=== PATIENT | male | born 1950 | race Caucasian/White ===

== ENCOUNTER 2022-02-08 07:44 | Outpatient (CLI) | payer MEDICARE, SELFPAY ==
--- NOTE | 2022-02-08 08:00 | CRLHL7_ITS ---
For Patients: As a result of the 21st Century Cures Act, medical imaging exams and procedure reports are released immediately into your electronic medical record. You may view this report before your referring provider. If you have questions, please contact your health care provider. Indication: Follow up nodule Technique: Noncontrast CT chest Comparison: CT chest 11/01/2021 and 09/07/2021 Findings: Median sternotomy heart size is normal. Dense coronary artery calcification. No pericardial effusion. No pleural effusion. Irregular nodule anterior left upper lobe measuring 5 millimeters on 07/26. Decrease from the prior study. Irregular nodule superior aspect of the right lower lobe measures 1 cm decreased in size series 3, image 41 4 millimeter nodule along the minor fissure on the right image 52 is unchanged from 09/07/2021 basilar and lingular atelectasis. Cholelithiasis. Low-attenuation lesion the right kidney incompletely assessed. Low-attenuation lesion left kidney with dependent density which may represent layering calcification incompletely assessed. No suspicious bony lesions are seen. Impression: 1. Two previous irregular nodules in the anterior left upper lobe and superior aspect of the right lower lobe are decreased in size. No new nodules are seen. No acute pulmonary findings. [employer] GUID[employer] - SOLID NODULES: SINGLE LOW RISK - nodule less than 6 mm: No routine follow-up. - nodule 6-8 mm: CT at 6-12 months, then consider CT at 18-24 months. - nodule greater than 8 mm: Consider CT at 3 months, PET/CT or tissue sampling. SINGLE HIGH RISK - nodule less than 6 mm: Optional CT at 12 months. - nodule 6-8 mm: CT at 6-12 months, then CT at 18-24 months. - nodule greater than 8 mm: Consider CT at 3 months, PET/CT or tissue sampling. MULTIPLE LOW RISK - nodule less than 6 mm: No routine follow-up. - nodule 6-8 mm: CT at 3-6 months, then consider CT at 18-24 months. - nodule greater than 8 mm: CT at 3-6 months, then consider CT at 18-24 months. MULTIPLE HIGH RISK - nodule less than 6 mm: Optional CT at 12 months. - nodule 6-8 mm: CT at 3-6 months, then at 18-24 months. - nodule greater than 8 mm: CT at 3-6 months, then at 18-24 months. Please note that all CT scans at this facility use dose modulation, iterative reconstruction, and/or weight-based dosing when appropriate to reduce radiation dose to as low as reasonably achievable. Dictated by Abi Hatch MD @ 02/08/2022 9:52:47 AM (Electronically Signed)
== END 2022-02-08 07:45 | disposition home or self-care (01) ==
PROVIDERS: PCP Family Medicine; Visit Provider Internal Medicine Pulmonary Disease
DX: R91.1 Solitary pulmonary nodule (principal)
CPT/HCPCS: 71250

== ENCOUNTER 2022-02-11 08:33 | Outpatient (CLI) | payer MEDICARE, SELFPAY | END 2022-02-11 08:34 | disposition home or self-care (01) | LOC: RAD 08:34 | PROVIDERS: PCP Family Medicine; Visit Provider Internal Medicine Cardiovascular Disease | DX: I35.0 Nonrheumatic aortic (valve) stenosis (principal); I35.1 Nonrheumatic aortic (valve) insufficiency; I34.0 Nonrheumatic mitral (valve) insufficiency; G45.9 Transient cerebral ischemic attack, unspecified | CPT/HCPCS: 93306 ==

== ENCOUNTER 2022-02-21 10:02 | Outpatient (CLI) | payer MEDICARE, SELFPAY ==
[2022-02-21 09:28] LABS: Albumin* 4.6 g/dL (3.3-5.0)
[2022-02-21 09:31] LABS: Aspartate Amino Transferase* 29 U/L (12-35); Bilirubin Direct* 0.1 mg/dL (0.0-0.5); Bilirubin Total* 0.8 mg/dL (0.1-1.5); Total Protein* 7.3 g/dL (6.0-8.3)
[2022-02-21 09:32] LABS: Alanine Aminotransferase* 28 U/L (4-50); Alkaline Phosphatase* 61 U/L (40-150)
[2022-02-25 14:56] LABS: Blood Urea Nitrogen* 20 mg/dL (7-30); Calcium* 9.7 mg/dL (8.4-10.6); Carbon Dioxide* 25 mmol/L (20-32); Chloride* 102 mmol/L (96-114); Creatinine* 1.4 mg/dL (0.5-1.5); Estimated Glomerular Filt Rate 53 ml/min; Glucose* 150 mg/dL (60-115); Potassium* 5.1 mmol/L (3.6-5.1); Sodium* 137 mmol/L (135-149)
[2022-02-25 14:57] LABS: Phosphorus* 4.6 mg/dL (2.5-4.5)
== END 2022-02-21 10:03 | disposition home or self-care (01) ==
PROVIDERS: PCP Family Medicine; Visit Provider Family Medicine
DX: Z79.899 Other long term (current) drug therapy (principal); K21.9 Gastro-esophageal reflux disease without esophagitis
CPT/HCPCS: 80069; 80076

== ENCOUNTER 2022-05-16 08:28 | Outpatient (CLI) | payer MEDICARE, SELFPAY ==
[2022-05-16 14:29] LABS: Chloride* 110 mmol/L (96-114); Potassium* 5.8 mmol/L (3.6-5.1); Sodium* 146 mmol/L (135-149)
[2022-05-16 14:30] LABS: Blood Urea Nitrogen* 17 mg/dL (7-30); Carbon Dioxide* 26 mmol/L (20-32); Creatinine* 1.3 mg/dL (0.5-1.5); Estimated Glomerular Filt Rate 58 ml/min; Glucose* 105 mg/dL (60-115)
[2022-05-16 14:31] LABS: Phosphorus* 4.4 mg/dL (2.5-4.5)
[2022-05-16 14:45] LABS: PSA Screen* 1.58 ng/mL (0.10-4.00)
[2022-05-18 05:14] LABS: Vitamin D, 1,25-Dihydroxy 62.6 pg/mL (19.9-79.3)
== END 2022-05-16 08:29 | disposition home or self-care (01) ==
PROVIDERS: PCP Family Medicine; Visit Provider Family Medicine
DX: Z00.00 Encounter for general adult medical examination without abnormal findings (principal); E87.5 Hyperkalemia; G45.9 Transient cerebral ischemic attack, unspecified; I35.0 Nonrheumatic aortic (valve) stenosis; R73.03 Prediabetes; R53.83 Other fatigue; Z12.5 Encounter for screening for malignant neoplasm of prostate; Z79.899 Other long term (current) drug therapy
CPT/HCPCS: 80048; 82652; 84100; 84153

== ENCOUNTER 2022-08-12 07:34 | Outpatient (CLI) | payer MEDICARE, SELFPAY | END 2022-08-12 07:35 | disposition home or self-care (01) | LOC: RAD 07:34 | PROVIDERS: PCP Family Medicine; Visit Provider Internal Medicine Cardiovascular Disease | DX: I35.0 Nonrheumatic aortic (valve) stenosis (principal); I35.1 Nonrheumatic aortic (valve) insufficiency; I34.0 Nonrheumatic mitral (valve) insufficiency | CPT/HCPCS: 93306 ==

== ENCOUNTER 2022-11-18 14:27 | Outpatient (CLI) | payer MEDICARE, SELFPAY | END 2022-11-18 14:28 | disposition home or self-care (01) | PROVIDERS: PCP Family Medicine; Visit Provider Family Medicine | DX: G62.9 Polyneuropathy, unspecified (principal); R53.83 Other fatigue | CPT/HCPCS: 82607; 84443 ==

== ENCOUNTER 2022-12-14 07:20 | Outpatient (CLI) | payer MEDICARE, SELFPAY | END 2022-12-14 07:21 | disposition home or self-care (01) | LOC: NFLDREF 12-15 10:56 | PROVIDERS: PCP Family Medicine; Referring Provider Family Medicine; Visit Provider Family Medicine | DX: E78.5 Hyperlipidemia, unspecified (principal) | CPT/HCPCS: 80061 ==

== ENCOUNTER 2023-03-12 17:55 | Emergency (ER) | payer MEDICARE, SELFPAY ==
[2023-03-12] VITALS (12 sets, daily range): BP systolic 130–184; BP diastolic 77–86; PULSE 64–81; RESP 16–20; TEMP 37.3; O2SAT 95–99
--- NOTE | 2023-03-12 18:22 | CRLHL7_ITS ---
For Patients: As a result of the Century Cures Act, medical imaging exams and procedure reports are released immediately into your electronic medical record. You may view this report before your referring provider. If you have questions, please contact your health care provider. INDICATION: Chest pain TECHNIQUE: Chest 2 views. COMPARISON: Chest x-ray 03/09/2021 FINDINGS: Stable postsurgical changes of median sternotomy. The heart is normal in size. The pulmonary vasculature is within normal limits. The lungs are clear without focal consolidation, pleural effusion or pneumothorax. There are mild degenerative changes of the thoracic spine. IMPRESSION: Stable chest without acute process. Dictated by Lynda Elena MD @ 03/12/2023 7:18:25 PM Dictated by: Lynda Elena MD @ 03/12/2023 19:18:32 (Electronically Signed)
[2023-03-12 18:43] LABS: Basophils Absolute Auto 0.04 K/uL (0.00-0.30); Basophils Percent Auto 0.6 % (0.0-3.0); Eosinophils Absolute Auto 0.11 K/uL (0.00-0.50); Eosinophils Percent Auto 1.6 % (0.0-7.0); Hematocrit 49.4 % (37.0-53.0); Hemoglobin* 15.9 gm/dL (13.5-17.5); Immature Granulocytes Abs Auto 0.05 K/uL (0.00-0.30); Immature Granulocytes Pct Auto 0.7 %; Lymphocytes Absolute Auto 1.85 K/uL (0.90-2.90); Lymphocytes Percent Auto 26.7 % (20-44); Mean Corpuscular HGB Conc 32 gm/dL (32-36); Mean Corpuscular Hemoglobin 29 pg (26-34); Mean Corpuscular Volume 89 fL (80-100); Monocytes Percent Auto 8.2 % (0.0-11.0); Neutrophils Absolute Auto 4.31 K/uL (1.7-7.0); Neutrophils Percent Auto 62.2 % (42.0-72.0); Platelet Count* 191 K/uL (140-440); RDW Coefficient of Variation % 13.5 % (11.5-15.5); Red Blood Count 5.54 m/uL (4.30-5.90); White Blood Count* 6.93 K/uL (4.50-11.00)
[2023-03-12 18:44] LABS: Slide Review Reflex No
[2023-03-12 18:45] LABS: Chloride* 110 mmol/L (96-114); Sodium* 141 mmol/L (135-149)
[2023-03-12 18:46] LABS: Potassium* 4.3 mmol/L (3.6-5.1)
[2023-03-12 18:48] LABS: Anion Gap 11 mEq/L (7-15); Carbon Dioxide* 20 mmol/L (20-32); Creatinine* 1.5 mg/dL (0.5-1.5); Estimated Glomerular Filt Rate 49 ml/min
[2023-03-12 18:49] LABS: Blood Urea Nitrogen* 20 mg/dL (7-30); Calcium* 8.9 mg/dL (8.4-10.6); Glucose* 112 mg/dL (60-115)
[2023-03-12 18:50] LABS: Partial Thromboplastin Time* 27 Seconds (23-33)
[2023-03-12 18:52] LABS: D Dimer Quantitative* 0.42 ug/ml (0.00-0.50)
[2023-03-12 18:55] LABS: INR 0.87 (0.91-1.10); Prothrombin Time 12.3 Seconds
[2023-03-12 18:58] LABS: NT Pro B Type NatriureticPept* 109 pg/mL
[2023-03-12 19:11] LABS: PCR FLU A Negative PCR FLU A (Negative); PCR FLU B Negative PCR FLU B (Negative); PCR RSV Negative PCR RSV (Negative)
[2023-03-12 19:12] LABS: SARS PCR* Negative SARS-CoV-2 (Negative)
--- NOTE | 2023-03-12 20:32 | ED_ITS ---
HPI - Chest Pain General Date Seen: 03/12/23 Chief Complaint: Chest Pain Stated Complaint: cheat pain, pressure Time Seen by Provider: 03/12/23 18:22 Source: patient and family Mode of arrival: ambulatory Limitations: no limitations History of Present Illness HPI narrative: Patient is a 72-year-old gentleman who presents here with left-sided upper chest pain, this came on when he was walking around with his , it lasted for approximately 15 minutes and then went away, was associated with some mild shortness of breath. He did not get nauseous and he did not vomit there is no radiation of discomfort, does have a history of coronary disease with a bypass done 4 years ago and then stents placed recently at [facility]. He also is on the list to have his aortic valve repaired. Denies any leg swelling, he is back to baseline at the present time. Took his Plavix as normal for this morning. He did have some nitroglycerin that he wears around his neck but he did not take this. When asked him why not he says he has never taken it, and he does not really know how it works. Pertinent past history: coronary artery disease, [employer] Timing of current episode: rare and now resolved Prior episodes: No Onset: during exertion Pain location: left chest Pain radiation: none Severity: moderate Quality: tightness, aching and heaviness Relieving factors: nothing Exacerbating factors: nothing Treatment prior to arrival: none Related Data Home Medications Medication Instructions Recorded Confirmed metoprolol tartrate 25 mg tablet 25 mg PO BID 01/01/22 11/18/22 ascorbic acid (vitamin C) 1,000 mg 1 g PO QDAY 04/27/22 11/18/22 tablet aspirin 81 mg capsule 81 mg PO QDAY 04/27/22 11/18/22 blm joint support PO DAILY 04/27/22 11/18/22 calcium citrate 250 mg PO BID 04/27/22 11/18/22 cholecalciferol (vitamin D3) 50 See Rx Instructions PO QDAY 04/27/22 11/18/22 mcg (2,000 unit) capsule coQ10 (ubiquinol) 100 mg capsule 200 mg PO QDAY 04/27/22 11/18/22 cyanocobalamin (vitamin B-12) 500 500 mcg PO QDAY 04/27/22 11/18/22 mcg lozenges omega 800 mg PO DAILY 04/27/22 11/18/22 prasterone (dhea) 50 mg tablet 100 mg PO QDAY 04/27/22 11/18/22 prostate support PO DAILY 04/27/22 11/18/22 pyridoxine (vitamin B6) 100 mg 50 mg PO QDAY 04/27/22 11/18/22 tablet testosterone 50 mg/5 gram (1 %) 1 tube transdermal QAM 04/27/22 11/18/22 transdermal gel triple boran bones 6 mg PO BID 04/27/22 11/18/22 vit e PO DAILY 04/27/22 11/18/22 vitamin K2 100 mcg capsule 100 mcg PO QDAY 04/27/22 11/18/22 zinc PO 04/27/22 11/18/22 clopidogrel 75 mg tablet 75 mg PO QDAY 11/18/22 11/18/22 Previous Rx's Medication Instructions Recorded famotidine 20 mg tablet 20 mg PO BID #180 tabs 07/27/22 gabapentin 100 mg capsule 100 mg PO QHS #90 caps 11/18/22 (Neurontin) atorvastatin 40 mg tablet 40 mg PO QHS #90 tabs 12/15/22 Allergies Allergy/AdvReac Type Severity Reaction Status Date / Time ciprofloxacin Allergy Intermediate Depression Verified 03/12/23 18:01 levofloxacin [From Levaquin] Allergy Unknown Depression Verified 03/12/23 18:01 Penicillins Allergy Unknown Verified 03/12/23 18:01 Review of Systems Status of ROS Reports: 10 or more systems reviewed and unremarkable except as noted in History and below [facility] Medical History Back pain ?M54.9 - Dorsalgia, unspecified (ICD-10) Laceration of scalp ?S01.01XA - Laceration without foreign body of scalp, initial encounter (ICD- 10) History of renal calculi ?Z87.442 - Personal history of urinary calculi (ICD-10) History of diverticulitis (2008) ?Z87.19 - Personal history of other diseases of the digestive system (ICD-10) History of adenomatous polyp of colon ?Z86.010 - Personal history of colonic polyps (ICD-10) Pre-diabetes ?R73.03 - Prediabetes (ICD-10) Coronary artery disease ?I25.10 - Atherosclerotic heart disease of viejas coronary artery without angina pectoris (ICD-10) Dizziness ?R42 - Dizziness and giddiness (ICD-10) COVID-19 ?U07.1 - COVID-19 (ICD-10) Aortic stenosis ?I35.0 - Nonrheumatic aortic (valve) stenosis (ICD-10) Surgical History 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) ?Z95.1 - Presence of aortocoronary bypass graft (ICD-10) Status post laparoscopic appendectomy (09/27/18) ?Z90.49 - Acquired absence of other specified parts of digestive tract (ICD- 10) History of tonsillectomy ?Z90.89 - Acquired absence of other organs (ICD-10) History of colonoscopy with polypectomy ?Z98.890 - Other specified postprocedural states (ICD-10) ?Z86.010 - Personal history of colonic polyps (ICD-10) History of cataract extraction (12/17/14) ?Z98.49 - Cataract extraction status, unspecified eye (ICD-10) History of carpal tunnel surgery of right wrist (01/17/19) ?Z98.890 - Other specified postprocedural states (ICD-10) Family History Father GI bleeding Mother High blood pressure Social History Smoking Status: Never smoker Little interest or pleasure in doing things: not at all Feeling down, depressed, or hopeless: not at all Exam Narrative Exam Narrative: He has seen initially in the hallway, he is in no apparent distress, his pain is gone away, pupils equal round reactive to light there is no scleral icterus redness is TMs are normal his oropharynx is normal JVP is flat carotid upstrokes are normal, neck is supple, chest is good air entry bilaterally with no wheezing crackles noted heart sounds no clicks murmurs or gallops. Abdomen is soft there is no guarding no organomegaly bowel sounds are normally moves all extremities independently well with absence of pitting edema, is otherwise normal. Const Vital Signs, click to edit/add: Vital Signs - 24 hr 03/12/23 18:20 03/12/23 18:51 03/12/23 19:08 Temperature 99.1 F Pulse Rate 69 Pulse Rate [Pulse Oximeter] 81 Respiratory Rate 20 Blood Pressure Blood Pressure [Right Upper Arm] 184/86 H Pulse Oximetry 99 97 96 Oxygen Delivery Method Room Air 03/12/23 19:09 03/12/23 19:15 03/12/23 19:30 Temperature Pulse Rate 68 66 65 Pulse Rate [Pulse Oximeter] Respiratory Rate Blood Pressure 148/77 H Blood Pressure [Right Upper Arm] Pulse Oximetry 96 95 96 Oxygen Delivery Method 03/12/23 19:31 03/12/23 19:45 03/12/23 20:00 Temperature Pulse Rate 66 64 67 Pulse Rate [Pulse Oximeter] Respiratory Rate Blood Pressure 141/77 H Blood Pressure [Right Upper Arm] Pulse Oximetry 96 96 96 Oxygen Delivery Method 03/12/23 20:01 03/12/23 20:15 03/12/23 20:28 Temperature Pulse Rate 65 68 Pulse Rate [Pulse Oximeter] 68 Respiratory Rate 16 Blood Pressure 130/80 Blood Pressure [Right Upper Arm] 130/80 Pulse Oximetry 95 96 98 Oxygen Delivery Method Room Air Course Course ED Course: Patient has 2 troponins 2 hours apart that are negative, EKG is reassuring chest x-ray looks normal D-dimer is normal, I spoke to Dr.Anil Marroquin from Cardiology, he recommended increasing the metoprolol to 50 mg twice daily, follow-up with primary care this week, and also get in to see from his group does he out reach here in [place]. Vital Signs Vital signs: Initial Vital Signs Respiratory Effort Normal 03/12/23 18:17 Respiratory Depth Normal 03/12/23 18:17 Respiratory Pattern Normal 03/12/23 18:17 Vital Signs Temperature 99.1 F 03/12/23 18:20 Pulse Rate 81 03/12/23 18:20 Respiratory Rate 20 03/12/23 18:20 Blood Pressure 184/86 H 03/12/23 18:20 Pulse Oximetry 99 03/12/23 18:20 Oxygen Delivery Method Room Air 03/12/23 18:20 Temperature 99.1 F 03/12/23 18:20 Pulse Rate 68 03/12/23 20:28 Respiratory Rate 16 03/12/23 20:28 Blood Pressure 130/80 03/12/23 20:28 Pulse Oximetry 98 03/12/23 20:28 Oxygen Delivery Method Room Air 03/12/23 20:28 MDM - Chest Pain MDM Narrative Medical decision making narrative: During the evaluation of this patient I considered multiple differential diagnosis is. The life-threatening differential diagnosis include coronary disease/SD, pulmonary embolism, pneumothorax, pneumonia, and aortic dissection. Other differential diagnosis included but were not limited to pericarditis, myocarditis, chest wall pain, GERD, esophageal rupture, rib fracture contusion, pleurisy, as well as other etiologies. Medical Records Data Attestation: I reviewed the patient's medical records. Lab Data Attestation: I reviewed the patient's lab results. Labs: Lab Results 03/12/23 03/12/23 03/12/23 Range/Units 18:20 18:24 19:36 WBC 6.93 (4.50-11.00) K/uL RBC 5.54 (4.30-5.90) m/uL Hgb 15.9 (13.5-17.5) gm/dL Hct 49.4 (37.0-53.0) % MCV 89 (80-100) fL MCH 29 (26-34) pg MCHC 32 (32-36) gm/dL RDW Coeff of Lida 13.5 (11.5-15.5) % Plt Count 191 (140-440) K/uL Neut % (Auto) 62.2 (42.0-72.0) % Lymph % (Auto) 26.7 (20-44) % Dickenson % (Auto) 8.2 (0.0-11.0) % Eos % (Auto) 1.6 (0.0-7.0) % Baso % (Auto) 0.6 (0.0-3.0) % Neut # (Auto) 4.31 (1.7-7.0) K/uL Lymph # (Auto) 1.85 (0.90-2.90) K/uL Dickenson # (Auto) 0.60 (0.00-0.90) K/UL Eos # (Auto) 0.11 (0.00-0.50) K/uL Baso # (Auto) 0.04 (0.00-0.30) K/uL Abs Immat Gran (auto) 0.05 (0.00-0.30) K/uL Imm/Tot Granulo (auto) 0.7 % INR 0.87 L (0.91-1.10) APTT 27 (23-33) Seconds D-Dimer Quant (PE/DVT) 0.42 (0.00-0.50) ug/ml Sodium 141 (135-149) mmol/L Potassium 4.3 (3.6-5.1) mmol/L Chloride 110 (96-114) mmol/L Carbon Dioxide 20 (20-32) mmol/L Anion Gap 11 (7-15) mEq/L BUN 20 (7-30) mg/dL Creatinine 1.5 (0.5-1.5) mg/dL Estimated GFR 49 ml/min Glucose 112 (60-115) mg/dL Calcium 8.9 (8.4-10.6) mg/dL NT-Pro-B Natriuret Pep 109 pg/mL SARS-CoV-2 (PCR) Negative SARS-CoV-2 (Negative) Influenza Type A (PCR) Negative PCR FLU A (Negative) Influenza Type B (PCR) Negative PCR FLU B (Negative) RSV (PCR) Negative PCR RSV (Negative) POC Troponin I 0.00 L 0.00 L (0.01-0.04) ng/ml Imaging Data Chest x-ray: Attestation: I have reviewed the pertinent imaging results. My impression: Chest x-rays negative for acute findings Radiologist's impression: Patient: DESTINY YI Facility:?[facility] Patient ID:?[id number] Site Patient ID:?[id number]. Site :?[id number] Study:?XRay Chest 2 VIEW-03/12/2023 7:05:52 PM Ordering Physician:Jaky Tilley Final Report: INDICATION: Chest pain TECHNIQUE: Chest 2 views. COMPARISON: Chest x-ray 03/09/2021 FINDINGS: Stable postsurgical changes of median sternotomy. The heart is normal in size. The pulmonary vasculature is within normal limits. The lungs are clear without focal consolidation, pleural effusion or pneumothorax. There are mild degenerative changes of the thoracic spine. IMPRESSION: Stable chest without acute process. Dictated by Lynda Elena MD @ 03/12/2023 7:18:25 PM Dictated by: Lynda Elena MD @ 03/12/2023 19:18:32 (Electronic Signature) ECG Data Attestation: I personally reviewed and interpreted this ECG as follows: ECG interpretation date: 03/12/23 Prior ECG tracings: available for review Interpretation: EKG x2 shows no acute findings. Compared to old EKG Discharge Plan Discharge Clinical Impression: History of aortic stenosis, History of CAD (coronary artery disease), Chest pain Patient Disposition: Home w/ Parent or Adult Condition: Improved Instructions: Chest Pain (DC) Additional Instructions: Home rest increase your metoprolol to 50 mg twice daily, follow-up with her primary care physician in the coming week to check her blood pressure, and her symptoms. Recommend you call tomorrow and get in to see from cardiology. Take the nitroglycerin if you have chest pain that does not go way, think sure your sitting down when this occurred you may take another 1 5 minutes later, if this does not take the pain away then call 911. Activity Level: No Restrictions Discharge Diet: Regular Prescriptions: No Action metoprolol tartrate 25 mg tablet 25 mg PO BID aspirin 81 mg capsule 81 mg PO QDAY blm joint support 715 mg PO DAILY calcium citrate 250 mg calcium tablet 250 mg PO BID cholecalciferol (vitamin D3) 50 mcg (2,000 unit) capsule See Rx Instructions PO QDAY Rx Instructions: 2 am, 1 pm orally every day; prasterone (dhea) 50 mg tablet 100 mg PO QDAY omega 800 mg PO DAILY prostate support PO DAILY testosterone 50 mg/5 gram (1 %) gel 1 tube transdermal QAM triple boran bones 3 mg 6 mg PO BID coQ10 (ubiquinol) 100 mg capsule 200 mg PO QDAY cyanocobalamin (vitamin B-12) 500 mcg lozenge 500 mcg PO QDAY pyridoxine (vitamin B6) 100 mg tablet 50 mg PO QDAY ascorbic acid (vitamin C) 1,000 mg tablet 1 g PO QDAY vit e 100 mcg PO DAILY vitamin K2 100 mcg capsule 100 mcg PO QDAY zinc 22 mg PO clopidogrel 75 mg tablet 75 mg PO QDAY gabapentin [Neurontin] 100 mg capsule 100 mg PO QHS Qty: 90 0RF famotidine 20 mg tablet 20 mg PO BID Qty: 180 3RF atorvastatin 40 mg tablet 40 mg PO QHS Qty: 90 1RF Follow Up/Referrals: Lyle Perry MD [Primary Care Provider] - Stand Alone Forms: BLOVES Info Instructions
== END 2023-03-12 20:52 | disposition home or self-care (01) ==
PROVIDERS: Emergency Provider Family Medicine; PCP Family Medicine
DX: R07.9 Chest pain, unspecified (principal)
CPT/HCPCS: 36415; 71046; 80048; 83880; 84484; 85025; 85379; 85610; 85730; 87631; 93005; 94761; 99284

== ENCOUNTER 2023-06-09 07:59 | Outpatient (CLI) | payer MEDICARE, SELFPAY ==
--- OUTSIDE RECORDS SUMMARY | 2023-06-12 07:28 | XMS_ITS | Encounter Summary ---
Author Name Unknown Organization [facility] Address [address], [place] [address] Care Team Providers Care Lasting Machine Operator Name Role Phone Lyle Perry MD Primary Care Provider [phone] Reason for Visit * Reason Comments Clinician Finder Team Encounter Details Date Type Department Care Team Description 12/30/2022 Telephone [facility] [id number] [facility] [place], [place] [address] Lyle Perry MD [address] [place] [address] Clinician Finder Team Social History Tobacco Use Types Packs/Day Years Used Date Smoking Tobacco: Never Smokeless Tobacco: Never PHQ-2 Answer Date Recorded PHQ-2 Score 2 03/01/2021 Sex and Gender Information Value Date Recorded Sex Assigned at Not on file Gender Identity Not on file Sexual Orientation Not on file documented as of this encounter Plan of Treatment Not on file documented as of this encounter Visit Diagnoses Not on filedocumented in this encounter Care Teams Lasting Machine Operator Relationship Specialty Start Date End Date Lyle Perry MD [address] [place] [address] PCP - General Family Practice 12/30/22 documented as of this encounter
--- OUTSIDE RECORDS SUMMARY | 2023-06-12 07:28 | XMS_ITS | Encounter Summary ---
Author Name Unknown Organization [facility] Address [address], [place] [address] Care Team Providers Care Manager New Product Name Role Phone Unassigned, Provider Primary Care Provider Unava ilable Encounter Details Date Type Department Care Team Description 12/21/2022 7:20 AM CDT Lab Visit [facility] [address] [place] [address] Low testosterone in male; Encounter for screening for malignant neoplasm of prostate Social History Tobacco Use Types Packs/Day Years Used Date Smoking Tobacco: Never Smokeless Tobacco: Never PHQ-2 Answer Date Recorded PHQ-2 Score 2 03/01/2021 Sex and Gender Information Value Date Recorded Sex Assigned at Not on file Gender Identity Not on file Sexual Orientation Not on file documented as of this encounter Plan of Treatment Not on file documented as of this encounter Procedures Procedure Name Priority Date/Time Associated Diagnosis Comments CBC AND DIFFERENTIAL PANEL Routine 12/21/2022 7:13 AM CDT Low testosterone in male TESTOSTERONE,TOTAL,FR EE & BIOAVAILABLE, MALES Routine 12/21/2022 7:13 AM CDT Low testosterone in male COMPLETE BLOOD COUNT-W/DIFF Routine 12/21/2022 7:13 AM CDT Low testosterone in male PROSTATIC SPECIFIC ANTIGEN(SCREEN) Routine 12/21/2022 7:13 AM CDT Low testosterone in male Encounter for screening for malignant neoplasm of prostate ALT (SGPT) Routine 12/21/2022 7:13 AM CDT Low testosterone in male documented in this encounter Results * Complete Blood Count-W/Diff (12/21/2022 7:13 AM CDT) WBC 6.3 3.5 - 10.5 x10(9)/L 12/21/2022 7:33 AM CDT [facility] RBC 5.33 4.32 - 5.72 x10(12)/L 12/21/2022 7:33 AM CDT [facility] Hemoglobin 15.7 13.5 - 17.5 g/dL 12/21/2022 7:33 AM CDT [facility] HCT 49.1 38.8 - 50.0 % 12/21/2022 7:33 AM CDT [facility] MCV 92.1 80.0 - 100.0 fL 12/21/2022 7:33 AM CDT [facility] MCH 29.5 27.6 - 33.3 pg 12/21/2022 7:33 AM CDT [facility] MCHC 32.0 31.5 - 35.2 g/dL 12/21/2022 7:33 AM CDT [facility] RDW 14.3 11.9 - 15.5 % 12/21/2022 7:33 AM CDT [facility] Platelets 164 150 - 450 x10(9)/L 12/21/2022 7:33 AM CDT [facility] Neutrophil Absolute 3.8 1.7 - 7.0 10(9)/L 12/21/2022 7:33 AM CDT [facility] Lymphocyte Absolute 1.7 1.0 - 4.8 10(9)/L 12/21/2022 7:33 AM CDT [facility] Monocyte Absolute 0.6 0.2 - 0.9 10(9)/L 12/21/2022 7:33 AM CDT [facility] Eosinophil Absolute 0.1 0.0 - 0.5 10(9)/L 12/21/2022 7:33 AM CDT [facility] Basophil Absolute 0.1 0.0 - 0.3 10(9)/L 12/21/2022 7:33 AM CDT [facility] Immature Granulocyte % 0.3 0.0 - 0.5 % 12/21/2022 7:33 AM CDT [facility] Blood Venipuncture / Unknown 12/21/2022 7:13 AM CDT 12/21/2022 7:13 AM CDT Klever Lim MD LAB_1 Performing Organization Address [facility]/ZIP Co de Phone Number [facility] [address] [place] [address], [facility] [phone] * Prostatic Specific Antigen (Screen) (12/21/2022 7:13 AM CDT) Prostatic Specific Antigen 1.6 0.0 - 4.0 ng/mL 12/21/2022 12:07 PM CDT [facility] Blood Venipuncture / Unknown 12/21/2022 7:13 AM CDT 12/21/2022 7:13 AM CDT Narrative [facility] - 12/21/2022 12:07 PM CDT The [employer] PSA Chemiluminescent immunoassay is used. Results obtained with different test methods or kits cannot be used interchangeably. Klever Lim MD LAB_1 Performing Organization Address [facility] Co de Phone Number [facility] [address] [place] [address], [facility] [phone] * ALT (SGPT) (12/21/2022 7:13 AM CDT) ALT (SGPT) 36 <=55 U/L 12/21/2022 11:49 AM CDT [facility] Blood Venipuncture / Unknown 12/21/2022 7:13 AM CDT 12/21/2022 7:13 AM CDT Klever Lim MD LAB_1 Performing Organization Address [facility] Co de Phone Number [facility] [address] [place] [address], [facility] [phone] * Testosterone,Free,Bioavailable,Total,Adult Males or Individuals on Testosterone Hormone Therapy (12/21/2022 7:13 AM CDT) Sex Hormone Binding Globulin Adult 25 nmol/L 12/21/2022 12:58 PM CDT [facility] Comment:Reference range not established for this age group Testosterone 380 ng/dL 12/21/2022 12:58 PM CDT [facility] Comment:Reference range not established for this age group Testosterone, Free 8.9 ng/dL 12/21/2022 12:58 PM CDT [facility] Comment:Reference range not established for this age group Testosterone, Bioavailable 208.5 ng/dL 12/21/2022 12:58 PM CDT [facility] Comment:Reference range not established for this age group Blood Venipuncture / Unknown 12/21/2022 7:13 AM CDT 12/21/2022 7:13 AM CDT [facility] - 12/21/2022 12:58 PM CDT Sex Hormone Binding Globulin: Reference range for a 20-69 year old male is 13-74 nmol/L Total Testosterone: Reference range for a 20-69 year old male is 200 - 745 ng/dL Free Testosterone: Reference range for a 20-69 year old male is 3.1 - 12.8 ng/dL Bioavailable Testosterone: Reference range for a 20-69 year old male is 71.7 - 300.0 ng/dL Klever Lim MD LAB_1 Performing Organization Address City/State/[facility] Co de Phone Number [facility] [address] [address], [facility] [phone] documented in this encounter Visit Diagnoses Diagnosis Low testosterone in male Encounter for screening for malignant neoplasm of prostate Special screening for malignant neoplasm of prostate documented in this encounter Care Teams Manager New Product Relationship Specialty Start Date End Date Unassigned, Provider [address] [place] [address] PCP - General 01/29/03 12/29/22 documented as of this encounter
--- OUTSIDE RECORDS SUMMARY | 2023-06-12 07:28 | XMS_ITS | Clinical Summary ---
Author Name Unknown Organization [facility] Address [address] [place] [address] Care Team Providers Care Case Assembler Name Role Phone Lyle Perry MD Primary Care Provider [phone] Source Comments You are receiving this document as you are listed as the primary care provider,follow-up provider, or the patient has been referred to you for consultation.This is in compliance with the Medicare and[facility] EHR Incentive Program,which states Providers who transition their patient to another setting of careor provider of care or refers their patient to another provider of care shouldprovide summary care record for each transition of care or referral. [facility] Allergies Active Allergy Reactions Criticality Noted Date Comments Ciprofloxacin Myalgias 03/08/2017 depression Levofloxacin 01/16/2020 Penicillins 01/16/2020 Medications Medication Sig Dispensed Refills Start Date End Date Status aspirin 81 MG chewable tablet Chew and swallow 81 mg by mouth. 0 Active atorvastatin (LIPITOR) 40 MG tablet 0 07/02/2020 Active cholecalciferol (VITAMIND3) 50 MCG (2000 UT) tablet Take 2,000 Units by mouth. 0 Active metoprolol tartrate (LOPRESSOR) 25 MG tablet 0 06/30/2020 Active cyanocobalamin 500 MCG tablet Take 500 mcg by mouth. 0 Active famotidine (PEPCID) 20 MG tablet 0 07/02/2020 Active tocopheryl (VITAMIN E) 400 units capsule Take 400 Units by mouth. 0 Active Riboflavin 400 MG TABS Take 1 Capsule by mouth. 0 Active [place]-3 Fatty Acids ([employer] OMEGA-3 GUMMY FISH/DHA) 113.5 MG CHEW Daily 0 Active ascorbic acid (AKA VITAMIN C) 1000 MG tablet Take 1,000 mg by mouth. 0 Active Calcium Citrate 1040 MG Take 2 Tablets by mouth. 0 Active Glucosamine-Chondroi t-Vit C-Mn (GLUCOSAMINE 1500 COMPLEX OR) Take 1,000 mg by mouth. 0 Active Nutritional Supplements (DHEA OR) Take 100 mg by mouth. 0 Active meclizine (ANTIVERT) 25 MG tablet TAKE ONE TABLET BY MOUTH EVERY EIGHT HOURS NEEDED 0 06/29/2020 Active diazePAM (VALIUM) 5 MG tablet TAKE ONE TABLET BY MOUTH TWICE DAILY NEEDED FOR DIZZINESS / ASSOCIATED NAUSEA 0 05/23/2020 Active metoprolol-hydrochlo rothiazide (DUTOPROL) 25-12.5 MG ER tablet 0 10/23/2018 Active testosterone (ANDROGEL) 50 MG/5GM (1%) gelIndications:Low testosterone in male Apply 1 Packet (50 mg of testosterone) to skin daily. 30 Packet 5 12/14/2022 Active Active Problems No known active problems Immunizations Name Administration Dates Next Due Td, Preservative Free 11/26/2004 Tdap 06/12/2017 Social History Tobacco Use Types Packs/Day Years Used Date Smoking Tobacco: Never Smokeless Tobacco: Never PHQ-2 Answer Date Recorded PHQ-2 Score 2 03/01/2021 Sex and Gender Information Value Date Recorded Sex Assigned at Not on file Gender Identity Not on file Sexual Orientation Not on file Last Filed Vital Signs Vital Sign Reading Time Taken Comments Blood Pressure 158/80 08/02/2021 3:17 PM CDT Pulse 72 08/02/2021 3:17 PM CDT Temperature 37.4 ??C (99.4 ??F) 03/01/2021 1:16 PM CD T Respiratory Rate - - Oxygen Saturation 98% 03/04/2021 3:17 PM CDT Inhaled Oxygen Concentration - - Weight 99.4 kg (219 lb 1.6 oz) 08/02/2021 3:17 P M CDT Height 180.3 cm (5' 11) 08/02/2021 3:17 PM CDT Body Mass Index 30.56 08/02/2021 3:17 PM CDT Plan of Treatment Health Maintenance Due Date Last Done Comments Colon Cancer Screening Plan Due 1950 Hep C Screening (Preventive Services) 1950 Medicare Welcome Visit 1950 COVID-19 Vaccine (#1) 05/10/1950 Cholesterol 1984 Zoster/Shingles (1 of 2) 11/08/1999 Pneumococcal 65+ Yrs (1 - PCV) 2014 Influenza (#1) 2023 DTaP/Tdap/Td (2 - Tdap) 06/12/2027 06/12/19 18, 11/26/2004, 11/26/2004 HepA Aged Out No longer eligi ble based on patient's age to complete this topic HepB Aged Out No longer eligi ble based on patient's age to complete this topic Hib Aged Out No longer eligi ble based on patient's age to complete this topic IPV (Polio) Aged Out No longer eligi ble based on patient's age to complete this topic MCV4 Aged Out No longer eligi ble based on patient's age to complete this topic Care Teams Case Assembler Relationship Specialty Start Date End Date Lyle Perry MD [address] [place] [address] PCP - General Family Practice 12/30/22
--- OUTSIDE RECORDS SUMMARY | 2023-06-12 07:28 | XMS_ITS | Encounter Summary ---
Author Name Unknown Organization [facility] Address [address], [place] [address] Care Team Providers Care Continuous Drier Operator Name Role Phone Unassigned, Provider Primary Care Provider Unava ilable Reason for Visit * Reason Comments Follow-up Encounter Details Date Type Department Care Team Description 12/14/2022 Telephone [place] [address] [place] [address]. [place], [place] [id number] Klever Lim MD [facility] [place], [place] [id number] Follow-up Social History Tobacco Use Types Packs/Day Years Used Date Smoking Tobacco: Never Smokeless Tobacco: Never PHQ-2 Answer Date Recorded PHQ-2 Score 2 03/01/2021 Sex and Gender Information Value Date Recorded Sex Assigned at Not on file Gender Identity Not on file Sexual Orientation Not on file documented as of this encounter Nursing Notes * Emely Grigsby RN - 12/14/2022 2:53 PM CDT Chart notes faxed to number below ----- Message from Klever Lim MD sent at 12/14/2022 2:45 PM CDT ----- Please send my notes to Dr Lyle Perry at [facility] Fax number for the clinic Klever Lim MD Endocrinology Service documented in this encounter Plan of Treatment Not on file documented as of this encounter Visit Diagnoses Not on filedocumented in this encounter Care Teams Continuous Drier Operator Relationship Specialty Start Date End Date Unassigned, Provider [address] [place] [address] PCP - General 01/29/03 12/29/22 documented as of this encounter
--- OUTSIDE RECORDS SUMMARY | 2023-06-12 07:29 | XMS_ITS ---
Author Name Unknown Organization [facility] Address [address] [place] [address] Care Team Providers Care Door Clamper Name Role Phone Unavailable Unavailable Unavailable Surgery Details Not on file Complications Check Surgery Details section. Procedure Estimated Blood Loss Check Surgery Details section. Procedure Findings Check Surgery Details section. Procedure Specimens Taken Check Surgery Details section.
--- OUTSIDE RECORDS SUMMARY | 2023-06-12 07:29 | XMS_ITS | Continuity of Care Document ---
Author Name Unknown Organization [facility] Address [address] [place] [address] Care Team Providers Care Pad Tufter Name Role Phone Unavailable Primary Care Provider Unavailabl e Source Comments Patient records contain information from all sites at [facility]. For routine questions regarding patient records, call [phone] during business hours, M-F 8:00 AM - 5:00 PM Central Time. Record requests for emergency care only can be directed to [phone] at any time.[facility] Encounters Date Type Department Care Team Description 09/30/2021 8:00 AM CDT Comprehensive Visit Department of Neurology in [address] [address] Mer Chiang M.D., M.P.H. Transient Ischemic Attack (Primary Dx); Headache Stabbing Idiopathic 02/11/2017 10:35 AM CDT - 02/11/2017 11:59 PM CDT Hospital Encounter [facility] Titi Odonnell, PShavonA.-Adria 12/22/2015 11:28 AM CDT - 12/22/2015 11:59 PM CDT Hospital Encounter [facility] nE Farley M.D. Allergies Active Allergy Reactions Criticality Noted Date Comments Ciprofloxacin Myalgia,Other (see comments) 03/08/2017 depression depression Levofloxacin Other (see comments) 01/16/2020 Penicillins Other (see comments) 12/22/2015 Tolerated Ancef on previous admission Medications Medication Sig Dispensed Refills Start Date End Date Status aspirin 81 mg capsule Take 1 tablet by mouth daily. 0 12/22/2015 Active atorvastatin (LIPITOR) 40 mg tablet 0 07/07/2021 Active cholecalciferol (VITAMIN D3) 50 mcg (2,000 Unit) tablet Take 2,000 Units by mouth. 0 Active clopidogreL (PLAVIX) 75 mg tablet Take 75 mg by mouth daily. 0 08/26/2021 Active cyanocobalamin (VITAMIN B12) 500 mcg tablet Take 500 mcg by mouth. 0 Active famotidine (PEPCID) 20 mg tablet 0 09/27/2021 Active metoprolol tartrate (LOPRESSOR) 25 mg tablet Take 25 mg by mouth. 0 06/30/2020 Acti ve omega-3 fatty acids 100 mg tablet,chewable daily. 0 Active testosterone (ANDROGEL) 50 mg/5 g (1%) gel 0 09/27/2021 Active vitamin E 180 mg (400 Unit) capsule Take 400 Units by mouth. 0 Active riboflavin, vitamin B2, 400 mg tablet Take 1 capsule by mouth. 0 Active ascorbic acid, vitamin C, (VITAMIN C) 1,000 mg tablet Take 1,000 mg by mouth. 0 Active UNABLE TO FIND Med Name:Zinc Gluconate 30 mg daily 0 Active UNABLE TO FIND Med Name:Triple [place] Complex 2 tablets daily. 0 Active prasterone, dhea, (DHEA) 25 mg tablet Take 25 mg by mouth daily. 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 Social History Smoking Status as of 06/12/2023 Tobacco Use Types Packs/Day Years Used Date Smoking Tobacco: Never Assessed Nutrition Answer Date Recorded Nutrition: EVOO Fat Source Unknown 08/31 Nutrition: Servings of Fruits/Vegetables per Day Not on file 08/31/2021 Dental Answer Date Recorded Dental: Regular Dentist Unknown 09/01/19 Sex and Gender Information Value Date Recorded Sex Assigned at Not on file Gender Identity Not on file Sexual Orientation Not on file Last Filed Vital Signs Vital Sign Reading Time Taken Comments Blood Pressure 137/74 09/30/2021 8:06 AM CDT Pulse 78 09/30/2021 8:06 AM CDT Temperature - - Respiratory Rate - - Oxygen Saturation - - Inhaled Oxygen Concentration - - Weight 93.5 kg (206 lb 2.1 oz) 09/30/2021 7:46 A M CDT Height 179 cm (5' 10.47) 09/30/2021 7:46 AM CDT Body Mass Index 29.18 09/30/2021 7:46 AM CDT Plan of Treatment Not on file Procedures Procedure Name Priority Date/Time Associated Diagnosis Comments DX CHEST AP OR PA AND LATERAL 2 VIEWS Routine 02/11/2017 11:36 AM CDT ECHO TRANSTHORACIC (TTE) Routine 12/08/2014 11:32 AM CDT ECHOCARDIOLOGY IMAGE EXAM Routine 12/08/2014 11:15 AM CDT ECHOCARDIOLOGY IMAGE EXAM Routine 08/27/2010 9:07 AM CDT ECHOCARDIOGRAM Routine 08/27/2010 9:00 AM CDT Results * DX Chest AP or PA and Lateral 2 Views (02/11/2017 11:36 AM CDT) Anatomical Region Laterality Modality Chest N/A Radiographic Mariely ging 02/11/2017 11:3 6 AM CDT Impressions 02/11/2017 11:39 AM CDT Patchy infiltrate in the right lower lobe, best seen on the lateral view. This could represent pneumonitis. Shallow inspiration. Prominent fat pad at the cardiac apex. Tortuous aorta. Electronically signed by: ?? Ca Ellison MD. ??[id number] 11-Feb-2017 11:39 Narrative 02/11/2017 11:39 AM CDT 11-Feb-2017 11:36:00 ??Exam: Chest-- 2 Views Indications: cough ? pneumonia?? ORIGINAL REPORT - 11-Feb-2017 11:39:00 EXAM: Chest 2 views: Procedure Note Johnathon Ellison M.D. - 08/02/2017 11-Feb-2017 11:36:00 Exam: Chest-- 2 Views Indications: cough pneumonia?? ORIGINAL REPORT - 11-Feb-2017 11:39:00 EXAM: Chest 2 views: IMPRESSION: Patchy infiltrate in the right lower lobe, best seen on thelateral view. This could represent pneumonitis. Shallow inspiration.Prominent fat pad at the cardiac apex. Tortuous aorta. Electronically signed by: Ca Ellison MD. [id number] 11-Feb-2017 11:39 Titi Odonnell P.A.-C. IMG DIAGNOSTIC IMAGING PROCEDURES * Echo Transthoracic (TTE) (12/08/2014 11:32 AM CDT) Anatomical Region Laterality Modality Echocardiography 12/08/2014 11:3 2 AM CDT Historical Provider CV ECHO PROCEDURES * ECHOCARDIOLOGY IMAGE EXAM (12/08/2014 11:15 AM CDT) Only the most recent of2 resultswithin the time period is included. Anatomical Region Laterality Modality Other 12/08/2014 11:1 5 AM CDT Addenda Addendum by ProviderTessa M.D. 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
--- OUTSIDE RECORDS SUMMARY | 2023-06-12 07:29 | XMS_ITS | Referral Summary ---
Author Name Unknown Organization [facility] Address [address] [place] [address] Care Team Providers Care Typing Pool Supervisor Name Role Phone Unavailable Primary Care Provider Unavailabl e Source Comments Patient records contain information from all sites at [facility]. For routine questions regarding patient records, call [phone] during business hours, M-F 8:00 AM - 5:00 PM Central Time. Record requests for emergency care only can be directed to [phone] at any time.[facility] Allergies Active Allergy Reactions Criticality Noted Date [...] 0 Active UNABLE TO FIND Med Name:Triple [place] Complex 2 tablets daily. 0 Active prasterone, dhea, (DHEA) 25 mg tablet Take 25 mg by mouth daily. 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
--- OUTSIDE RECORDS SUMMARY | 2023-06-12 07:29 | XMS_ITS | Encounter Summary ---
Author Name Unknown Organization [facility] Address [address] [place] [address] Care Team Providers Care Lumber Sticker Name Role Phone Unassigned, Provider Primary Care Provider Unava ilable Reason for Visit * Reason Comments Refill testosterone (ANDROG EL) 50 MG/5GM (1%) gel [Pharmacy Med Name: TESTOSTERONE GEL 1% 5GM (ANDROGEL)] Encounter Details Date Type Department Care Team Description 10/23/2022 Refill [facility] [address] [place], [place] [id number] Hannah Fernandez MD [address] [place] [address] Refill (testosterone (ANDROGEL) 50 MG/5GM (1%) gel [Pharmacy Med Name: TESTOSTERONE GEL 1% 5GM (ANDROGEL)]) Social History Tobacco Use Types Packs/Day Years Used Date Smoking Tobacco: Never Smokeless Tobacco: Never PHQ-2 Answer Date Recorded PHQ-2 Score 2 03/01/2021 Sex and Gender Information Value Date Recorded Sex Assigned at Not on file Gender Identity Not on file Sexual Orientation Not on file documented as of this encounter Nursing Notes * Interface, Out Surescripts Prov Query - 10/23/2022 3:41 PM CDT testosterone (ANDROGEL) 50 MG/5GM (1%) gel [Pharmacy Med Name: TESTOSTERONE GEL 1% 5GM (ANDROGEL)] None Exists (controlled substance) -> Medication cannot be delegated. Last qualifying visit: 08/02/2021 (in [facility]) Next scheduled visit: 12/14/2022 (in [facility]) Last ordered by HANNAH FERNANDEZ (38 days ago) QTY: 30, Refills: 0, Sig: apply the contents of 1 packet to skin daily (changed but equivalent) [employer] Embedded Refills, Reference: [id number], 10/23/2022 3:41:21 PM CDT, Pool: TANO PNREFILL ([id number]) * Interface, Out StepUp Prov Query - 10/23/2022 3:41 PM CDT No Careplan note found by Liquid Light. documented in this encounter Plan of Treatment Not on file documented as of this encounter Visit Diagnoses Diagnosis Low testosterone in male documented in this encounter Care Teams Lumber Sticker Relationship Specialty Start Date End Date Unassigned, Provider [address] [place] [address] PCP - General 01/29/03 12/29/22 documented as of this encounter
--- OUTSIDE RECORDS SUMMARY | 2023-06-12 07:29 | XMS_ITS | Encounter Summary ---
Author Name Unknown [facility] Address [address], [place] [address] Care Team Providers Care Maritime Pilot Name Role Phone Unassigned, Provider Primary Care Provider Unava ilable Reason for Visit * Reason Comments Refill testosterone (ANDROG EL) 50 MG/5GM (1%) gel [Pharmacy Med Name: TESTOSTERONE GEL 1% 5GM (ANDROGEL)] Encounter Details Date Type Department Care Team Description 09/13/2022 Refill [facility] [address] [place] [address] Hannah Fernandez MD [facility] [place], [place] [id number] Refill (testosterone (ANDROGEL) 50 MG/5GM (1%) gel [...] as of this encounter Nursing Notes * Erik Hand - 09/14/2022 4:52 PM CDT Future Appointments Date Time Provider Department Center 12/14/2022 2:30 PM Hannah Fernandez MD [id number] * Siobhan Cummings RN - 09/14/2022 3:49 PM CDT Call pt; assist him to schedule a follow up as he is overdue to be seen. Return request to shahid once appt has been made. * Interface, Out SaySwap Query - 09/13/2022 8:24 AM CDT testosterone (ANDROGEL) 50 MG/5GM (1%) gel [Pharmacy Med Name: TESTOSTERONE GEL 1% 5GM (ANDROGEL)] None Exists (controlled substance) -> Unable to determine if sig has changed, review required. -> Medication cannot be delegated. Last qualifying visit: 08/02/2021 (in [facility]) Next scheduled visit: None Last ordered by HANNAH FERNANDEZ (179 days ago) QTY: 30, Refills: 5, Sig: apply 1packet (50 mg of testosterone) to skin daily. (changed) [employer] Embedded Refills, Reference: [id number], 09/13/2022 8:24:43 AM CDT, Shahid: ENDO PNREFILL ([id number]) * Interface, Out Enikos Prov Query - 09/13/2022 8:24 AM CDT No Careplan note found by flikdate. documented in this encounter Plan of Treatment Not on file documented as of this encounter Visit Diagnoses Diagnosis Low testosterone in male documented in this encounter Care Teams Maritime Pilot Relationship Specialty Start Date End Date Unassigned, Provider [address] [place] [address] PCP - General 01/29/03 12/29/22 documented as of this encounter
--- OUTSIDE RECORDS SUMMARY | 2023-06-12 07:29 | XMS_ITS | Encounter Summary ---
Author Name Unknown Organization [facility] Address [address], [place] [address] Care Team Providers Care Organizational Consultant Name Role Phone Unassigned, Provider Primary Care Provider Unava ilable Encounter Details Date Type Department Care Team Description 12/14/2022 2:30 PM CDT Telemedicine [place] [address] [place] [address]. [place], [place] [phone] Klever Lim MD [address] [place] [id number] Low testosterone in male; Encounter for screening for malignant neoplasm of prostate Social History Tobacco Use Types Packs/Day Years Used Date Smoking Tobacco: Never Smokeless Tobacco: Never PHQ-2 Answer Date Recorded PHQ-2 Score 2 03/01/2021 Sex and Gender Information Value Date Recorded Sex Assigned at Not on file Gender Identity Not on file Sexual Orientation Not on file documented as of this encounter Progress Notes * Kleevr Lim MD - 12/14/2022 2:30 PM CDT Endocrinology Visit 12/14/2022 OFFICE VISIT REASON FOR VISIT: Follow-up for testosterone replacement therapy [place] HPI 72 y.o. pleasant male with history of Low libido 6-9 months. ED for years. Lab testing in 2019 showed low testosterone with low normal LH Mr. Bishop started TRT around January 2020. His PSA levels increased from 0.7 baseline to 1.3 in April. In July, PSA were stable at 1.1. Energy levels improved significantly. Erections are full, libido has improved quite a bit. No breast tissue, no urine problems. He has no new complains. In Jun 2020: developed dizziness and flushing. Resolved after adjusting blood pressure medications INTERVAL HISTORY Overall he feels well Required some new stenting and is on the cardiology study for valve replacement No new complaints Compliant with medications No urinary issues No gynecomastia Normal libido and erections ROS otherwise noncontributory to current presentation. I have reviewed PMH / PSH / FH and SH, Medications and Allergies in [facility] today. EXAM Alert and oriented Normal speech No testosterone labs since 2021 ASSESSMENT 1. Secondary Hypogonadism: normal LH in the setting of low T, with symptoms of hypogonadism. 2. Excessive fatigue. Improved. 3. Flushing - resolved 3. NSTEMI and CABG, stable. PLAN Continue testosterone gel at 50 mg daily Labs: Total testosterone, ALT, CBC and PSA every 6 months If there is a rising PSA trend, urology follow-up is recommended He can do these labs and follow up with Dr Perry every 6 months. We will send our recommendations to his office by fax If there is ever a problem, we will see him as needed Klever Lim MD Endocrinology Service documented in this encounter Plan of Treatment Not on file documented as of this encounter Results * Prostatic Specific Antigen (Screen) (12/21/2022 7:13 AM CDT) Prostatic Specific Antigen 1.6 0.0 - 4.0 ng/mL 12/21/2022 12:07 PM CDT [facility] Blood Venipuncture / Unknown 12/21/2022 7:13 AM CDT 12/21/2022 7:13 AM CDT Narrative [facility] - 12/21/2022 12:07 PM CDT The Ferrer PSA Chemiluminescent immunoassay is used. Results obtained with different test methods or kits cannot be used interchangeably. Klever Lim MD LAB_1 [facility] [address] [address] [phone] * ALT (SGPT) (12/21/2022 7:13 AM CDT) ALT (SGPT) 36 <=55 U/L 12/21/2022 11:49 AM CDT [facility] Blood Venipuncture / Unknown 12/21/2022 7:13 AM CDT 12/21/2022 7:13 AM CDT Klever Lim MD LAB_1 [facility] [address] [phone] * Testosterone,Free,Bioavailable,Total,Adult Males or Individuals on Testosterone Hormone Therapy (12/21/2022 7:13 AM CDT) Sex Hormone Binding Globulin Adult 25 nmol/L 12/21/2022 12:58 PM CDT [facility] Comment:Reference range not established for this age group Testosterone 380 ng/dL 12/21/2022 12:58 PM CDT [facility] Comment:Reference range not established for this age group Testosterone, Free 8.9 ng/dL 12/21/2022 12:58 PM CDT [facility] Comment:Reference range not established for this age group Testosterone, Bioavailable 208.5 ng/dL 12/21/2022 12:58 PM T [facility] Comment:Reference range not established for this age group Blood Venipuncture / Unknown 12/21/2022 7:13 AM CDT 12/21/2022 7:13 AM CDT Narrative [facility] - 12/21/2022 12:58 PM CDT Sex [...] - 300.0 ng/dL Klever Lim MD LAB_1 [facility] [address] [place] [address], [facility] [phone] documented in this encounter Visit Diagnoses Diagnosis Low testosterone in male Encounter for screening for malignant neoplasm of prostate Special screening for malignant neoplasm of prostate documented in this encounter Care Teams Organizational Consultant Relationship Specialty Start Date End Date Unassigned, Provider [address] [place] [address] PCP - General 01/29/03 12/29/22 documented as of this encounter
== END 2023-06-09 08:00 | disposition home or self-care (01) ==
LOC: NFLDREF 06-12 07:27
PROVIDERS: PCP Family Medicine; Referring Provider Family Medicine; Visit Provider Family Medicine
DX: Z00.00 Encounter for general adult medical examination without abnormal findings (principal); E34.9 Endocrine disorder, unspecified; G62.9 Polyneuropathy, unspecified; R53.83 Other fatigue; D61.818 Other pancytopenia
CPT/HCPCS: 80076; 82306; 84270; 84402; 84403; G0103

== ENCOUNTER 2023-09-05 07:39 | Outpatient (CLI) | payer MEDICARE, SELFPAY ==
--- OUTSIDE RECORDS SUMMARY | 2023-09-05 07:41 | XMS_ITS | Continuity of Care Document ---
Author Name Unknown Organization [facility] Address [address] [place] [address] Care Team Providers Care Enrollment Counselor Name Role Phone Unavailable Primary Care Provider Unavailabl e Source Comments Patient records contain information from all sites at [facility]. For routine questions regarding patient records, call [phone] during business hours, M-F 8:00 AM - 5:00 PM Central Time. Record requests for emergency care only can be directed to [phone] at any time.[facility] Encounters Date Type Department Care Team Description 09/30/2021 8:00 AM CDT Comprehensive Visit Department of Neurology in [address] [address] Mer Chiang M.D., M.P.H. Transient Ischemic Attack (Primary Dx); Headache Stabbing Idiopathic 02/11/2017 10:35 AM CDT - 02/11/2017 11:59 PM CDT Hospital En[facility] Titi Odonnell, PShavonA.-Adria 12/22/2015 11:28 AM CDT - 12/22/2015 11:59 PM CDT Hospital Encounter HX [facility] En Farley M.D. Allergies Active Allergy Reactions Criticality Noted Date Comments Ciprofloxacin Myalgia,Other (see comments) 03/08/2017 depression depression Levofloxacin Other (see comments) 01/16/2020 Penicillins Other (see comments) 12/22/2015 Tolerated Ancef on previous admission Medications Medication Sig Dispensed Refills Start Date End Date Status aspirin 81 mg capsule Take 1 tablet by mouth daily. 12/22/2015 Active atorvastatin (LIPITOR) 40 mg tablet 07/07/2021 Active cholecalciferol (VITAMIN D3) 50 mcg (2,000 Unit) tablet Take 2,000 Units by mouth. Active clopidogreL (PLAVIX) 75 mg tablet Take 75 mg by mouth daily. 08/26/2021 Active cyanocobalamin (VITAMIN B12) 500 mcg tablet Take 500 mcg by mouth. Active famotidine (PEPCID) 20 mg tablet 09/27/2021 Active metoprolol tartrate (LOPRESSOR) 25 mg tablet Take 25 mg by mouth. 06/30/2020 Acti ve omega-3 fatty acids 100 mg tablet,chewable daily. Active testosterone (ANDROGEL) 50 mg/5 g (1%) gel 09/27/2021 Active vitamin E 180 mg (400 Unit) capsule Take 400 Units by mouth. Active riboflavin, vitamin B2, 400 mg tablet Take 1 capsule by mouth. Active ascorbic acid, vitamin C, (VITAMIN C) 1,000 mg tablet Take 1,000 mg by mouth. Active UNABLE TO FIND Med Name:Zinc Gluconate 30 mg daily Active UNABLE TO FIND Med Name:Triple [place] Complex 2 tablets daily. Active prasterone, dhea, (DHEA) 25 mg tablet Take 25 mg by mouth daily. 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
--- OUTSIDE RECORDS SUMMARY | 2023-09-05 07:41 | XMS_ITS | Referral Summary ---
Author Name Unknown Organization [facility] Address [address] [place] [address] Care Team Providers Care Decorator Mannequin Name Role Phone Unavailable Primary Care Provider Unavailabl e Source Comments Patient records contain information from all sites at [facility]. For routine questions regarding patient records, call [phone] during business hours, M-F 8:00 AM - 5:00 PM Central Time. Record requests for emergency care only can be directed to [phone] at any time.[facility] Allergies Active Allergy Reactions Criticality Noted Date [...] daily Active UNABLE TO FIND Med Name:Triple [place] Complex 2 tablets daily. Active prasterone, dhea, [...] PANEL, S/P Routine 10/23/2017 6:50 AM CDT from Last 3 Months or Most Recently Relevant to Health Maintenance
--- OUTSIDE RECORDS SUMMARY | 2023-09-05 07:41 | XMS_ITS | Clinical Summary ---
Author Name Unknown Organization [facility] Address [address] [place] [address] Care Team Providers Care Middle School Librarian Name Role Phone Lyle Perry MD Primary Care Provider [phone] Source Comments You are receiving this document as you are listed as the primary care provider,follow-up provider, or the patient has been referred to you for consultation.This is in compliance with the Medicare and[facility] EHR Incentive Program,which states Providers who transition their patient to another setting of careor provider of care or refers their patient to another provider of care shouldprovide summary care record for each transition of care or referral. [facility] Allerg[facility] Active Allergy Reactions Criticality Noted Date Comments Ciprofloxacin Myalgias 03/08/2017 depression Levofloxacin 01/16/2020 Penicillins 01/16/2020 Medications Medication Sig Dispensed Refills Start Date End Date Status aspirin 81 MG chewable tablet Chew and swallow 81 mg by mouth. Active atorvastatin (LIPITOR) 40 MG tablet 07/02/2020 Active cholecalciferol (VITAMIND3) 50 MCG (1999 [place]) tablet Take 2,000 Units by mouth. Active metoprolol tartrate (LOPRESSOR) 25 MG tablet 06/30/2020 Active cyanocobalamin 500 MCG tablet Take 500 mcg by mouth. Active famotidine (PEPCID) 20 MG tablet 07/02/2020 Active tocopheryl (VITAMIN E) 400 units capsule Take 400 Units by mouth. Active Riboflavin 400 MG TABS Take 1 Capsule by mouth. Active [place]-3 Fatty Acids ([employer] OMEGA-3 GUMMY FISH/DHA) 113.5 MG CHEW Daily Active ascorbic acid (AKA VITAMIN C) 1000 MG tablet Take 1,000 mg by mouth. Active Calcium Citrate 1040 MG Take 2 Tablets by mouth. Active Glucosamine-Chondroi t-Vit C-Mn (GLUCOSAMINE 1500 COMPLEX OR) Take 1,000 mg by mouth. Active Nutritional Supplements (DHEA OR) Take 100 mg by mouth. Active meclizine (ANTIVERT) 25 MG tablet TAKE ONE TABLET BY MOUTH EVERY EIGHT HOURS NEEDED 06/29/2020 Active diazePAM (VALIUM) 5 MG tablet TAKE ONE TABLET BY MOUTH TWICE DAILY NEEDED FOR DIZZINESS / ASSOCIATED NAUSEA 05/23/2020 Active metoprolol-hydrochlo rothiazide (DUTOPROL) 25-12.5 MG ER tablet 10/23/2018 Active testosterone (ANDROGEL) 50 MG/5GM (1%) [...] (Preventive Services) 1950 Medicare Welcome Visit 1950 Cholesterol 1984 Zoster/Shingles (1 of 2) 11/08/1999 Pneumococcal 65+ Yrs (1 - PCV) 2014 COVID-19 Vaccine (1 - 2022-2 4 season) 2023 Influenza (#1) 2023 DTaP/Tdap/Td (2 - Tdap) 06/12/2027 06/12/19 18, 11/26/2004 HepA Aged Out No longer eligi [...] age to complete this topic Care Teams Middle School Librarian Relationship Specialty Start Date End Date Lyle Perry MD [address] [place] [address] PCP - General Family Practice 12/30/22
--- OUTSIDE RECORDS SUMMARY | 2023-09-05 07:41 | XMS_ITS ---
Author Name Unknown Organization [facility] Address [address] [place] [address] Care Team Providers Care Youth Minister Name Role Phone Unavailable Unavailable Unavailable Surgery Details Not on file Complications Check Surgery Details section. Procedure Estimated Blood Loss Check Surgery Details section. Procedure Findings Check Surgery Details section. Procedure Specimens Taken Check Surgery Details section.
--- NOTE | 2023-09-05 08:00 | CT_ITS ---
Patient: DESTINY YI Facility:?[facility] Patient ID:?[id number] Site Patient ID:?[id number]. Site :?1950 Study:?CT-Chest WITHOUT-09/05/2023 8:04:35 AM Ordering Physician:?DR. DIAZ Final Report: INDICATION: Follow-up nodules COMPARISON: February 09, 2020 second and November 01, 2021 TECHNIQUE: : CT examination of the chest was performed without contrast. Thin axial sections were obtained from above the apices of the lungs to the lung bases. Please note that all CT scans at this facility use dose modulation, iterative reconstruction, and/or weight-based dosing when appropriate to reduce radiation dose to as low as reasonably achievable. FINDINGS: : HEART and MEDIASTINUM: Heart size normal. No mediastinal or hilar adenopathy or mass. Sternotomy. Atherosclerotic vascular calcifications. There has been a TAVR. LUNGS: Bibasilar atelectasis or scarring. A few small nodules are identified. On the left, there is an upper lobe nodule measuring about 3.5 millimeters on series 3, image 19. Similar to the prior study and smaller than the study before last. There is a nodule in the superior segment of the right lower lobe measuring about 7.5 millimeters. Unchanged since the most recent study and somewhat smaller than the study before last. Very small right middle lobe nodule measuring about 2.5 millimeters unchanged since the prior 2 studies. Additional smaller nodules are identified and are unchanged. PLEURAL SPACES: There is no pleural effusion, pneumothorax or pleural based mass. VISUALIZED UPPER ABDOMEN: Cholelithiasis. Renal lesions likely cysts. Otherwise, the limited visualized upper abdominal structures appear normal. OSSEOUS STRUCTURES: Age-appropriate appearance. No acute fracture or destructive process. TUBES and LINES: None. IMPRESSION: 1. Benign-appearing nodules. Unless there is clinical cause otherwise, serial follow-up is not required based on the current imaging appearance 2. No mediastinal or hilar adenopathy or mass. No pleural effusion. Sternotomy. Atherosclerotic vascular calcifications. TAVR. 3. Cholelithiasis. Renal cysts. Please note that all CT scans at this facility use dose modulation, iterative reconstruction, and/or weight-based dosing when appropriate to reduce radiation dose to as low as reasonably achievable. Dictated by Darrian Henderson MD @ 09/05/2023 9:10:53 AM Signed by:?Darrian Henderson MD @09/05/2023 9:10:53 AM (Electronic Signature)
== END 2023-09-05 07:40 | disposition home or self-care (01) ==
LOC: CT 07:39
PROVIDERS: PCP Family Medicine; Visit Provider Family Medicine
DX: R91.8 Other nonspecific abnormal finding of lung field (principal); K80.20 Calculus of gallbladder without cholecystitis without obstruction; N28.1 Cyst of kidney, acquired
CPT/HCPCS: 71250

== ENCOUNTER 2023-09-21 15:59 | Inpatient (IN) | payer MEDICARE, SELFPAY ==
[2023-09-21 16:17] VITALS: BP 91/53; PULSE 98; TEMP 36.9; O2SAT 96; BMI 25.8
--- NOTE | 2023-09-21 16:38 | CT_ITS ---
Patient: DESTINY YI Facility:?[facility] Patient ID:?[id number] Site Patient ID:?[id number] Site :?1950 Study:?CT-Abdomen/Pelvis WO-09/21/2023 6:24:21 PM Ordering Physician:FEDERICO Final Report: INDICATION: LOWER ABD PAIN, FEVER. TECHNIQUE: CT abdomen and pelvis without contrast. COMPARISON: None. FINDINGS: Limited evaluation of the intra-abdominal solid organs without IV contrast. Lower chest: Bibasilar linear opacities likely atelectasis. Liver: Normal in size and attenuation. No suspicious masses. Gallbladder and bile ducts: Cholelithiasis without CT evidence of cholecystitis. Pancreas: Unremarkable. No mass or inflammation. Spleen: Normal in size. No masses. Adrenal glands: Normal in size. No nodules. Kidneys: Normal in size. No suspicious masses, stones, or hydronephrosis. GI tract: Unremarkable. Normal in caliber. No sign of mass or inflammation. Colonic diverticulosis without evidence of diverticulitis. Probable prior appendectomy. No bowel obstruction. Vasculature: Abdominal aorta is normal in caliber. Lymph nodes: No lymphadenopathy. Peritoneum/Abdominal Wall: Unremarkable. No sign of mass or infiltration. No free air or significant free fluid. Pelvis: Circumferential bladder wall thickening, may be related to cystitis. Correlate with UA. Coarse calcifications in the prostate. Bones: Unremarkable for age. IMPRESSION: 1. circumferential bladder wall thickening may be related to cystitis. Correlate with UA. 2. Cholelithiasis without CT evidence of cholecystitis. 3. Colonic diverticulosis without evidence of acute diverticulitis. Please note that all CT scans at this facility use dose modulation, iterative reconstruction, and/or weight-based dosing when appropriate to reduce radiation dose to as low as reasonably achievable. Dictated by Jamshid Vivar MD @ 09/21/2023 6:42:31 PM Signed by:?Jamshid Vivar MD @09/21/2023 6:42:31 PM (Electronic Signature)
[2023-09-21] MEDS: 0.9 % SODIUM CHLORIDE 1000 ml 1,000 ML IV ×2 (17:00→18:55)
--- OUTSIDE RECORDS SUMMARY | 2023-09-21 17:05 | XMS_ITS | Referral Summary ---
Author Name Unknown Organization [facility] Address [address] [place] [address] Care Team Providers Care Hospice Clinical Marketer Name Role Phone Unavailable Primary Care Provider Unavailabl e Source Comments Patient records contain information from all sites at [facility]. For routine questions regarding patient records, call [phone] during business hours, M-F 8:00 AM - 5:00 PM Central Time. Record requests for emergency care only can be directed to [phone] at any time.[facility] Allergies Active Allergy Reactions Criticality Noted Date [...] daily Active UNABLE TO FIND Med Name:Triple [place] Complex 2 tablets daily. Active prasterone, dhea, [...]
--- OUTSIDE RECORDS SUMMARY | 2023-09-21 17:05 | XMS_ITS | Clinical Summary ---
Author Name Unknown Organization [facility] Address [address] [place] [address] Care Team Providers Care Bilingual Medical Receptionist Name Role Phone Lyle Perry MD Primary Care Provider [phone] Source Comments You are receiving this document as you are listed as the primary care provider,follow-up provider, or the patient has been referred to you for consultation.This is in compliance with the Medicare and[facility],which states Providers who transition their patient to another setting of careor provider of care or refers their patient to another provider of care shouldprovide summary care record for each transition of care or referral. [facility] Allergies Active Allergy Reactions Criticality Noted Date [...] TABS Take 1 Capsule by mouth. Active [place]-3 Fatty Acids (CVS OMEGA-3 GUMMY FISH/DHA) 113.5 [...] (1 - 2022-2 4 season) 2023 Influenza (Season Ended) 2024 DTaP/Tdap/Td (2 - Tdap) 06/12/2027 06/12/19 17, [...] age to complete this topic Care Teams Bilingual Medical Receptionist Relationship Specialty Start Date End Date Lyle Perry MD [address] [place] [address] PCP - General Family Practice 12/30/22
--- OUTSIDE RECORDS SUMMARY | 2023-09-21 17:05 | XMS_ITS | Continuity of Care Document ---
Author Name Unknown Organization [facility] Address [address] [place] [address] Care Team Providers Care Fluorescent Lighting Model Maker Name Role Phone Unavailable Primary Care Provider Unavailabl e Source Comments Patient records contain information from all sites at [facility]. For routine questions regarding patient records, call [phone] during business hours, M-F 8:00 AM - 5:00 PM Central Time. Record requests for emergency care only can be directed to [phone] at any time.[facility] Encounters Date Type Department Care Team Description 09/30/2021 8:00 AM CDT Comprehensive Visit Department of Neurology in [address] [address] Mer Chiang M.D., M.P.H. 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 Titi Odonnell, PShavonA.-Adria 12/22/2015 11:28 AM CDT - 12/22/2015 11:59 PM CDT Hospital Encounter HX [facility] En Farley M.D. Allergies Active [...] daily Active UNABLE TO FIND Med Name:Triple [place] Complex 2 tablets daily. Active prasterone, dhea, (DHEA) 25 mg tablet Take 25 mg by mouth daily. 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
--- OUTSIDE RECORDS SUMMARY | 2023-09-21 17:05 | XMS_ITS ---
Author Name Unknown Organization [facility] Address [address] [place] [address] Care Team Providers Care Grocery Caddy Name Role Phone Unavailable Unavailable Unavailable Surgery Details Not on file Complications Check Surgery Details section. Procedure Estimated Blood Loss Check Surgery Details section. Procedure Findings Check Surgery Details section. Procedure Specimens Taken Check Surgery Details section.
--- NOTE | 2023-09-21 17:06 | ED.GENADULT ---
HPI - General Adult General Date Seen: 09/21/23 Chief complaint: Urogenital Problems, Male Stated complaint: confusion, UTI, bladder infection Time Seen by Provider: 09/21/23 16:28 Source: patient, family, RN notes reviewed and old records reviewed Mode of arrival: ambulatory Limitations: no limitations History of Present Illness HPI narrative: Patient is a 72-year-old male who was seen in clinic yesterday with some lower abdominal pain, some dysuria. He apparently had a temperature in the 99's at clinic, had some chills at home but no documented fever. He was diagnosed with urinary tract infection as well as possible diverticulitis and a started on Flagyl and Bactrim. Today, his symptoms are little bit better but he seemed confused, he was not making a lot of sense to his when she was asking him questions at home. He does agree that he has been a little mentally foggy today. He has continued to have some nausea, no vomiting. Has had diarrhea, nonbloody. Has continued to have some chills although there are not certain that he has had a fever at home. Dysuria is resolved. He also had an echo yesterday as he had a TAVR a couple of months ago. He has a history of 3 vessel bypass a number of years ago and also has a history of appendectomy. Other medical history reviewed, he takes Plavix and aspirin. Allergies to fluoroquinolones which apparently caused depression. Also listed penicillin allergy. Does not smoke or drink. Related Data Home Medications Medication Instructions Recorded Confirmed ascorbic acid (vitamin C) 1,000 mg 1 g PO QDAY 04/27/22 09/20/23 tablet aspirin 81 mg capsule 81 mg PO QDAY 04/27/22 09/20/23 blm joint support PO DAILY 04/27/22 09/20/23 calcium citrate 250 mg PO BID 04/27/22 09/20/23 cholecalciferol (vitamin D3) 50 See Rx Instructions PO QDAY 04/27/22 09/20/23 mcg (2,000 unit) capsule coQ10 (ubiquinol) 100 mg capsule 200 mg PO QDAY 04/27/22 09/20/23 cyanocobalamin (vitamin B-12) 500 500 mcg PO QDAY 04/27/22 09/20/23 mcg lozenges omega 800 mg PO DAILY 04/27/22 09/20/23 prasterone (dhea) 50 mg tablet 100 mg PO QDAY 04/27/22 09/20/23 prostate support PO DAILY 04/27/22 09/20/23 pyridoxine (vitamin B6) 100 mg 50 mg PO QDAY 04/27/22 09/20/23 tablet triple boran bones 6 mg PO BID 04/27/22 09/20/23 vit e PO DAILY 04/27/22 09/20/23 vitamin K2 100 mcg capsule 100 mcg PO QDAY 04/27/22 09/20/23 zinc PO 04/27/22 09/20/23 clopidogrel 75 mg tablet 75 mg PO QDAY 11/18/22 09/20/23 metoprolol tartrate 50 mg tablet 50 mg PO BID 05/19/23 09/20/23 Previous Rx's Medication Instructions Recorded atorvastatin 40 mg tablet 40 mg PO QHS #90 tabs 05/19/23 famotidine 20 mg tablet 20 mg PO BID #180 tabs 05/19/23 testosterone 50 mg/5 gram (1 %) 1 tube transdermal QAM #90 ea 06/12/23 transdermal gel metronidazole 500 mg tablet 500 mg PO TID 7 days #21 tabs 09/20/23 sulfamethoxazole 800 1 tab PO BID 7 days #14 tabs 09/20/23 mg-trimethoprim 160 mg tablet (Bactrim DS) Allergies Allergy/AdvReac Type Severity Reaction Status Date / Time ciprofloxacin Allergy Intermediate Depression Verified 09/21/23 20:48 levofloxacin [From Levaquin] Allergy Unknown Depression Verified 09/21/23 20:48 Penicillins Allergy Unknown Verified 09/21/23 21:02 sulfamethoxazole AdvReac Verified 09/21/23 21:02 [From Bactrim] trimethoprim [From Bactrim] AdvReac Verified 09/21/23 21:02 Review of Systems Status of ROS: Reports: 10 or more systems reviewed and unremarkable except as noted in History and below [facility] Medical History (Updated 09/21/23 @ 21:25 by David Marquez MD) Pulmonary nodule ?R91.1 - Solitary pulmonary nodule (ICD-10) Drug intolerance ?Z78.9 - Other specified health status (ICD-10) History of transcatheter aortic valve replacement (TAVR) ?Z95.2 - Presence of prosthetic heart valve (ICD-10) Diverticulitis ?K57.92 - Diverticulitis of intestine, part unspecified, without perforation or abscess without bleeding (ICD-10) Abdominal pain ?R10.9 - Unspecified abdominal pain (ICD-10) COVID-19 ?U07.1 - COVID-19 (ICD-10) History of renal calculi ?Z87.442 - Personal history of urinary calculi (ICD-10) History of diverticulitis (2008) ?Z87.19 - Personal history of other diseases of the digestive system (ICD-10) Surgical History 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) ?Z95.1 - Presence of aortocoronary bypass graft (ICD-10) Status post laparoscopic appendectomy (09/27/18) ?Z90.49 - Acquired absence of other specified parts of digestive tract (ICD-10) History of tonsillectomy ?Z90.89 - Acquired absence of other organs (ICD-10) History of colonoscopy with polypectomy ?Z98.890 - Other specified postprocedural states (ICD-10) ?Z86.010 - Personal history of colonic polyps (ICD-10) History of cataract extraction (12/17/14) ?Z98.49 - Cataract extraction status, unspecified eye (ICD-10) History of carpal tunnel surgery of right wrist (01/17/19) ?Z98.890 - Other specified postprocedural states (ICD-10) Family History Father GI bleeding Mother High blood pressure Social History (Updated 09/21/23 @ 20:47 by David Marquez MD) Narrative: He lives with his , Fariha, in [place]. 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 Code status is full. He does not smoke. He rarely drinks alcohol. What is your current living situation?: I presently have a place to live Problems where you live: no known problems Problems where you live details: n/a In the past 12 months, utilities in danger of being shut off: no In past 12 months, lack of transportation kept you from medical appts, meetings, work, or getting things needed for daily living: no In the past 12 mos, have been you worried that your food would run out before you had money to buy more?: never true In the past 12 mos, the food you bought just didn't last and you didn't have money to buy more?: never true Smoking Status: Never smoker How often do you have a drink containing alcohol: 2-4 times a month How often do you have six or more drinks on one occasion: Never AUDIT-C Alcohol total score: 2 Non-prescribed substance use: denies use Caffeine: Yes (coffee) How often does anyone, including family, friends and others, physically hurt you: never How often does anyone, including family, friends and others, insult or talk down to you: never How often does anyone, including family, friends and others, threaten you with harm: never How often does anyone, including family, friends and others, scream or curse at you: never Little interest or pleasure in doing things: not at all Feeling down, depressed, or hopeless: not at all service: Yes ([employer]) Exam Narrative: Exam Narrative: Vital signs as noted above. In general, an alert, nontoxic elderly male. He is conversant and pleasant. Head: Normocephalic, atraumatic. Eyes: Pupils are equal reactive. Extraocular movements are full. Conjunctivae are normal. ENT: Mucous membranes are slightly dry. Neck: Supple without lymphadenopathy. Heart: Regular rate and rhythm. No murmur or rub. Lungs: Clear bilaterally. No increased work of breathing, crackles or wheezes. No CVA tenderness. Abdomen: Soft and nontender. No organomegaly. Extremities: Well perfused. No edema. No calf tenderness. Pulses intact. Neurologic: Patient is alert and oriented to person and place. He lists the year as 2024 and had to think about it for quite a while. Speech is fluent. Face is symmetric. Moves all extremities equally. Affect: Normal. Skin: Warm and dry. Well perfused. Const: Vital Signs, click to edit/add: Vital Signs - 24 hr 09/21/23 16:17 09/21/23 19:27 09/21/23 20:30 Temperature 98.4 F 98.9 F 99.2 F Pulse Rate [Pulse Oximeter] Pulse Rate [Right Pulse Oximeter] 98 85 87 Respiratory Rate 18 20 Blood Pressure [Ri ght Arm] Blood Pressure [Ri ght Upper Arm] 91/53 L 87/58 L 101/63 Pulse Oximetry 96 96 96 Oxygen Delivery Me thod Room Air Room Air Room Air 09/21/23 21:49 Temperature 99.8 F H Pulse Rate [Pulse Oximeter] 88 Pulse Rate [Right Pulse Oximeter] Respiratory Rate 18 Blood Pressure [Ri ght Arm] 100/63 Blood Pressure [Ri ght Upper Arm] Pulse Oximetry 97 Oxygen Delivery Me thod Room Air Documenting provider has reviewed patient's vital signs: yes Course Course ED Course: Plan will be to place an IV, give a L normal saline, blood pressure mildly low at 90 1/53 and pulse is 98. Lactate and procalcitonin ordered to evaluate for possible sepsis related to UTI or possibly diverticulitis, labs from yesterday were reviewed, did UA showed 10-25 red blood cells and 5-10 white blood cells with positive nitrites yesterday. Culture is pending. His white blood cell count was mildly elevated at 12 and half yesterday. Recheck CRP, basic metabolic panel to evaluate for possible renal insufficiency related to Bactrim, liver panel, CRP, recheck UA. Labs notable for white blood cell count of 16, hemoglobin 14.8. Lactate was 1.8, procalcitonin mildly elevated at 0.7. UA today shows 10-25 white blood cells, 0-2 red cells, culture from yesterday was growing out Gram-negative rods. Metabolic panel notable for CO2 17, sodium of 131, normal chloride. BUN of 39, creatinine 2.2, 1.8 last time it was checked although his baseline appears to be closer to 1.2. LFTs notable for a total bilirubin of 1.6 otherwise normal. CRP was elevated at 22.6. Patient had a total of 30 mL/kilos. His blood pressure was in the range of 90 systolic for most of his time here, map was around 70. However at the time of leaving the emergency department his blood pressure had improved to [address] scan by my review showed diverticulosis although I did not see inflammatory changes suggestive of diverticulitis. Final radiology read as follows: FINDINGS: Limited evaluation of the intra-abdominal solid organs without IV contrast. Lower chest: Bibasilar linear opacities likely atelectasis. Liver: Normal in size and attenuation. No suspicious masses. Gallbladder and bile ducts: Cholelithiasis without CT evidence of cholecystitis. Pancreas: Unremarkable. No mass or inflammation. Spleen: Normal in size. No masses. Adrenal glands: Normal in size. No nodules. Kidneys: Normal in size. No suspicious masses, stones, or hydronephrosis. GI tract: Unremarkable. Normal in caliber. No sign of mass or inflammation. Colonic diverticulosis without evidence of diverticulitis. Probable prior appendectomy. No bowel obstruction. Vasculature: Abdominal aorta is normal in caliber. Lymph nodes: No lymphadenopathy. Peritoneum/Abdominal Wall: Unremarkable. No sign of mass or infiltration. No free air or significant free fluid. Pelvis: Circumferential bladder wall thickening, may be related to cystitis. Correlate with UA. Coarse calcifications in the prostate. Bones: Unremarkable for age. IMPRESSION: 1. circumferential bladder wall thickening may be related to cystitis. Correlate with UA. 2. Cholelithiasis without CT evidence of cholecystitis. 3. Colonic diverticulosis without evidence of acute diverticulitis. Given urine culture from yesterday he is likely presenting with sepsis related to urinary tract infection, he had Rocephin here, vancomycin was also ordered by Dr. Marquez. He will be admitted for further care. Vital Signs Vital signs: Initial Vital Signs Temperature 98.4 F 09/21/23 16:17 Temperature Source Temporal Artery Scan 09/21/23 16:17 Pulse Rate 98 09/21/23 16:17 Blood Pressure 91/53 L 09/21/23 16:17 Blood Pressure Mean 65 L 09/21/23 16:17 Blood Pressure Position Sitting 09/21/23 16:17 Pulse Oximetry 96 09/21/23 16:17 Oxygen Delivery Method Room Air 09/21/23 16:17 Vital Signs Temperature 98.4 F 09/21/23 16:17 Pulse Rate 98 09/21/23 16:17 Blood Pressure 91/53 L 09/21/23 16:17 Pulse Oximetry 96 09/21/23 16:17 Oxygen Delivery Method Room Air 09/21/23 16:17 Temperature 99.8 F H 09/21/23 21:49 Pulse Rate 88 09/21/23 21:49 Respiratory Rate 18 09/21/23 21:49 Blood Pressure 100/63 09/21/23 21:49 Pulse Oximetry 97 09/21/23 21:49 Oxygen Delivery Method Room Air 09/21/23 21:49 Medications Administered Medications: Generic Name Dose Route Start Last Admin Trade Name Freq PRN Reason Stop Dose Admin Lactated Ringer's 1,000 mls @ 125 mls/hr 09/21/23 20:20 09/21/23 21:33 Lactated Ringers 1000 Ml IV 125 mls/hr .Q8H TIMBO Administration Discontinued Medications Generic Name Dose Route Start Last Admin Trade Name Jannie PRN Reason Stop Dose Admin Sodium Chloride 1,000 mls @ 1,000 mls/hr 09/21/23 16:45 09/21/23 18:55 0.9 % Sodium Chloride 1000 Ml IV 09/21/23 17:44 Infused .Q1H TIMBO Infusion Sodium Chloride 1,000 mls @ 1,000 mls/hr 09/21/23 18:45 09/21/23 19:31 0.9 % Sodium Chloride 1000 Ml IV 09/21/23 19:44 Infused .Q1H TIMBO Infusion Ceftriaxone Sodium 1 gm/ 100 mls @ 200 mls/hr 09/21/23 19:16 09/21/23 20:09 Sodium Chloride IVPB 09/21/23 19:17 Infused ONCE ONE Infusion Sodium Chloride 500 mls @ 500 mls/hr 09/21/23 19:16 09/21/23 19:30 0.9 % Sodium Chloride 500 Ml IV 09/21/23 20:15 500 mls/hr .Q1H ONE Administration Piperacillin Sod/Tazobactam 100 mls @ 200 mls/hr 09/21/23 20:17 09/21/23 22:36 Sod 3.375 gm/ Sodium Chloride IVPB 09/21/23 20:18 200 mls/hr ONCE ONE Administration Ondansetron HCl 4 mg 09/21/23 16:43 09/21/23 17:30 Ondansetron 2 Mg/Ml Inj IVP 09/21/23 16:44 4 mg ONCE ONE Administration Medical Decision Making Lab Data Labs: Lab Results 09/21/23 09/21/23 09/21/23 Range/Units 15:59 16:39 20:26 WBC 16.60 H (4.50-11.00) K/uL RBC 5.20 (4.30-5.90) m/uL Hgb 14.8 (13.5-17.5) gm/dL Hct 44.4 (37.0-53.0) % MCV 85 (80-100) fL MCH 29 (26-34) pg MCHC 33 (32-36) gm/dL RDW Coeff of Lida 14.3 (11.5-15.5) % Plt Count 171 (140-440) K/uL Neut % (Auto) 91.9 H (42.0-72.0) % Lymph % (Auto) 2.8 L (20-44) % [place] % (Auto) 4.6 (0.0-11.0) % Eos % (Auto) 0.3 (0.0-7.0) % Baso % (Auto) 0.1 (0.0-3.0) % Neut # (Auto) 15.30 H (1.7-7.0) K/uL Lymph # (Auto) 0.50 L (0.90-2.90) K/uL [place] # (Auto) 0.80 (0.00-0.90) K/UL Eos # (Auto) 0.00 (0.00-0.50) K/uL Baso # (Auto) 0.00 (0.00-0.30) K/uL Abs Immat Gran (auto) 0.00 (0.00-0.30) K/uL Imm/Tot Granulo (auto) 0.3 % Sodium 131 L (135-149) mmol/L Potassium 4.1 (3.6-5.1) mmol/L Chloride 102 (96-114) mmol/L Carbon Dioxide 17 L (20-32) mmol/L Anion Gap 12 (7-15) mEq/L BUN 39 H (7-30) mg/dL Creatinine 2.2 H (0.5-1.5) mg/dL Estimated Creat Clear 32.82 Estimated GFR 31 ml/min Glucose 133 H (60-115) mg/dL Lactate 1.8 (0.5-1.9) mmol/L Calcium 8.6 (8.4-10.6) mg/dL Magnesium Total Bilirubin 1.6 H (0.1-1.5) mg/dL Direct Bilirubin 0.1 (0.0-0.5) mg/dL AST 28 (12-35) U/L ALT 30 (4-50) U/L Alkaline Phosphatase 63 (40-150) U/L C-Reactive Protein 22.6 H (0.5-1.0) mg/dL Total Protein 7.3 (6.0-8.3) g/dL Albumin 4.1 (3.3-5.0) g/dL Procalcitonin 0.70 H (<0.50) ng/mL Urine Color Yellow (Yellow) Urine Appearance Slightly Cloudy A (Clear) Urine pH 5.5 (5.0-8.5) Ur Specific [place] 1.010 (1.000-1.030) Urine Protein Trace A (Negative) Urine Glucose (UA) Negative (Negative) Urine Ketones Negative (Negative) Urine Blood Trace-intact A (Negative) Urine Nitrite Negative (Negative) Urine Bilirubin Negative (Negative) Urine Urobilinogen 0.2 (0.2-1.0) Ur Leukocyte Esterase 1+ A (Negative) Urine RBC 0-2 (0-2) Urine WBC 10-25 A (0-5) Ur Squamous Epith Cells None (None-Few) Urine Bacteria Few A (None) POC Troponin I 0.03 (0.01-0.04) ng/ml 09/21/23 Range/Units 21:25 WBC (4.50-11.00) K/uL RBC (4.30-5.90) m/uL Hgb (13.5-17.5) gm/dL Hct (37.0-53.0) % MCV (80-100) fL MCH (26-34) pg MCHC (32-36) gm/dL RDW Coeff of Lida (11.5-15.5) % Plt Count (140-440) K/uL Neut % (Auto) (42.0-72.0) % Lymph % (Auto) (20-44) % [place] % (Auto) (0.0-11.0) % Eos % (Auto) (0.0-7.0) % Baso % (Auto) (0.0-3.0) % Neut # (Auto) (1.7-7.0) K/uL Lymph # (Auto) (0.90-2.90) K/uL [place] # (Auto) (0.00-0.90) K/UL Eos # (Auto) (0.00-0.50) K/uL Baso # (Auto) (0.00-0.30) K/uL Abs Immat Gran (auto) (0.00-0.30) K/uL Imm/Tot Granulo (auto) % Sodium (135-149) mmol/L Potassium (3.6-5.1) mmol/L Chloride (96-114) mmol/L Carbon Dioxide (20-32) mmol/L Anion Gap (7-15) mEq/L BUN (7-30) mg/dL Creatinine (0.5-1.5) mg/dL Estimated Creat Clear Estimated GFR ml/min Glucose (60-115) mg/dL Lactate 1.7 (0.5-1.9) mmol/L Calcium (8.4-10.6) mg/dL Magnesium Cancelled Total Bilirubin (0.1-1.5) mg/dL Direct Bilirubin (0.0-0.5) mg/dL AST (12-35) U/L ALT (4-50) U/L Alkaline Phosphatase (40-150) U/L C-Reactive Protein (0.5-1.0) mg/dL Total Protein (6.0-8.3) g/dL Albumin (3.3-5.0) g/dL Procalcitonin (<0.50) ng/mL Urine Color (Yellow) Urine Appearance (Clear) Urine pH (5.0-8.5) Ur Specific [place] (1.000-1.030) Urine Protein (Negative) Urine Glucose (UA) (Negative) Urine Ketones (Negative) Urine Blood (Negative) Urine Nitrite (Negative) Urine Bilirubin (Negative) Urine Urobilinogen (0.2-1.0) Ur Leukocyte Esterase (Negative) Urine RBC (0-2) Urine WBC (0-5) Ur Squamous Epith Cells (None-Few) Urine Bacteria (None) POC Troponin I (0.01-0.04) ng/ml Discharge Plan Discharge Clinical Impression: UTI (urinary tract infection), Sepsis Patient Disposition: Admitted As Inpatient Condition: Improved
[2023-09-21 17:08] LABS: Lactate Sepsis w/Reflex* 1.8 mmol/L (0.5-1.9)
[2023-09-21 17:17] LABS: Basophils Percent Auto 0.1 % (0.0-3.0); Eosinophils Percent Auto 0.3 % (0.0-7.0); Hematocrit 44.4 % (37.0-53.0); Hemoglobin* 14.8 gm/dL (13.5-17.5); Immature Granulocytes Pct Auto 0.3 %; Lymphocytes Percent Auto 2.8 % (20-44); Mean Corpuscular HGB Conc 33 gm/dL (32-36); Mean Corpuscular Hemoglobin 29 pg (26-34); Mean Corpuscular Volume 85 fL (80-100); Monocytes Percent Auto 4.6 % (0.0-11.0); Neutrophils Percent Auto 91.9 % (42.0-72.0); Platelet Count* 171 K/uL (140-440); RDW Coefficient of Variation % 14.3 % (11.5-15.5)
[2023-09-21 17:21] LABS: Troponin, Point-of-Care* 0.03 ng/ml (0.01-0.04)
[2023-09-21 17:30] LABS: Slide Review Reflex No
[2023-09-21] MEDS: ONDANSETRON 2 MG/ML inj 4 MG IVP (17:30)
[2023-09-21 17:41] LABS: Chloride* 102 mmol/L (96-114); Potassium* 4.1 mmol/L (3.6-5.1)
[2023-09-21 17:42] LABS: Albumin* 4.1 g/dL (3.3-5.0)
[2023-09-21 17:44] LABS: Creatinine* 2.2 mg/dL (0.5-1.5); Est. Creatinine Clearance* 32.82; Estimated Glomerular Filt Rate 31 ml/min
[2023-09-21 17:45] LABS: Aspartate Amino Transferase* 28 U/L (12-35); Bilirubin Direct* 0.1 mg/dL (0.0-0.5); Bilirubin Total* 1.6 mg/dL (0.1-1.5); Blood Urea Nitrogen* 39 mg/dL (7-30); Calcium* 8.6 mg/dL (8.4-10.6); Carbon Dioxide* 17 mmol/L (20-32); Glucose* 133 mg/dL (60-115); Total Protein* 7.3 g/dL (6.0-8.3)
[2023-09-21 17:46] LABS: Alanine Aminotransferase* 30 U/L (4-50); Alkaline Phosphatase* 63 U/L (40-150)
[2023-09-21 17:52] LABS: Anion Gap 12 mEq/L (7-15); Sodium* 131 mmol/L (135-149)
[2023-09-21 18:16] LABS: C Reactive Protein* 22.6 mg/dL (0.5-1.0)
[2023-09-21 19:27] VITALS: BP 87/58; PULSE 85; RESP 18; TEMP 37.2; O2SAT 96
[2023-09-21] MEDS: cefTRIAXone 1 GM in 0.9 % SODIUM CHLORIDE Mini-bag 100 ML IVPB (19:30)
[2023-09-21] MEDS: 0.9 % SODIUM CHLORIDE 500 ML 500 ML IV (19:30)
--- NOTE | 2023-09-21 20:12 | CT_ITS ---
Patient: DESTINY YI Facility:?[facility] Patient ID:?[id number] Site Patient ID:?[id number]. Site :?[id number] Study:?CT-Chest PE PROTOCOL 95CC ISOVUE 370-09/21/2023 8:45:11 PM Ordering Physician:?DR. CURIEL Final Report: INDICATION: Sepsis. TECHNIQUE: CT chest PE was acquired with 95 cc Isovue 370 IV contrast. COMPARISON: CT abdomen and pelvis from the same day. FINDINGS: Heart and vasculature: Contrast opacification of the pulmonary arterial tree is adequate. No sign of pulmonary embolism. Prior median sternotomy for coronary artery bypass graft. Aortic valve replacement. Heart size is normal. Thoracic aorta and pulmonary artery are normal in caliber. Heavy coronary artery calcification. No pericardial effusion. Lungs and pleura: 8 mm pulmonary nodule right lower lobe superior segment (5/72). Mild dependent lower lobe atelectasis and/or scarring bilaterally. No pleural effusions, pleural thickening, or pneumothorax. Lymph nodes/mediastinum: No mediastinal, hilar, or axillary adenopathy. Chest wall: No masses. Upper abdomen: Cholelithiasis. Diverticulosis. Bones: Unremarkable for age. IMPRESSION: : 1. No pulmonary embolism. No acute findings within the chest. 2. 8 mm pulmonary nodule within the right lower lobe. Recommend follow-up chest CT in 6-12 months to evaluate for interval change. Please note that all CT scans at this facility use dose modulation, iterative reconstruction, and/or weight-based dosing when appropriate to reduce radiation dose to as low as reasonably achievable. Dictated by Erik Hopkins MD @ 09/21/2023 8:59:00 PM Signed by:?Erik Hopkins MD @09/21/2023 8:59:00 PM (Electronic Signature)
--- NOTE | 2023-09-21 20:25 | PC.NURSE ---
Bed request put in, pt to radiology then back to ED until room is ready. Just gave med/surg heads up.
[2023-09-21 20:30] VITALS: BP 101/63; PULSE 87; RESP 20; TEMP 37.3; O2SAT 96
[2023-09-21 20:32] LABS: Appearance Urine Slightly Cloudy (Clear); Bilirubin Urine Negative (Negative); Blood Urine Trace-intact (Negative); Color Urine Yellow (Yellow); Glucose Urine Negative (Negative); Ketones Urine Negative (Negative); Leukocyte Esterase Urine 1+ (Negative); Nitrite Urine Negative (Negative); Protein Urine Trace (Negative); Urobilinogen Urine 0.2 (0.2-1.0); pH Urine 5.5 (5.0-8.5)
--- NOTE | 2023-09-21 20:38 | PM.IMHP1 ---
Hospitalist- H&P: HPI History of Present Illness Date Seen: 09/21/23 Chief complaint: confusion, UTI, bladder infection Narrative: Ryan Bishop is a 72 year old male with coronary artery disease and recent TAVR presents with a 2 day history of fatigue, malaise abdominal pain and dysuria and a 1 day history of fever and diarrhea. Today is noted that he seemed confused. One month ago he underwent uncomplicated TAVR at [facility]. He had good recovery from that and was doing well. He started to feel a little tired about 2 weeks ago. Because of that they repeated his echocardiogram yesterday and this showed a normal LV ejection fraction of 66%, normal right ventricular function, normal functioning TAVR. He was seen in clinic yesterday where he was clinically diagnosed with diverticulitis and started on metronidazole and Bactrim DS. Shortly after that he did develop some diarrhea. He notes yesterday and today he has had a fever and felt more ill. He has also had dysuria and urinary urgency. Been eating poorly reports minimal appetite. He has not had any vomiting. He reports his abdominal pain is better than it was 2 days ago. In our emergency department he was found to be hypotensive. He was treated with 2.5 L of normal saline with modest improvement in his blood pressure. He receives ceftriaxone to treat a UTI. He had a CT abdomen and pelvis without contrast showing evidence of cystitis without other obvious site of infection. He had an increase in his creatinine from a baseline of 1.2-1.5 now up to 2.2. He has a history of intolerance of quinolones which cause him to feel depressed. He has a history of intolerance to penicillin which he received as a teenager and caused him to pass out. He has tolerated cephalosporins in the past and today. Review of Systems Narrative: Patient reports generally feeling well except as noted above. No chest pain or dyspnea. Abdominal pain is better. Nausea and anorexia without vomiting. Diarrhea yesterday is better today no blood in his stool. Urinary urgency and frequency and dysuria. No history of bleeding or clotting. No swelling of his ankles. [facility] Medical History (Updated 09/21/23 @ 20:54 by David Marquez MD) Drug intolerance ?Z78.9 - Other specified health status (ICD-10) History of transcatheter aortic valve replacement (TAVR) ?Z95.2 - Presence of prosthetic heart valve (ICD-10) Diverticulitis ?K57.92 - Diverticulitis of intestine, part unspecified, without perforation or abscess without bleeding (ICD-10) Abdominal pain ?R10.9 - Unspecified abdominal pain (ICD-10) COVID-19 ?U07.1 - COVID-19 (ICD-10) History of renal calculi ?Z87.442 - Personal history of urinary calculi (ICD-10) History of diverticulitis (2008) ?Z87.19 - Personal history of other diseases of the digestive system (ICD-10) Surgical History 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) ?Z95.1 - Presence of aortocoronary bypass graft (ICD-10) Status post laparoscopic appendectomy (09/27/18) ?Z90.49 - Acquired absence of other specified parts of digestive tract (ICD-10) History of tonsillectomy ?Z90.89 - Acquired absence of other organs (ICD-10) History of colonoscopy with polypectomy ?Z98.890 - Other specified postprocedural states (ICD-10) ?Z86.010 - Personal history of colonic polyps (ICD-10) History of cataract extraction (12/17/14) ?Z98.49 - Cataract extraction status, unspecified eye (ICD-10) History of carpal tunnel surgery of right wrist (01/17/19) ?Z98.890 - Other specified postprocedural states (ICD-10) Family History Father GI bleeding Mother High blood pressure Social History (Updated 09/21/23 @ 20:47 by David Marquez MD) Narrative: He lives with his , Fariha, in [place]. 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 Code status is full. He does not smoke. He rarely drinks alcohol. Smoking Status: Never smoker How often do you have a drink containing alcohol: never How often do you have six or more drinks on one occasion: Never AUDIT-C Alcohol total score: 0 Non-prescribed substance use: denies use Little interest or pleasure in doing things: not at all Feeling down, depressed, or hopeless: not at all service: No Meds Home Medications and Allergies Home Medications Medication Instructions Recorded Confirmed Type ascorbic acid (vitamin C) 1,000 mg 1 g PO QDAY 04/27/22 09/20/23 History tablet aspirin 81 mg capsule 81 mg PO QDAY 04/27/22 09/20/23 History blm joint support PO DAILY 04/27/22 09/20/23 History calcium citrate 250 mg PO BID 04/27/22 09/20/23 History cholecalciferol (vitamin D3) 50 See Rx Instructions PO QDAY 04/27/22 09/20/23 History mcg (2,000 unit) capsule coQ10 (ubiquinol) 100 mg capsule 200 mg PO QDAY 04/27/22 09/20/23 History cyanocobalamin (vitamin B-12) 500 500 mcg PO QDAY 04/27/22 09/20/23 History mcg lozenges omega 800 mg PO DAILY 04/27/22 09/20/23 History prasterone (dhea) 50 mg tablet 100 mg PO QDAY 04/27/22 09/20/23 History prostate support PO DAILY 04/27/22 09/20/23 History pyridoxine (vitamin B6) 100 mg 50 mg PO QDAY 04/27/22 09/20/23 History tablet triple boran bones 6 mg PO BID 04/27/22 09/20/23 History vit e PO DAILY 04/27/22 09/20/23 History vitamin K2 100 mcg capsule 100 mcg PO QDAY 04/27/22 09/20/23 History zinc PO 04/27/22 09/20/23 History clopidogrel 75 mg tablet 75 mg PO QDAY 11/18/22 09/20/23 History metoprolol tartrate 50 mg tablet 50 mg PO BID 05/19/23 09/20/23 History Allergies Allergy/AdvReac Type Severity Reaction Status Date / Time ciprofloxacin Allergy Intermediate Depression Verified 09/21/23 20:48 levofloxacin [From Levaquin] Allergy Unknown Depression Verified 09/21/23 20:48 Penicillins Allergy Unknown Verified 09/21/23 21:02 sulfamethoxazole AdvReac Verified 09/21/23 21:02 [From Bactrim] trimethoprim [From Bactrim] AdvReac Verified 09/21/23 21:02 Exam Narrative: Exam Narrative: He is alert and oriented to his circumstances. He gives his own history. No obvious confusion. His face appears flushed. Skin is warm to touch. Oropharynx is normal. Eyes are normal. No facial asymmetry. Neck is supple without mass or adenopathy. Respirations are clear to auscultation. Cardiovascular: S1, S2, regular rate and rhythm. 1/6 systolic murmur. No gallop or rub. Abdomen: Bowel sounds active. Abdomen is soft with minimal epigastric tenderness. No mass. No peritonitis. External genitalia normal. Extremities with fairly good perfusion. Intact peripheral pulses. No edema. He moves all 4 extremities well. Skin is without rash except for the erythema primarily on his face Const: Vital Signs, click to edit/add: Vital Signs - 24 hr 09/21/23 16:17 09/21/23 19:27 09/21/23 20:30 Temperature 98.4 F 98.9 F 99.2 F Pulse Rate [Right Pulse Oximeter] 98 85 87 Respiratory Rate 18 20 Blood Pressure [Ri ght Upper Arm] 91/53 L 87/58 L 101/63 Pulse Oximetry 96 96 96 Oxygen Delivery Me thod Room Air Room Air Room Air Documenting provider has reviewed patient's vital signs: yes Hospitalist - H&P: Result Labs Labs: Short CBC 09/21/23 Range/Units 15:59 WBC 16.60 H (4.50-11.00) K/uL Hgb 14.8 (13.5-17.5) gm/dL Hct 44.4 (37.0-53.0) % Plt Count 171 (140-440) K/uL BMP 09/21/23 15:59 Sodium 131 L Potassium 4.1 Chloride 102 Carbon Dioxide 17 L BUN 39 H Creatinine 2.2 H Glucose 133 H Calcium 8.6 Liver Function 09/21/23 Range/Units 15:59 Total Bilirubin 1.6 H (0.1-1.5) mg/dL Direct Bilirubin 0.1 (0.0-0.5) mg/dL AST 28 (12-35) U/L ALT 30 (4-50) U/L Alkaline Phosphatase 63 (40-150) U/L Albumin 4.1 (3.3-5.0) g/dL Imaging CT scan - abdomen: Radiologist's impression: Final Report: INDICATION: LOWER ABD PAIN, FEVER. TECHNIQUE: CT abdomen and pelvis without contrast. COMPARISON: None. FINDINGS: Limited evaluation of the intra-abdominal solid organs without IV contrast. Lower chest: Bibasilar linear opacities likely atelectasis. Liver: Normal in size and attenuation. No suspicious masses. Gallbladder and bile ducts: Cholelithiasis without CT evidence of cholecystitis. Pancreas: Unremarkable. No mass or inflammation. Spleen: Normal in size. No masses. Adrenal glands: Normal in size. No nodules. Kidneys: Normal in size. No suspicious masses, stones, or hydronephrosis. GI tract: Unremarkable. Normal in caliber. No sign of mass or inflammation. Colonic diverticulosis without evidence of diverticulitis. Probable prior appendectomy. No bowel obstruction. Vasculature: Abdominal aorta is normal in caliber. Lymph nodes: No lymphadenopathy. Peritoneum/Abdominal Wall: Unremarkable. No sign of mass or infiltration. No free air or significant free fluid. Pelvis: Circumferential bladder wall thickening, may be related to cystitis. Correlate with UA. Coarse calcifications in the prostate. Bones: Unremarkable for age. IMPRESSION: 1. circumferential bladder wall thickening may be related to cystitis. Correlate with UA. 2. Cholelithiasis without CT evidence of cholecystitis. 3. Colonic diverticulosis without evidence of acute diverticulitis. CT scan - chest: Radiologist's impression: Final Report: INDICATION: Sepsis. TECHNIQUE: CT chest PE was acquired with 95 cc Isovue 370 IV contrast. COMPARISON: CT abdomen and pelvis from the same day. FINDINGS: Heart and vasculature: Contrast opacification of the pulmonary arterial tree is adequate. No sign of pulmonary embolism. Prior median sternotomy for coronary artery bypass graft. Aortic valve replacement. Heart size is normal. Thoracic aorta and pulmonary artery are normal in caliber. Heavy coronary artery calcification. No pericardial effusion. Lungs and pleura: 8 mm pulmonary nodule right lower lobe superior segment (5/72). Mild dependent lower lobe atelectasis and/or scarring bilaterally. No pleural effusions, pleural thickening, or pneumothorax. Lymph nodes/mediastinum: No mediastinal, hilar, or axillary adenopathy. Chest wall: No masses. Upper abdomen: Cholelithiasis. Diverticulosis. Bones: Unremarkable for age. IMPRESSION: : 1. No pulmonary embolism. No acute findings within the chest. 2. 8 mm pulmonary nodule within the right lower lobe. Recommend follow-up chest CT in 6-12 months to evaluate for interval change. Assessment and Plan Assessment and plan (1) Sepsis: Problem comment: Fever, hypotension, elevated white blood count and CRP, metabolic acidosis, acute kidney injury, metabolic encephalopathy Status: Acute (2) Urinary tract infection: Problem comment: Urine culture growing Gram-negative rods. CT showing bladder inflammation. Status: Acute (3) Acute kidney injury: Problem comment: Due to acute illness and Bactrim DS Status: Acute (4) Aortic stenosis: Problem comment: s/p TAVR 2023. Clinically and by based on echo appears to be working well Status: Acute (5) Abdominal pain: Problem comment: Improving, probably due to UTI. Continue to monitor Status: Acute (6) Drug intolerance: Problem comment: Quinolones cause depression symptoms. Remote history of syncope after penicillin. Acute kidney injury after Bactrim DS. Status: Acute (7) Metabolic encephalopathy: Problem comment: Due to acute illness/sepsis. further assessment if getting worse or not clearing with infection improving Status: Acute Plan Patient admitted to the hospital, CCU for monitoring and management of sepsis, UTI, encephalopathy, acute kidney injury. Total Time Spent Total Time Spent: Total time spent today is 90 minutes in critical care evaluation management
[2023-09-21 21:01] LABS: RBC Urine 0-2 (0-2)
[2023-09-21 21:02] LABS: Bacteria Urine Few
[2023-09-21] MEDS: LACTATED RINGERS 1000 ML 1,000 ML 125 ML IV (21:33)
--- OUTSIDE RECORDS SUMMARY | 2023-09-21 21:33 | XMS_ITS | Clinical Summary ---
Author Name Unknown Organization [facility] Address [address] [place] [address] Care Team Providers Care Coal Briquette Machine Operator Name Role Phone Lyle Perry MD Primary Care Provider [phone] Source Comments You are receiving this document as you are listed as the primary care provider,follow-up provider, or the patient has been referred to you for consultation.This is in compliance with the Medicare and[facility] Hospital[facility] EHR Incentive Program,which states Providers who transition their patient to another setting of careor provider of care or refers their patient to another provider of care shouldprovide summary care record for each transition of care or referral. [facility] Allerg[facility] Active Allergy Reactions Criticality Noted Date [...] TABS Take 1 Capsule by mouth. Active [place]-3 Fatty Acids ([employer] OME[employer]-3 GUMMY FISH/DHA) 113.5 [...] age to complete this topic Care Teams Coal Briquette Machine Operator Relationship Specialty Start Date End Date Lyle Perry MD [address] [place] [address] PCP - General Family Practice 12/30/22
--- OUTSIDE RECORDS SUMMARY | 2023-09-21 21:33 | XMS_ITS | Referral Summary ---
Author Name Unknown Organization [facility] Address [address] [place] [address] Care Team Providers Care Mail Carrier And Clerk Name Role Phone Unavailable Primary Care Provider Unavailabl e Source Comments Patient records contain information from all sites at [facility]. For routine questions regarding patient records, call [phone] during business hours, M-F 8:00 AM - 5:00 PM Central Time. Record requests for emergency care only can be directed to [phone] at any time.[facility] Allergies Active Allergy Reactions Criticality Noted [...] daily Active UNABLE TO FIND Med Name:Triple [place] Complex 2 tablets daily. Active prasterone, dhea, [...]
--- OUTSIDE RECORDS SUMMARY | 2023-09-21 21:33 | XMS_ITS ---
Author Name Unknown Organization [facility] Address [address] [place] [address] Care Team Providers Care Silk Screen Operator Name Role Phone Unavailable Unavailable Unavailable Surgery Details Not on file Complications Check Surgery Details section. Procedure Estimated Blood Loss Check Surgery Details section. Procedure Findings Check Surgery Details section. Procedure Specimens Taken Check Surgery Details section.
--- OUTSIDE RECORDS SUMMARY | 2023-09-21 21:33 | XMS_ITS | Continuity of Care Document ---
Author Name Unknown Organization [facility] Address [address] [place] [address] Care Team Providers Care Nurse Technician Name Role Phone Unavailable Primary Care Provider Unavailabl e Source Comments Patient records contain information from all sites at [facility]. For routine questions regarding patient records, call [phone] during business hours, M-F 8:00 AM - 5:00 PM Central Time. Record requests for emergency care only can be directed to [phone] at any time.[facility] Encounters Date Type Department Care Team Description 09/30/2021 8:00 AM CDT Comprehensive Visit Department of Neurology in [address] [address] Mer Chiang M.D., M.P.H. Transient Ischemic Attack (Primary Dx); Headache Stabbing Idiopathic 02/11/2017 10:35 AM CDT - 02/11/2017 11:59 PM CDT Hospital Encounter [facility] Titi Odonnell, PShavonA.-Adria 12/22/2015 11:28 AM CDT - 12/22/2015 11:59 PM CDT Hospital Encounter [facility]X [facility] En Farley M.D. [...] daily Active UNABLE TO FIND Med Name:Triple [place] Complex 2 tablets daily. Active prasterone, dhea, [...]
[2023-09-21 21:48] VITALS: O2SAT 94
[2023-09-21 21:49] VITALS: BP 100/63; PULSE 88; RESP 18; TEMP 37.7; O2SAT 97; BMI 28.7
[2023-09-21 21:52] LABS: Lactate* 1.7 mmol/L (0.5-1.9)
[2023-09-21] MEDS: ACETAMINOPHEN 325 MG TABLET 650 MG PO (22:05)
--- OUTSIDE RECORDS SUMMARY | 2023-09-21 22:17 | XMS_ITS | Clinical Summary ---
Author Name Unknown Organization [facility] Address [address] [place] [address] Care Team Providers Care Md Urologist Name Role Phone Lyle Perry MD Primary Care Provider [phone] Source Comments You are receiving this document as you are listed as the primary care provider,follow-up provider, or the patient has been referred to you for consultation.This is in compliance with the Medicare and[facility] Hospitalcaid EHR Incentive Program,which states Providers who transition their patient to another setting of careor provider of care or refers their patient to another provider of care shouldprovide summary care record for each transition of care or referral. [facility] Allergies Active Allergy Reactions Criticality Noted Date [...] TABS Take 1 Capsule by mouth. Active [place]-3 Fatty Acids ([employer] OMEGA-3 GUMMY FISH/DHA) 113.5 [...] age to complete this topic Care Teams Md Urologist Relationship Specialty Start Date End Date Lyle Perry MD [address] [place] [address] PCP - General Family Practice 12/30/22
--- OUTSIDE RECORDS SUMMARY | 2023-09-21 22:17 | XMS_ITS | Referral Summary ---
Author Name Unknown Organization [facility] Address [address] [place] [address] Care Team Providers Care Insurance Marketing Specialist Name Role Phone Unavailable Primary Care Provider Unavailabl e Source Comments Patient records contain information from all sites at [facility]. For routine questions regarding patient records, call [phone] during business hours, M-F 8:00 AM - 5:00 PM Central Time. Record requests for emergency care only can be directed to [phone] at any time.[facility] Allergies Active [...] daily Active UNABLE TO FIND Med Name:Triple [place] Complex 2 tablets daily. Active prasterone, dhea, [...]
--- OUTSIDE RECORDS SUMMARY | 2023-09-21 22:17 | XMS_ITS ---
Author Name Unknown Organization [facility] Address [address] [place] [address] Care Team Providers Care Fabrication Engineer Name Role Phone Unavailable Unavailable Unavailable Surgery Details Not on file Complications Check Surgery Details section. Procedure Estimated Blood Loss Check Surgery Details section. Procedure Findings Check Surgery Details section. Procedure Specimens Taken Check Surgery Details section.
--- OUTSIDE RECORDS SUMMARY | 2023-09-21 22:17 | XMS_ITS | Continuity of Care Document ---
Author Name Unknown Organization [facility] Address [address] [place] [address] Care Team Providers Care Instructor Product Inspection Name Role Phone Unavailable Primary Care Provider Unavailabl e Source Comments Patient records contain information from all sites at [facility]. For routine questions regarding patient records, call [phone] during business hours, M-F 8:00 AM - 5:00 PM Central Time. Record requests for emergency care only can be directed to [phone] at any time.[facility] Encounters Date Type Department Care Team Description 09/30/2021 8:00 AM CDT Comprehensive Visit Department of Neurology in [address] [address] Mer Chiang M.D., M.P.H. Transient Ischemic Attack (Primary Dx); Headache Stabbing Idiopathic 02/11/2017 10:35 AM CDT - 02/11/2017 11:59 PM CDT Hospital En[facility] Titi Odonnell, PShavonA.-Adria 12/22/2015 11:28 AM CDT - 12/22/2015 11:59 PM CDT Hospital Encounter HX [facility] PM[facility] En Farley M.D. Allergies [...] daily Active UNABLE TO FIND Med Name:Triple [place] Complex 2 tablets daily. Active prasterone, dhea, [...]
[2023-09-21 22:22] LABS: Magnesium* 1.5 mg/dL (1.5-2.6)
[2023-09-21] MEDS: PIPERACILLIN/TAZOBACTAM 3.375 GM in 0.9 % SODIUM CHLORIDE Mini-bag 100 ML IVPB (22:36)
[2023-09-21 22:38] LABS: Troponin I* < 0.01 ng/mL (0.01-0.04)
[2023-09-21 23:00] VITALS: BP 104/65; PULSE 92; RESP 16; TEMP 38; O2SAT 96
[2023-09-21] MEDS: ENOXAPARIN 30 MG/0.3ML INJ SUBCUT (23:54)
[2023-09-21] MEDS: FAMOTIDINE 20 MG TABLET PO (23:55)
[2023-09-21] MEDS: ATORVASTATIN CALCIUM 40 MG TABLET PO (23:55)
[2023-09-21] MEDS: SODIUM CHLORIDE 0.9 % (FLUSH) 10 ML SYRINGE 5 ML IVF (23:55)
[2023-09-22] VITALS (14 sets, daily range): BP systolic 96–113; BP diastolic 56–66; PULSE 74–89; RESP 16–20; TEMP 37.4–38.2; O2SAT 94–98
[2023-09-22] MEDS: PIPERACILLIN/TAZOBACTAM 2.25 GM in 0.9 % SODIUM CHLORIDE Mini-bag 100 ML IVPB ×4 (03:43→21:15)
[2023-09-22 06:33] LABS: Lactate* 0.9 mmol/L (0.5-1.9)
[2023-09-22 06:37] LABS: Eosinophils Absolute Auto 0.27 K/uL (0.00-0.50); Eosinophils Percent Auto 2.7 % (0.0-7.0); Hemoglobin* 12.5 gm/dL (13.5-17.5); Immature Granulocytes Abs Auto 0.04 K/uL (0.00-0.30); Immature Granulocytes Pct Auto 0.4 %; Lymphocytes Percent Auto 5.5 % (20-44); Mean Corpuscular HGB Conc 32 gm/dL (32-36); Mean Corpuscular Hemoglobin 28 pg (26-34); Mean Corpuscular Volume 88 fL (80-100); Monocytes Percent Auto 5.2 % (0.0-11.0); Neutrophils Percent Auto 86.2 % (42.0-72.0); Platelet Count* 150 K/uL (140-440); RDW Coefficient of Variation % 14.5 % (11.5-15.5); Red Blood Count 4.41 m/uL (4.30-5.90); White Blood Count* 10.18 K/uL (4.50-11.00)
[2023-09-22 06:42] LABS: Slide Review Reflex No
[2023-09-22 06:48] LABS: Chloride* 107 mmol/L (96-114)
[2023-09-22 06:49] LABS: Potassium* 4.3 mmol/L (3.6-5.1); Sodium* 135 mmol/L (135-149)
[2023-09-22 06:51] LABS: Anion Gap 8 mEq/L (7-15); Carbon Dioxide* 20 mmol/L (20-32); Creatinine* 1.6 mg/dL (0.5-1.5); Est. Creatinine Clearance* 43.79; Estimated Glomerular Filt Rate 45 ml/min
[2023-09-22 06:52] LABS: Blood Urea Nitrogen* 33 mg/dL (7-30); Calcium* 7.5 mg/dL (8.4-10.6); Glucose* 107 mg/dL (60-115)
--- NOTE | 2023-09-22 06:57 | PC.NURSE ---
Pt very tired. HE is pleasant and cooperative. Up with SBA. BP's in the low 100's/50's over night. Cont with a low grade temp of 100.4. Denies any nausea. Tolerating cl liquids. Did have 4 small to moderated loose stools. Urine is lightening up and is a med aliza color.
[2023-09-22 07:09] LABS: C Reactive Protein* 18.6 mg/dL (0.5-1.0)
[2023-09-22] MEDS: ACETAMINOPHEN 325 MG TABLET 650 MG PO ×3 (08:50→20:50)
[2023-09-22] MEDS: FAMOTIDINE 20 MG TABLET PO ×2 (08:51→20:52)
[2023-09-22] MEDS: ASPIRIN 81 MG TABLET EC PO (08:51)
[2023-09-22] MEDS: CLOPIDOGREL 75 MG TABLET PO (08:52)
--- NOTE | 2023-09-22 15:01 | PM.IMPN1 ---
Progress Note: A&P Assessment and plan (1) Sepsis: Problem details: Fever, hypotension, elevated white blood count and CRP, metabolic acidosis, acute kidney injury, metabolic encephalopathy WBC normalized, lactate 0.9. Pressure is marginally improving. Continue Zosyn, vancomycin discontinued. UC, BC x2 pending Has received 3.5 L IVF since admission, discontinue, small boluses p.r.n. Okay for med surge status Status: Acute (2) Urinary tract infection: Problem details: Urine culture from 09/19 growing E coli. UC 09/[address] showing bladder inflammation. Continue IV Zosyn Status: Acute (3) Acute kidney injury: Problem details: Due to acute illness and Bactrim DS Creatinine improved to 1.6 from 2.2, continue to monitor Status: Acute (4) Aortic stenosis: Problem details: s/p TAVR 2023. Clinically and by based on echo appears to be working well Status: Acute (5) Abdominal pain: Problem details: Improving, probably due to UTI. Continue to monitor CT shows bladder wall thickening, cholelithiasis without cholecystitis, diverticulosis without acute diverticulitis Status: Acute (6) Drug intolerance: Problem details: Quinolones cause depression symptoms. Remote history of syncope after penicillin. Acute kidney injury after Bactrim DS. Status: Acute (7) Metabolic encephalopathy: Problem details: Due to acute illness/sepsis. further assessment if getting worse or not clearing with infection improving - improving, continue to monitor Status: Acute (8) Hypertension: Problem details: Holding metoprolol for now Status: Acute Time Spent With Patient Total time spent: Total time spent caring for the patient today was 45 minutes. This includes time spent for the visit reviewing the chart, time spent during the visit, time spent after the visit and documentation and planning in coordination of care. Subjective Date Seen: 09/22/23 Interval history: Patient is seen with at bedside. Reports feeling a bit better but is quite tired. Did not sleep well. Denies headache or dizziness. Continues with fevers. Systolic blood pressures have improved marginally. Denies nausea or vomiting. Was seen in the clinic on 09/19, diagnosed with suspected diverticulitis, prescribed metronidazole and Bactrim. CT obtained in ED shows diverticulosis without evidence of diverticulitis. Urine culture from 09/19 growing E coli, sensitivities reviewed. Urine culture and blood cultures from 09/20 pending Exam Narrative: Exam Narrative: PHYSICAL EXAM General: Pleasant, conversant, NAD HEENT: Normocephalic, atraumatic, sclera white, EOMI, oral mucosa moist Cardiovascular: RRR, S1S2. No pitting edema Pulmonary: CTA bilaterally without rhonchi, rales, expiratory wheezes. No dyspnea on room air Abdominal: Soft, nondistended, NTTP Neurological: Alert, answering questions appropriately, cranial nerves intact, no focal findings Extremities: No gross joint deformity or swelling. AROMI. Neurovascularly intact Skin: Warm, dry. Const: Vital Signs, click to edit/add: Vital Signs - 24 hr 09/21/23 16:17 09/21/23 19:27 09/21/23 20:30 Temperature 98.4 F 98.9 F 99.2 F Pulse Rate Pulse Rate [Pulse Oximeter] Pulse Rate [Right Pulse Oximeter] 98 85 87 Respiratory Rate 18 20 Blood Pressure [Ri ght Arm] Blood Pressure [Ri ght Upper Arm] 91/53 L 87/58 L 101/63 Pulse Oximetry 96 96 96 Oxygen Delivery Nd thod Room Air Room Air Room Air 09/21/23 21:48 09/21/23 21:49 09/21/23 23:00 Temperature 99.8 F H 100.4 F H Pulse Rate Pulse Rate [Pulse Oximeter] 88 92 Pulse Rate [Right Pulse Oximeter] Respiratory Rate 18 16 Blood Pressure [Ri ght Arm] 100/63 104/65 Blood Pressure [Ri ght Upper Arm] Pulse Oximetry 94 97 96 [facility] Room Air Room Air 09/22/23 00:30 09/22/23 00:50 09/22/23 03:00 Temperature 99.4 F 99.4 F Pulse Rate 89 Pulse Rate [Pulse Oximeter] 81 81 Pulse Rate [Right Pulse Oximeter] Respiratory Rate 16 20 Blood Pressure [Ri ght Arm] 99/56 L Blood Pressure [Ri ght Upper Arm] Pulse Oximetry 94 94 [facility]xygen [facility] Room Air 09/22/23 07:00 09/22/23 07:00 09/22/23 07:00 Temperature 100.8 F H Pulse Rate 86 Pulse Rate [Pulse Oximeter] 83 83 Pulse Rate [Right Pulse Oximeter] Respiratory Rate 18 18 Blood Pressure [Ri ght Arm] 106/64 Blood Pressure [Ri ght Upper Arm] Pulse Oximetry 95 Oxygen Delivery Me thod Room Air 09/22/23 08:50 09/22/23 11:00 Temperature 100.8 F H 99.8 F H Pulse Rate Pulse Rate [Pulse Oximeter] 74 Pulse Rate [Right Pulse Oximeter] Respiratory Rate 20 Blood Pressure [Ri ght Arm] 96/61 Blood Pressure [Ri ght Upper Arm] Pulse Oximetry 94 Oxygen Delivery Me thod Room Air Labs Labs: Laboratory Results - last 24 hr 09/21/23 09/21/23 09/21/23 15:59 16:39 20:26 WBC 16.60 H RBC 5.20 Hgb 14.8 Hct 44.4 MCV 85 MCH 29 MCHC 33 RDW Coeff of [place] 14.3 Plt Count 171 Neut % (Auto) 91.9 H Lymph % (Auto) 2.8 L [place] % (Auto) 4.6 Eos % (Auto) 0.3 Baso % (Auto) 0.1 Neut # (Auto) 15.30 H Lymph # (Auto) 0.50 L [place] # (Auto) 0.80 Eos # (Auto) 0.00 Baso # (Auto) 0.00 Abs Immat Gran (auto) 0.00 Imm/Tot Granulo (auto) 0.3 Sodium 131 L Potassium 4.1 Chloride 102 Carbon Dioxide 17 L Anion Gap 12 BUN 39 H Creatinine 2.2 H Estimated Creat Clear 32.82 Estimated GFR 31 Glucose 133 H Lactate 1.8 Calcium 8.6 Magnesium Total Bilirubin 1.6 H Direct Bilirubin 0.1 AST 28 ALT 30 Alkaline Phosphatase 63 Troponin I C-Reactive Protein 22.6 H Total Protein 7.3 Albumin 4.1 Procalcitonin 0.70 H Urine Color Yellow Urine Appearance Slightly Cloudy A Urine pH 5.5 Ur Specific [place] 1.010 Urine Protein Trace A Urine Glucose (UA) Negative Urine Ketones Negative Urine Blood Trace-intact A Urine Nitrite Negative Urine Bilirubin Negative Urine Urobilinogen 0.2 Ur Leukocyte Esterase 1+ A Urine RBC 0-2 Urine WBC 10-25 A Ur Squamous Epith Cells None Urine Bacteria Few A POC Troponin I 0.03 09/21/23 09/21/23 09/22/23 21:25 21:25 05:58 WBC 10.18 RBC 4.41 Hgb 12.5 L Hct 39.0 MCV 88 MCH 28 MCHC 32 RDW Coeff of [place] 14.5 Plt Count 150 Neut % (Auto) 86.2 H Lymph % (Auto) 5.5 L [place] % (Auto) 5.2 Eos % (Auto) 2.7 Baso % (Auto) 0.0 Neut # (Auto) 8.80 H Lymph # (Auto) 0.60 L [place] # (Auto) 0.50 Eos # (Auto) 0.27 Baso # (Auto) 0.00 Abs Immat Gran (auto) 0.04 Imm/Tot Granulo (auto) 0.4 Sodium 135 Potassium 4.3 Chloride 107 Carbon Dioxide 20 Anion Gap 8 BUN 33 H Creatinine 1.6 H Estimated Creat Clear 43.79 Estimated GFR 45 Glucose 107 Lactate 1.7 0.9 Calcium 7.5 L Magnesium Cancelled 1.5 Total Bilirubin Direct Bilirubin AST ALT Alkaline Phosphatase Troponin I < 0.01 L C-Reactive Protein 18.6 H Total Protein Albumin Procalcitonin Urine Color Urine Appearance Urine pH Ur Specific [place] Urine Protein Urine Glucose (UA) Urine Ketones Urine Blood Urine Nitrite Urine Bilirubin Urine Urobilinogen Ur Leukocyte Esterase Urine RBC Urine WBC Ur Squamous Epith Cells Urine Bacteria POC Troponin I
[2023-09-22 16:42] LABS: C.Difficile Negative (Negative); CDIFFEPI 027 PRESUMPTIVE NEGATIVE (Negative)
--- NOTE | 2023-09-22 17:26 | PC.NURSE ---
End of shift. pt has been very pleasant. he was a unit pt and he was made a floor pt later. . Up with SBA with the IV pole. low grade temp of 100.7. eating, drinking and voiding with no problems. Denies any nausea. Did have 3 small to moderated loose stools. C-Diff sent. Urine is lightening up and is a med aliza color.
--- NOTE | 2023-09-22 19:12 | PC.NURSE ---
End of shift [id number] - RN took over pt care at 1500. Pt alert, oriented, cooperative. Up independent in room, continent of bowel and bladder during shift. Pt denies pain, SOB, dizziness. Pt temperature noted to be elevated, given Tylenol per [facility] instruction. Family at bedside, pt appears to be resting comfortably in chair at end of shift.
[2023-09-22] MEDS: ATORVASTATIN CALCIUM 40 MG TABLET PO (20:51)
[2023-09-22] MEDS: SODIUM CHLORIDE 0.9 % (FLUSH) 10 ML SYRINGE 5 ML IVF (20:52)
[2023-09-22] MEDS: ENOXAPARIN 30 MG/0.3ML INJ SUBCUT (20:52)
[2023-09-23] VITALS (10 sets, daily range): BP systolic 108–134; BP diastolic 60–69; PULSE 62–78; RESP 16–18; TEMP 36.7–36.9; O2SAT 95–98
[2023-09-23] MEDS: PIPERACILLIN/TAZOBACTAM 2.25 GM in 0.9 % SODIUM CHLORIDE Mini-bag 100 ML IVPB ×2 (03:35→09:30)
--- NOTE | 2023-09-23 05:54 | PC.NURSE ---
Pt up IND in room. No confusion present. Stating he feels much better. Afebrile. Reporting zero pain
[2023-09-23 06:27] LABS: Basophils Absolute Auto 0.01 K/uL (0.00-0.30); Basophils Percent Auto 0.2 % (0.0-3.0); Eosinophils Absolute Auto 0.35 K/uL (0.00-0.50); Eosinophils Percent Auto 5.5 % (0.0-7.0); Hematocrit 38.7 % (37.0-53.0); Hemoglobin* 12.3 gm/dL (13.5-17.5); Immature Granulocytes Abs Auto 0.01 K/uL (0.00-0.30); Immature Granulocytes Pct Auto 0.2 %; Lymphocytes Percent Auto 11.3 % (20-44); Mean Corpuscular HGB Conc 32 gm/dL (32-36); Mean Corpuscular Hemoglobin 28 pg (26-34); Mean Corpuscular Volume 88 fL (80-100); Monocytes Percent Auto 8.5 % (0.0-11.0); Neutrophils Percent Auto 74.3 % (42.0-72.0); Platelet Count* 132 K/uL (140-440); RDW Coefficient of Variation % 14.6 % (11.5-15.5); Red Blood Count 4.38 m/uL (4.30-5.90); White Blood Count* 6.39 K/uL (4.50-11.00)
[2023-09-23 06:29] LABS: Slide Review Reflex No
[2023-09-23 06:50] LABS: Chloride* 112 mmol/L (96-114); Sodium* 137 mmol/L (135-149)
[2023-09-23 06:52] LABS: Creatinine* 1.1 mg/dL (0.5-1.5); Estimated Glomerular Filt Rate 71 ml/min
[2023-09-23 06:53] LABS: Anion Gap 6 mEq/L (7-15); Blood Urea Nitrogen* 20 mg/dL (7-30); Calcium* 7.7 mg/dL (8.4-10.6); Carbon Dioxide* 19 mmol/L (20-32); Glucose* 88 mg/dL (60-115)
[2023-09-23] MEDS: ASPIRIN 81 MG TABLET EC PO (08:14)
[2023-09-23] MEDS: CLOPIDOGREL 75 MG TABLET PO (08:14)
[2023-09-23] MEDS: FAMOTIDINE 20 MG TABLET PO ×2 (08:14→20:12)
[2023-09-23] MEDS: SODIUM CHLORIDE 0.9 % (FLUSH) 10 ML SYRINGE 5 ML IVF ×2 (08:15→20:12)
[2023-09-23 10:22] LABS: C Reactive Protein* 11.3 mg/dL (0.5-1.0)
--- NOTE | 2023-09-23 11:49 | P.IMPN_ITS ---
Progress Note: A&P Assessment and plan (1) Sepsis: Problem details: Fever, hypotension, elevated white blood count and CRP, metabolic acidosis, acute kidney injury, metabolic encephalopathy WBC normalized, lactate 0.9. Pressure is marginally improving. Continue Zosyn, vancomycin discontinued. UC, BC x2 pending Has received 3.5 L IVF since admission, discontinue, small boluses p.r.n. - adequate oral intake Okay for med surg status 09/22: Continues to improve, leukocytosis resolved, CRP downtrending, BC x2 NGTD, 2nd UC < 15081 g negative rods Status: Acute (2) Urinary tract infection: Problem details: Urine culture from 09/19 growing E coli, sensitive to all except Bactrim. UC 09/20 < [address] showing bladder inflammation. Continue IV Zosyn. Plan to transition to oral antibiotic upon discharge Status: Acute (3) Acute kidney injury: Problem details: Due to acute illness and Bactrim DS Creatinine 1.1 (2.2 on admission) Status: Acute (4) Aortic stenosis: Problem details: s/p TAVR 2023. Clinically and by based on echo appears to be working well Status: Acute (5) Abdominal pain: Problem details: Improving, probably due to UTI. Continue to monitor - resolved CT shows bladder wall thickening, cholelithiasis without cholecystitis, diverticulosis without acute diverticulitis Status: Acute (6) Drug intolerance: Problem details: Quinolones cause depression symptoms. Remote history of syncope after penicillin. Acute kidney injury after Bactrim DS. Status: Acute (7) Metabolic encephalopathy: Problem details: Due to acute illness/sepsis. further assessment if getting worse or not clearing with infection improving - resolved Status: Acute (8) Hypertension: Problem details: Holding metoprolol for now Status: Acute (9) Diarrhea: Problem details: Prior to hospitalization, patient was told that it may be diverticulitis though CT scan confirms no active diverticulitis C diff negative, GI pathogens pending Improving, no stools in past 24 hours documented Status: Acute Plan Documented fevers in past 24 hours, subjective report of feeling flushed. Will continue with IV antibiotics, possible discharge 09/23 pending continued clinical improvement Time Spent With Patient Total time spent: Total time spent caring for the patient today was 45 minutes. This includes time spent for the visit reviewing the chart, time spent during the visit, time spent after the visit and documentation and planning in coordination of care. Subjective Date Seen: 09/23/23 Interval history: Patient is seen sitting up in a chair, present. Feeling better this morning. Reports sleeping well overnight. Denies headache or dizziness. Denies chest pain or shortness of breath. Tolerating orals without nausea. Documented fevers 100.1? last night. These have been temporal. Nursing staff tells me oral readings have been < 100?. Patient sources ongoing intermittent flushes of warmth. Exam Narrative: Exam Narrative: PHYSICAL EXAM General: Pleasant, conversant, NAD HEENT: Normocephalic, atraumatic, sclera white, EOMI, oral mucosa moist Cardiovascular: RRR, S1S2. No pitting edema Pulmonary: CTA bilaterally without rhonchi, rales, expiratory wheezes. No dyspnea on room air Neurological: Alert, answering questions appropriately, cranial nerves intact, no focal findings Extremities: No gross joint deformity or swelling. AROMI. Neurovascularly intact Skin: Warm, dry. Const: Vital Signs, click to edit/add: Vital Signs - 24 hr 09/22/23 16:13 09/22/23 17:24 09/22/23 17:35 Temperature 100.8 F H 100.2 F H Pulse Rate 77 Pulse Rate [Pulse Oximeter] 84 Respiratory Rate 20 Blood Pressure [Ri ght Arm] 113/66 Pulse Oximetry 96 Oxygen Delivery Me thod Room Air 09/22/23 19:29 09/22/23 20:50 09/22/23 20:50 Temperature 100.1 F H 100.1 F H 100.1 F H Pulse Rate Pulse Rate [Pulse Oximeter] 80 Respiratory Rate 18 Blood Pressure [Ri ght Arm] 102/60 Pulse Oximetry 98 Oxygen Delivery Me thod Room Air 09/22/23 21:38 09/22/23 21:51 09/22/23 21:52 Temperature 99.4 F 99.4 F Pulse Rate 80 Pulse Rate [Pulse Oximeter] 78 Respiratory Rate 16 Blood Pressure [Ri ght Arm] 109/59 L Pulse Oximetry 95 Oxygen Delivery Me thod Room Air 09/23/23 00:32 09/23/23 01:57 09/23/23 06:58 Temperature 98.4 F Pulse Rate 62 Pulse Rate [Pulse Oximeter] 78 76 Respiratory Rate 16 16 Blood Pressure [Ri ght Arm] 114/63 Pulse Oximetry 96 Oxygen Delivery Me thod Room Air 09/23/23 07:17 09/23/23 11:18 Temperature 98.4 F 98.0 F Pulse Rate Pulse Rate [Pulse Oximeter] 72 64 Respiratory Rate 16 16 [facility] 116/67 116/66 Pulse Oximetry 95 97 Oxygen Delivery Me thod Room Air Room Air Labs Labs: Laboratory Results - last 24 hr 09/22/23 09/23/23 11:55 06:08 WBC 6.39 RBC 4.38 Hgb 12.3 L Hct 38.7 MCV 88 MCH 28 MCHC 32 RDW Coeff of [place]ida 14.6 Plt Count 132 L Neut % (Auto) 74.3 H Lymph % (Auto) 11.3 L [place] % (Auto) 8.5 Eos % (Auto) 5.5 Baso % (Auto) 0.2 Neut # (Auto) 4.70 Lymph # (Auto) 0.70 L [place] # (Auto) 0.50 Eos # (Auto) 0.35 Baso # (Auto) 0.01 Abs Immat Gran (auto) 0.01 Imm/Tot Granulo (auto) 0.2 Sodium 137 Potassium 4.0 Chloride 112 Carbon Dioxide 19 L Anion Gap 6 L BUN 20 Creatinine 1.1 Estimated Creat Clear 63.70 Estimated GFR 71 Glucose 88 Calcium 7.7 L C-Reactive Protein 11.3 H Stl C. diff Tox B Gene Negative Stl C. diff [id number] PRESUMPTIVE NEGATIVE
[2023-09-23] MEDS: PIPERACILLIN/TAZOBACTAM 3.375 GM in 0.9 % SODIUM CHLORIDE Mini-bag 100 ML IVPB ×2 (15:33→21:41)
--- NOTE | 2023-09-23 17:11 | PC.NURSE ---
Pt alert and oriented. Pt independent. Pt up walking in hallways. Pt had no complaints of pain. VSS, afebrile. Pt's at bedside most of shift. Pt likely to discharge home tomorrow if continues to be afebrile.
[2023-09-23] MEDS: ATORVASTATIN CALCIUM 40 MG TABLET PO (20:12)
[2023-09-23] MEDS: 0.9 % SODIUM CHLORIDE 250 ml IV (21:41)
[2023-09-24 03:00] VITALS: BP 121/66; PULSE 60; RESP 18; TEMP 36.8; O2SAT 95
[2023-09-24] MEDS: PIPERACILLIN/TAZOBACTAM 3.375 GM in 0.9 % SODIUM CHLORIDE Mini-bag 100 ML IVPB ×2 (03:21→09:03)
[2023-09-24 06:36] LABS: Basophils Absolute Auto 0.02 K/uL (0.00-0.30); Basophils Percent Auto 0.4 % (0.0-3.0); Eosinophils Percent Auto 5.3 % (0.0-7.0); Hematocrit 40.5 % (37.0-53.0); Hemoglobin* 12.8 gm/dL (13.5-17.5); Immature Granulocytes Abs Auto 0.01 K/uL (0.00-0.30); Immature Granulocytes Pct Auto 0.2 %; Lymphocytes Absolute Auto 1.27 K/uL (0.90-2.90); Lymphocytes Percent Auto 22.4 % (20-44); Mean Corpuscular HGB Conc 32 gm/dL (32-36); Mean Corpuscular Hemoglobin 28 pg (26-34); Mean Corpuscular Volume 88 fL (80-100); Monocytes Percent Auto 9.9 % (0.0-11.0); Neutrophils Absolute Auto 3.51 K/uL (1.7-7.0); Neutrophils Percent Auto 61.8 % (42.0-72.0); Platelet Count* 158 K/uL (140-440); RDW Coefficient of Variation % 14.4 % (11.5-15.5); Red Blood Count 4.62 m/uL (4.30-5.90); White Blood Count* 5.67 K/uL (4.50-11.00)
[2023-09-24 06:44] LABS: Slide Review Reflex No
--- NOTE | 2023-09-24 06:56 | PC.NURSE ---
19-: pleasant and cooperative. indep. VSS. AFebrile.
[2023-09-24 06:59] LABS: Chloride* 110 mmol/L (96-114); Potassium* 3.9 mmol/L (3.6-5.1); Sodium* 139 mmol/L (135-149)
[2023-09-24 07:02] LABS: Anion Gap 5 mEq/L (7-15); Carbon Dioxide* 24 mmol/L (20-32); Creatinine* 1.1 mg/dL (0.5-1.5); Estimated Glomerular Filt Rate 71 ml/min
[2023-09-24 07:03] LABS: Blood Urea Nitrogen* 16 mg/dL (7-30); Calcium* 8.3 mg/dL (8.4-10.6); Glucose* 101 mg/dL (60-115)
[2023-09-24 07:24] VITALS: BP 118/71; PULSE 56; RESP 16; TEMP 36.6; O2SAT 97
[2023-09-24] MEDS: ASPIRIN 81 MG TABLET EC PO (09:02)
[2023-09-24] MEDS: CLOPIDOGREL 75 MG TABLET PO (09:02)
[2023-09-24] MEDS: SODIUM CHLORIDE 0.9 % (FLUSH) 10 ML SYRINGE 5 ML IVF (09:02)
[2023-09-24] MEDS: FAMOTIDINE 20 MG TABLET PO (09:02)
[2023-09-24 10:37] VITALS: BP 125/66; PULSE 61; RESP 16; TEMP 36.5; O2SAT 95
--- NOTE | 2023-09-24 11:03 | PC.NURSE ---
Pt alert and oriented. Pt had no complaints of pain.Pt up independently. Pt's IV removed. Pt discharged home with .
--- NOTE | 2023-09-24 15:30 | P.DS_ITS ---
DS: Providers Provider Date Seen: 09/24/23 Date of admission: 09/21/23 22:15 Primary care physician: Lyle Perry MD Admitting Clinician: David Marquez MD Attending Physician on discharge: Jabier Carl MD Date of Discharge: 09/24/23 DS: Diagnosis Discharge Diagnosis (1) Sepsis: Status: Acute Problem details: Fever, hypotension, elevated white blood count and CRP, metabolic acidosis, acute kidney injury, metabolic encephalopathy WBC normalized, lactate 0.9. Pressure is marginally improving. Continue Zosyn, vancomycin discontinued. UC, BC x2 pending Has received 3.5 L IVF since admission, discontinue, small boluses p.r.n. - adequate oral intake Okay for med surg status 09/22: Continues to improve, leukocytosis resolved, CRP downtrending, BC x2 NGTD, 2nd UC < 92290 g negative rods (2) UTI (urinary tract infection): Status: Acute (3) Urinary tract infection: Status: Acute Problem details: Urine culture from 09/19 growing E coli, sensitive to all except Bactrim. UC 09/20 < [address] showing bladder inflammation. Continue IV Zosyn. Plan to transition to cephalexin 500 mg po tid x 10 days upon discharge. (4) Acute kidney injury: Status: Acute Problem details: Due to acute illness and Bactrim DS Creatinine 1.1 (2.2 on admission) (5) Drug intolerance: Status: Acute Problem details: Quinolones cause depression symptoms. Remote history of syncope after penicillin. Acute kidney injury after Bactrim DS. (6) Metabolic encephalopathy: Status: Acute Problem details: Due to acute illness/sepsis. further assessment if getting worse or not clearing with infection improving - resolved (7) Diarrhea: Status: Acute Problem details: Prior to hospitalization, patient was told that it may be diverticulitis though CT scan confirms no active diverticulitis. C diff negative, GI pathogens pending. Improving, no stools in past 24 hours documented. Probiotic for the next 3 months. (8) Abdominal pain: Status: Acute Problem details: Improving, probably due to UTI. Continue to monitor - resolved CT shows bladder wall thickening, cholelithiasis without cholecystitis, diverticulosis without acute diverticulitis DS: Summary Hospital Course Hospital Course: Admission history of present illness: Sae Bishop is a 72 year old male with coronary artery disease and recent TAVR presents with a 2 day history of fatigue, malaise abdominal pain and dysuria and a 1 day history of fever and diarrhea. Today is noted that he seemed confused. One month ago he underwent uncomplicated TAVR at [facility]. He had good recovery from that and was doing well. He started to feel a little tired about 2 weeks ago. Because of that they repeated his echocardiogram yesterday and this showed a normal LV ejection fraction of 66%, normal right ventricular function, normal functioning TAVR. He was seen in clinic yesterday where he was clinically diagnosed with diverticulitis and started on metronidazole and Bactrim DS. Shortly after that he did develop some diarrhea. He notes yesterday and today he has had a fever and felt more ill. He has also had dysuria and urinary urgency. Been eating poorly reports minimal appetite. He has not had any vomiting. He reports his abdominal pain is better than it was 2 days ago. ?In our emergency department he was found to be hypotensive. He was treated with 2.5 L of normal saline with modest improvement in his blood pressure. He receives ceftriaxone to treat a UTI. He had a CT abdomen and pelvis without contrast showing evidence of cystitis without other obvious site of infection. He had an increase in his creatinine from a baseline of 1.2-1.5 now up to 2.2.? Blood cultures obtained. Urine cultures obtained. Started on empiric vancomycin plus Zosyn. Blood cultures negative today. Urine culture grew out E coli resistant to TMP SMX and sensitive to all other antibiotics. Given patient's previous adverse reaction to penicillin he is discharged on cephalexin. Time Spent with Patient Time attestation: Total time spent providing and/or coordinating discharge services: Exam Narrative: Exam Narrative: General: Pleasant, conversant, NAD HEENT: Normocephalic, atraumatic, sclera white, EOMI, oral mucosa moist Cardiovascular: RRR, S1S2. No pitting edema Pulmonary: CTA bilaterally without rhonchi, rales, expiratory wheezes. No dyspnea on room air Neurological: Alert, answering questions appropriately, cranial nerves intact, no focal findings Extremities: No gross joint deformity or swelling. AROMI. Neurovascularly intact Skin: Warm, dry. Const: Vital Signs, click to edit/add: Vital Signs - 24 hr 09/23/23 20:05 09/23/23 21:45 09/23/23 22:30 Temperature 98.5 F 98.4 F Pulse Rate [Pulse Oximeter] 76 66 Respiratory Rate 18 18 18 Blood Pressure [Ri ght Arm] 134/64 108/60 Pulse Oximetry 98 96 Oxygen Delivery Me thod Room Air Room Air 09/24/23 03:00 09/24/23 07:24 09/24/23 10:37 Temperature 98.2 F 97.8 F 97.7 F Pulse Rate [Pulse Oximeter] 60 56 L 61 Respiratory Rate 18 16 16 Blood Pressure [Ri ght Arm] 121/66 118/71 125/66 Pulse Oximetry 95 97 95 Oxygen Delivery Me thod Room Air Room Air Room Air Documenting provider has reviewed patient's vital signs: yes DS: Data Data Completed and Pending Labs on day of discharge: Labs from last 24 hours 09/24/23 05:57 WBC 5.67 RBC 4.62 Hgb 12.8 L Hct 40.5 MCV 88 MCH 28 MCHC 32 RDW Coeff of Lida 14.4 Plt Count 158 Neut % (Auto) 61.8 Lymph % (Auto) 22.4 [place] % (Auto) 9.9 Eos % (Auto) 5.3 Baso % (Auto) 0.4 Neut # (Auto) 3.51 Lymph # (Auto) 1.27 [place] # (Auto) 0.60 Eos # (Auto) 0.30 Baso # (Auto) 0.02 Abs Immat Gran (auto) 0.01 Imm/Tot Granulo (auto) 0.2 Sodium 139 Potassium 3.9 Chloride 110 Carbon Dioxide 24 Anion Gap 5 L BUN 16 Creatinine 1.1 Estimated Creat Clear 63.70 Estimated GFR 71 Glucose 101 Calcium 8.3 L C-Reactive Protein 5.0 H Preliminary micro results at discharge 09/21/23 17:35 Blood Culture - Preliminary Blood NO GROWTH AFTER 48 HOURS 09/21/23 15:59 Blood Culture - Preliminary Blood NO GROWTH AFTER [address] scan - abdomen and pelvis: Radiologist's impression: 09/21/2023 IMPRESSION: 1. circumferential bladder wall thickening may be related to cystitis. Correlate with UA. 2. Cholelithiasis without CT evidence of cholecystitis. 3. Colonic diverticulosis without evidence of acute diverticulitis. Discharge Plan Discharge Disposition: Home, Self-Care Date of Admission: 09/21/23 22:15 Attending Provider on Discharge: Jabier Carl Primary Care Provider: Lyle Perry Condition: Improved Anticipated Discharge Date/Time: 09/24/23 10:30 Discharge Medications: New cephalexin 500 mg capsule 500 mg PO TID Qty: 30 0RF Lactobacillus acidophilus 0.5 mg (100 million cell) Tablet 1 mg PO TIDWM Qty: 90 1RF Rx Instructions: May substitute with a different probiotic, follow product directions and take for 3 months. Continued metoprolol tartrate 50 mg tablet 50 mg PO BID famotidine 20 mg tablet 20 mg PO BID Qty: 180 3RF atorvastatin 40 mg tablet 40 mg PO QHS Qty: 90 3RF aspirin 81 mg capsule 81 mg PO QDAY blm joint support 715 mg PO DAILY calcium citrate 250 mg calcium tablet 250 mg PO BID cholecalciferol (vitamin D3) 50 mcg (2,000 unit) capsule See Rx Instructions PO QDAY Rx Instructions: 2 am, 1 pm orally every day; prasterone (dhea) 50 mg tablet 100 mg PO QDAY omega 800 mg PO DAILY prostate support PO DAILY triple boran bones 3 mg 6 mg PO BID coQ10 (ubiquinol) 100 mg capsule 200 mg PO QDAY cyanocobalamin (vitamin B-12) 500 mcg lozenge 500 mcg PO QDAY pyridoxine (vitamin B6) 100 mg tablet 50 mg PO QDAY ascorbic acid (vitamin C) 1,000 mg tablet 1 g PO QDAY vit e 100 mcg PO DAILY vitamin K2 100 mcg capsule 100 mcg PO QDAY zinc 22 mg PO clopidogrel 75 mg tablet 75 mg PO QDAY testosterone 50 mg/5 gram (1 %) gel 1 tube transdermal QAM Qty: 90 1RF Discontinued metronidazole 500 mg tablet 500 mg PO TID 7 Days Qty: 21 0RF sulfamethoxazole-trimethoprim [Bactrim DS] 800-160 mg tablet 1 tab PO BID 7 Days Qty: 14 0RF Discharge Orders: Discharge Order (Routine); Ordered 09/24/23 Ordered By: Jabier Carl Patient Education: Cephalexin (By mouth), Probiotic (By mouth) (Acidophilus Probiotic Blend, Culturelle,..., Urinary Tract Infection in Men (DC), Dysuria (GEN), Urinary Tract Infection in Older Adults (GEN) Activity Level: No Restrictions Discharge Diet: Regular Diet Detail: Drink adequate amount of fluids throughout the day, so as to urinate every 2 hours during the day. Follow Up Appointments: Lyle Perry MD [Primary Care Provider] - (F/U Dr. Perry 1-2 weeks, with pre-visit urinalysis.) Tin Hensley MD [Staff Physician] - 10/11/23 2:00 pm ([facility] for follow-up. With pre-visit urinalysis.) Forms: [employer] Info Instructions
[2023-09-25 00:29] LABS: Adenovirus PCR Not Detected; Astrovirus PCR Detected; Campylobacter PCR Not Detected; Cryptosporidium PCR Not Detected; Cyclospora cayetanensis PCR Not Detected; Entamoeba histolytica PCR Not Detected; Enteroaggregative E coli PCR Not Detected; Enteropathogenic E coli PCR Not Detected; Enterotoxigenic E coli PCR Not Detected; Giardia lamblia PCR Not Detected; Norovirus Gi/GII PCR Not Detected; Plesiomonas shig PCR Not Detected; Rotavirus A PCR Not Detected; Salmonella PCR Not Detected; Sapovirus PCR Not Detected; Shiga toxin E coli PCR Not Detected; Shigella/Enteroinvasive E coli Not Detected; Vibrio PCR Not Detected; Vibrio cholerae PCR Not Detected; Yersinia enterocolitica PCR Not Detected
== END 2023-09-24 11:02 | disposition home or self-care (01) | DRG 871 ==
LOC: ED 21:08 → MEDSURG 22:15
PROVIDERS: Physician Assistant; Admitting Provider Family Medicine; Emergency Provider Emergency Medicine; PCP Family Medicine; Visit Provider Family Medicine
DX: A41.9 Sepsis, unspecified organism (principal); G93.41 Metabolic encephalopathy; N39.0 Urinary tract infection, site not specified; B96.20 Unspecified Escherichia coli [E. coli] as the cause of diseases classified elsewhere; N17.9 Acute kidney failure, unspecified; R10.9 Unspecified abdominal pain; R19.7 Diarrhea, unspecified; I25.10 Atherosclerotic heart disease of native coronary artery without angina pectoris; I10 Essential (primary) hypertension; Z95.2 Presence of prosthetic heart valve; Z87.442 Personal history of urinary calculi; Z95.1 Presence of aortocoronary bypass graft; K80.20 Calculus of gallbladder without cholecystitis without obstruction; K57.30 Diverticulosis of large intestine without perforation or abscess without bleeding; I35.0 Nonrheumatic aortic (valve) stenosis
CPT/HCPCS: 36415; 71275; 74176; 80048; 80076; 81001; 81003; 83605; 83735; 84145; 84484; 85025; 86140; 87040; 87086; 87186; 87493; 87505; 93005; 99285; A9270; J0696; J1650; J2405; J2543; J3370; J7030; J7050; J7120; Q9967

== ENCOUNTER 2023-10-11 13:35 | Outpatient (CLI) | payer MEDICARE, SELFPAY ==
--- OUTSIDE RECORDS SUMMARY | 2023-10-27 18:28 | XMS_ITS | Clinical Summary ---
[facility] Address [address], [place] [address] Care Team Providers Care Parking Manager Name Role Phone Lyle Perry MD Primary Care Provider [phone] Source Comments You are receiving this document as you are listed as the primary care provider,follow-up provider, or the patient has been referred to you for consultation.This is in compliance with the Medicare and[facility] EHR Incentive Program,which states Providers who transition their patient to another setting of careor provider of care or refers their patient to another provider of care shouldprovide summary care record for each transition of care or referral. [employer] Allergies Active Allergy Reactions Criticality Noted Date Comments Ciprofloxacin Myalgias 03/08/2017 depression Levofloxacin 01/16/2020 Penicillins 01/16/2020 Medications Medication Sig Dispensed Refills Start Date End Date Status aspirin 81 MG chewable tablet Chew and swallow 81 mg by mouth. Active atorvastatin (LIPITOR) 40 MG tablet 07/02/2020 Active cholecalciferol (VITAMIND3) 50 MCG (1999) tablet Take 2,000 Units by mouth. Active metoprolol tartrate (LOPRESSOR) 25 MG tablet 06/30/2020 Active cyanocobalamin 500 MCG tablet Take 500 mcg by mouth. Active famotidine (PEPCID) 20 MG tablet 07/02/2020 Active tocopheryl (VITAMIN E) 400 units capsule Take 400 Units by mouth. Active Riboflavin 400 MG TABS Take 1 Capsule by mouth. Active [place]-3 Fatty Acids ([employer] OMEGA-3 GUMMY FISH/DHA) 113.5 [...] age to complete this topic Care Teams Parking Manager Relationship Specialty Start Date End Date Lyle Perry MD [address] [place] [address] PCP - General Family Practice 12/30/22
== END 2023-10-11 13:36 | disposition home or self-care (01) ==
LOC: NFLDREF 10-27 18:27
PROVIDERS: PCP Family Medicine; Visit Provider Family Medicine
DX: N30.00 Acute cystitis without hematuria (principal); B96.20 Unspecified Escherichia coli [E. coli] as the cause of diseases classified elsewhere
CPT/HCPCS: 87086; 87186

== ENCOUNTER 2023-11-24 08:19 | Outpatient (CLI) | payer MEDICARE, SELFPAY ==
--- OUTSIDE RECORDS SUMMARY | 2023-11-24 08:21 | XMS_ITS | Clinical Summary ---
[facility] Address [address] [address] Care Team Providers Care Line Server Name Role Phone Lyle Perry MD Primary Care Provider [phone] Source Comments You are receiving this document as you are listed as the primary care provider,follow-up provider, or the patient has been referred to you for consultation.This is in compliance with the Medicare and[facility] Cent[facility] EHR Incentive Program,which states Providers who transition their patient to another setting of careor provider of care or refers their patient to another provider of care shouldprovide summary care record for each transition of care or referral. [email or web address] Allergies Active Allergy Reactions Criticality Noted Date [...] TABS Take 1 Capsule by mouth. Active [place]-3 Fatty Acids ([employer] OMEGA-3 GUMMY FISH/DHA) 113.5 [...] - 2022-2 4 season) 2023 Influenza (#1) 2024 DTaP/Tdap/Td (2 - Tdap) 06/12/2027 06/12/19 [...] age to complete this topic Care Teams Line Server Relationship Specialty Start Date End Date Lyle Perry MD [address] [place] [address] PCP - General Family Practice 12/30/22
--- NOTE | 2023-11-24 10:01 | P.ANES_ITS ---
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
--- NOTE | 2023-11-24 11:39 | W.ANESCHARGE ---
Anesthesia Charges Start Date/Time Anesthesia Start Date: 11/24/23 Anesthesia Start Time: 09:28 Stop Date/Time Anesthesia Stop Date: 11/24/23 Anesthesia Stop Time: 09:59
--- NOTE | 2023-11-24 11:40 | W.ANESCHARGE ---
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
== END 2023-11-24 08:20 | disposition home or self-care (01) ==
LOC: OP CLINIC 08:19
PROVIDERS: PCP Family Medicine; Visit Provider Internal Medicine Gastroenterology
DX: Z12.11 Encounter for screening for malignant neoplasm of colon (principal); K63.5 Polyp of colon; K57.30 Diverticulosis of large intestine without perforation or abscess without bleeding; Z86.010 Personal history of colon polyps
CPT/HCPCS: 00811; 45380; 88305; 99100; J2704

== ENCOUNTER 2023-12-20 14:05 | Outpatient (CLI) | payer MEDICARE, SELFPAY ==
--- OUTSIDE RECORDS SUMMARY | 2023-12-21 08:52 | XMS_ITS | Clinical Summary ---
[facility] Address [address], [place] [address] Care Team Providers Care Block Mechanic Name Role Phone Lyle Perry MD Primary Care Provider [phone] Source Comments You are receiving this document as you are listed as the primary care provider,follow-up provider, or the patient has been referred to you for consultation.This is in compliance with the Medicare and[facility] Hospitalca[facility] EHR Incentive Program,which states Providers who transition their patient to another setting of careor provider of care or refers their patient to another provider of care shouldprovide summary care record for each transition of care or referral. [employer] Allergies Active Allergy Reactions Criticality Noted Date [...] TABS Take 1 Capsule by mouth. Active [place]-3 Fatty Acids ([employer] OMEGA-3 GUMMY FISH/DHA) 113.5 [...] age to complete this topic Care Teams Block Mechanic Relationship Specialty Start Date End Date Lyle Perry MD [address] [place] [address] PCP - General Family Practice 12/30/22
== END 2023-12-20 14:06 | disposition home or self-care (01) ==
LOC: NFLDREF 12-21 08:46
PROVIDERS: PCP Family Medicine; Referring Provider Family Medicine; Visit Provider Family Medicine
DX: E34.9 Endocrine disorder, unspecified (principal)
CPT/HCPCS: 80061; 80076; 84270; 84402; 84403

== ENCOUNTER 2024-03-11 08:19 | Emergency (ER) | payer MEDICARE, SELFPAY ==
[2024-03-11] VITALS (24 sets, daily range): BP systolic 128–179; BP diastolic 76–85; PULSE 63–86; RESP 14; O2SAT 92–98; BMI 28.7
--- OUTSIDE RECORDS SUMMARY | 2024-03-11 08:21 | XMS_ITS | Clinical Summary ---
Author Organization [facility] Address [address] [address] Care Team Providers Care Nurse Quality Name Role Phone Lyle Perry MD Primary Care Provider [phone] Source Comments You are receiving this document as you are listed as the primary care provider,follow-up provider, or the patient has been referred to you for consultation.This is in compliance with the Medicare and[facility]ca[facility] EHR Incentive Program,which states Providers who transition their patient to another setting of careor provider of care or refers their patient to another provider of care shouldprovide summary care record for each transition of care or referral. [employer] Allergies Active Allergy Reactions Criticality Noted Date [...] TABS Take 1 Capsule by mouth. Active [place]-3 Fatty Acids ([employer]S OMEGA-3 GUMMY FISH/DHA) 113.5 [...] Yrs (1 - PCV) 2014 COVID-19 Vaccine ( - 2023-2 5 season) 2024 Influenza (#1) 2024 RSV (1 - 1-dose 75+ series) 2024 DTaP/Tdap/Td (2 - Tdap) 06/12/2027 06/12/19 [...] on patient's age to complete this topic Infant RSV Aged Out No longer eligi ble based on patient's age to complete this topic MCV4 Aged Out No longer eligi ble based on patient's age to complete this topic Care Teams Nurse Quality Relationship Specialty Start Date End Date Lyle Perry MD [address] [place] [address] PCP - General Family Practice 12/30/22
--- NOTE | 2024-03-11 08:37 | CRLHL7_ITS ---
For Patients: As a result of the Century Cures Act, medical imaging exams and procedure reports are released immediately into your electronic medical record. You may view this report before your referring provider. If you have questions, please contact your health care provider. CLINICAL HISTORY: Left-sided facial numbness. TECHNIQUE: Standard helical CT image acquisition through the head following the administration of intravenous contrast was performed. 3D and MIP reconstructions were performed at a separate workstation and permanently archived. COMPARISON: CTA head and neck dated 08/25/2021. FINDINGS: No intracranial proximal large vessel occlusion or flow-limiting luminal stenosis. No evidence of cerebral aneurysm. No findings to suggest an arterial-venous shunting lesion. The major dural venous sinuses and deep venous system are patent. IMPRESSION: No intracranial proximal large vessel occlusion, flow-limiting luminal stenosis, or cerebral aneurysm. Please note that all CT scans at this facility use dose modulation, iterative reconstruction, and/or weight-based dosing when appropriate to reduce radiation dose to as low as reasonably achievable. Dictated by Ken Goldberg MD @ 03/11/2024 1:34:01 PM (Electronically Signed)
--- NOTE | 2024-03-11 08:37 | CRLHL7_ITS ---
For Patients: As a result of the Century Cures Act, medical imaging exams and procedure reports are released immediately into your electronic medical record. You may view this report before your referring provider. If you have questions, please contact your health care provider. Indication: Code stroke, left-sided facial numbness Technique: Volumetric multidetector CT images of the head were obtained without the administration of low osmolar intravenous contrast. Comparison: MRI brain August 25, [address] head August 25, 2021 Findings: There is no intra-axial or extra-axial fluid collection. There is no mass effect or midline shift. There is age-related cortical atrophy with mild sulcal widening and ex vacuo dilatation of the lateral ventricles. Periventricular and basal ganglia calcification is again seen. Moderate chronic small vessel disease changes of the subcortical and periventricular white matter. Otherwise, the brain parenchyma is preserved in attenuation and farris-white differentiation. The orbits and their contents are grossly within normal limits. The bony calvarium is grossly intact. Minimal chronic mucosal thickening in the paranasal sinuses and air-fluid level in left maxillary sinus. There is trace fluid in the right mastoid air cells. Impression: Stable age-related and chronic small-vessel disease changes of the brain without acute intracranial abnormality. Negative head report was sent to Dr. Alas at 8:57 a.m. March 11, 2024 Please note that all CT scans at this facility use dose modulation, iterative reconstruction, and/or weight-based dosing when appropriate to reduce radiation dose to as low as reasonably achievable. Dictated by Ed Ahmadi MD @ 03/11/2024 9:02:24 AM (Electronically Signed)
--- NOTE | 2024-03-11 08:37 | CRLHL7_ITS ---
For Patients: As a result of the Century Cures Act, medical imaging exams and procedure reports are released immediately into your electronic medical record. You may view this report before your referring provider. If you have questions, please contact your health care provider. CLINICAL HISTORY: Left-sided facial numbness. TECHNIQUE: Standard helical CT image acquisition through the neck was performed after intravenous contrast bolus enhancement. 3D and MIP reconstructions were performed at a separate workstation and permanently archived. COMPARISON: CTA head and neck dated 08/25/2022. FINDINGS: The origins of the great vessels from the aortic arch are patent. The common carotid arteries are patent. No significant luminal stenoses of the proximal ICAs by NASCET criteria. The more distal cervical segments of the ICAs are patent. The origins and cervical segments of the vertebral arteries are patent. Partial visualization of a 9mm pulmonary nodule within the visualized right lower lobe. IMPRESSION: 1. Patent cervical arterial vasculature without hemodynamically significant luminal stenosis. 2. Partial visualization of a 9mm pulmonary nodule within the visualized right lower lobe. This was also partially visualized on the comparison study and does not appear significantly changed and therefore most likely reflects a benign entity. Please note that all CT scans at this facility use dose modulation, iterative reconstruction, and/or weight-based dosing when appropriate to reduce radiation dose to as low as reasonably achievable. Dictated by Ken Goldberg MD @ 03/11/2024 1:28:54 PM (Electronically Signed)
--- NOTE | 2024-03-11 08:46 | ED.GENADULT ---
HPI - General Adult General Chief complaint: Neuro Symptoms/Altered Deficit Stated complaint: LT sided facial numbness, losing vision, slurred Time Seen by Provider: 03/11/24 09:03 History of Present Illness HPI narrative: This 73-year-old male comes in reporting left-sided paresthesias and some altered speech. He states that he woke up with these symptoms this morning. Actually he reports feeling off balance for the past couple days. Additionally he had temporary loss of vision in his left eye yesterday. He was able to ambulate here this morning. His speech is a bit slurred. He is taking a baby aspirin daily but did not take 1 this morning. A stroke code was initiated upon arrival. Related Data Home Medications ?Medication ?Instructions ?Recorded ?Confirmed ascorbic acid (vitamin C) 1,000 mg 1 g PO QDAY 04/27/22 03/11/24 tablet aspirin 81 mg capsule 81 mg PO QDAY 04/27/22 03/11/24 blm joint support PO DAILY 04/27/22 10/11/23 calcium citrate 250 mg PO BID 04/27/22 03/11/24 cholecalciferol (vitamin D3) 50 See Rx Instructions PO QDAY 04/27/22 03/11/24 mcg (2,000 unit) capsule coQ10 (ubiquinol) 100 mg capsule 200 mg PO QDAY 04/27/22 03/11/24 cyanocobalamin (vitamin B-12) 500 500 mcg PO QDAY 04/27/22 03/11/24 mcg lozenges omega 800 mg PO DAILY 04/27/22 10/11/23 prasterone (dhea) 50 mg tablet 100 mg PO QDAY 04/27/22 10/11/23 prostate support PO DAILY 04/27/22 10/11/23 pyridoxine (vitamin B6) 100 mg 50 mg PO QDAY 04/27/22 03/11/24 tablet triple boran bones 6 mg PO BID 04/27/22 10/11/23 vit e PO DAILY 04/27/22 10/11/23 vitamin K2 100 mcg capsule 100 mcg PO QDAY 04/27/22 03/11/24 zinc PO 04/27/22 10/11/23 metoprolol tartrate 50 mg tablet 50 mg PO BID 05/19/23 03/11/24 Previous Rx's ?Medication ?Instructions ?Recorded atorvastatin 40 mg tablet 40 mg PO QHS #90 tabs 05/19/23 famotidine 20 mg tablet 20 mg PO BID #180 tabs 05/19/23 testosterone 50 mg/5 gram (1 %) 1 tube transdermal QAM #90 ea 12/25/23 transdermal gel clopidogrel 75 mg tablet (Plavix) 75 mg PO DAILY #30 tabs 03/11/24 Allergies Allergy/AdvReac Type Severity Reaction Status Date / Time ciprofloxacin Allergy Intermediate Depression Verified 03/11/24 09:07 levofloxacin (From Levaquin) Allergy Unknown Depression Verified 03/11/24 09:07 Penicillins Allergy Unknown Verified 03/11/24 09:07 sulfamethoxazole (From AdvReac Verified 03/11/24 09:07 Bactrim) trimethoprim (From Bactrim) AdvReac Verified 03/11/24 09:07 Review of Systems Status of ROS: Reports: 10 or more systems reviewed and unremarkable except as noted in History and below Narrative: Constitutional: No fevers, no weight gain or loss. Eyes: No discharge. Loss of vision in his left eye yesterday briefly. HENT: No congestion, no sore throat, no ear pain. Cardiovascular: No chest pain, no palpitations. Respiratory: No shortness of breath, no wheezes, no cough. Gastrointestinal: No abdominal pain, no vomiting, no diarrhea. Genitourinary: No dysuria, no hematuria. Musculoskeletal: Normal range of motion. Skin: No rashes, no pruritis. Neurological: Sensory and speech changes as described above. No report of weakness but he feels off balance. Endo/Heme/Allergies: No bruising or bleeding. No polydipsia. Pysch: no suicidality, no anxiety, no insomnia. All other systems reviewed and are negative. 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) ?Z95.1 - Presence of aortocoronary bypass graft (ICD-10) Status post laparoscopic appendectomy (09/27/18) ?Z90.49 - Acquired absence of other specified parts of digestive tract (ICD-10) History of tonsillectomy ?Z90.89 - Acquired absence of other organs (ICD-10) History of colonoscopy with polypectomy ?Z98.890 - Other specified postprocedural states (ICD-10) ?Z86.010 - Personal history of colonic polyps (ICD-10) History of cataract extraction (12/17/14) ?Z98.49 - Cataract extraction status, unspecified eye (ICD-10) History of carpal tunnel surgery of right wrist (01/17/19) ?Z98.890 - Other specified postprocedural states (ICD-10) Family History Father GI bleeding Mother High blood pressure Social History Narrative: He lives with his , Fariha, in [place]. 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 Code status is full. He does not smoke. He rarely drinks alcohol. What is your current living situation?: I presently have a place to live Problems where you live: no known problems Problems where you live details: n/a In the past 12 months, utilities in danger of being shut off: no In past 12 months, lack of transportation kept you from medical appts, meetings, work, or getting things needed for daily living: no In the past 12 mos, have been you worried that your food would run out before you had money to buy more?: never true In the past 12 mos, the food you bought just didn't last and you didn't have money to buy more?: never true Smoking Status: Never smoker How often do you have a drink containing alcohol: 2-4 times a month How often do you have six or more drinks on one occasion: Never AUDIT-C Alcohol total score: 2 Non-prescribed substance use: denies use Caffeine: Yes (coffee) How often does anyone, including family, friends and others, physically hurt you: never How often does anyone, including family, friends and others, insult or talk down to you: never How often does anyone, including family, friends and others, threaten you with harm: never How often does anyone, including family, friends and others, scream or curse at you: never Little interest or pleasure in doing things: not at all Feeling down, depressed, or hopeless: not at all service: Yes ([employer]) Exam Narrative: Exam Narrative: Constitutional: Well-developed, well-nourished, no acute distress. HEENT: Normocephalic, atraumatic. Neck: Normal range of motion. Nontender. Supple. Heart: Regular. No murmurs. Normal rate. Intact distal pulses. Lungs: Clear to auscultation. No chest discomfort. No wheezes, rhonchi, or rales. Abdomen: Normal bowel sounds. Nontender. No rebound tenderness. Genitalia: Deferred. Back: No midline tenderness. Normal range of motion. Extremities: Normal range of motion. No injury. Skin: Intact. No rash. Warm. No erythema or pallor. Neurologic: Alert and oriented. Visual kirk are intact. No facial asymmetry. Tongue is midline. [id number] is normal. No pronator drift. Software Test Analyst strength is equal bilaterally. Able to raise each leg from the bed. Speech is mildly slurred but easily understandable. Psychiatric: No suicidality. No anxiety or depression. No insomnia. Nursing notes and vitals signs are reviewed. Const: Vital Signs, click to edit/add: Vital Signs - 24 hr 03/11/24 08:22 03/11/24 08:50 03/11/24 08:50 Pulse Rate Pulse Rate [Pulse Oximeter] 86 75 Respiratory Rate 14 14 Blood Pressure Blood Pressure [Ri ght Upper Arm] 179/82 H 153/78 H Pulse Oximetry 96 95 95 Oxygen Delivery Me thod Room Air 03/11/24 08:51 03/11/24 08:51 03/11/24 08:53 Pulse Rate Pulse Rate [Pulse Oximeter] 76 Respiratory Rate 14 Blood Pressure Blood Pressure [Ri ght Upper Arm] 154/85 H Pulse Oximetry 94 96 96 Oxygen Delivery Me thod Room Air 03/11/24 09:00 03/11/24 09:01 03/11/24 09:15 Pulse Rate Pulse Rate [Pulse Oximeter] Respiratory Rate Blood Pressure Blood Pressure [Ri ght Upper Arm] Pulse Oximetry 95 95 96 Oxygen Delivery Me thod 03/11/24 09:16 03/11/24 09:30 03/11/24 09:35 Pulse Rate 71 63 Pulse Rate [Pulse Oximeter] Respiratory Rate Blood Pressure Blood Pressure [Ri ght Upper Arm] Pulse Oximetry 96 92 96 Oxygen Delivery Me thod 03/11/24 09:45 03/11/24 09:48 03/11/24 10:00 Pulse Rate 72 65 68 Pulse Rate [Pulse Oximeter] Respiratory Rate Blood Pressure 144/79 H Blood Pressure [Ri ght Upper Arm] Pulse Oximetry 95 96 97 Oxygen Delivery Me thod 03/11/24 10:01 03/11/24 10:15 03/11/24 10:16 Pulse Rate 64 65 68 Pulse Rate [Pulse Oximeter] Respiratory Rate Blood Pressure 134/76 139/82 Blood Pressure [Ri ght Upper Arm] Pulse Oximetry 97 95 95 Oxygen Delivery Me thod 03/11/24 10:17 03/11/24 10:30 03/11/24 10:31 Pulse Rate 72 66 77 Pulse Rate [Pulse Oximeter] Respiratory Rate Blood Pressure 138/79 Blood Pressure [Ri ght Upper Arm] Pulse Oximetry 95 97 95 Oxygen Delivery Me thod 03/11/24 10:32 03/11/24 11:17 03/11/24 11:18 Pulse Rate 68 71 Pulse Rate [Pulse Oximeter] Respiratory Rate Blood Pressure 146/77 H Blood Pressure [Ri ght Upper Arm] Pulse Oximetry 96 96 Oxygen Delivery Me thod 03/11/24 11:30 03/11/24 11:31 Pulse Rate 65 67 Pulse Rate [Pulse Oximeter] Respiratory Rate Blood Pressure 128/78 Blood Pressure [Ri ght Upper Arm] Pulse Oximetry 98 98 Oxygen Delivery Me thod Course Vital Signs Vital signs: Initial Vital Signs Pulse Rate 86 03/11/24 08:22 Respiratory Rate 14 03/11/24 08:22 Blood Pressure 179/82 H 03/11/24 08:22 Blood Pressure Mean 114 H 03/11/24 08:22 Blood Pressure Position Sitting 03/11/24 08:22 Pulse Oximetry 96 03/11/24 08:22 Oxygen Delivery Method Room Air 03/11/24 08:22 Vital Signs Pulse Rate 86 03/11/24 08:22 Respiratory Rate 14 03/11/24 08:22 Blood Pressure 179/82 H 03/11/24 08:22 Pulse Oximetry 96 03/11/24 08:22 Oxygen Delivery Method Room Air 03/11/24 08:22 Pulse Rate 67 03/11/24 11:31 Respiratory Rate 14 03/11/24 08:51 Blood Pressure 128/78 03/11/24 11:31 Pulse Oximetry 98 03/11/24 11:31 Oxygen Delivery Method Room Air 03/11/24 08:51 Medications Administered Medications: Discontinued Medications Generic Name Dose Route Start Last Admin Trade Name Freq PRN Reason Stop Dose Admin Lorazepam 0.5 mg 03/11/24 10:34 03/11/24 10:38 Lorazepam 2 Mg/Ml Inj IV 03/11/24 10:35 0.5 mg ONCE ONE Administration Medical Decision Making MDM Narrative Medical decision making narrative: This patient comes in with altered speech and sensation as described above. A stroke code was initiated and Dr. Alas from Neurology became involved early on. The patient's neurologic exam is otherwise completely normal. He did have CT and CTA imaging of head and neck done and this was followed by MRI. These all showed reassuring results. Dr. Alas stated that this could be a TIA. 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 The patient's symptoms have completely resolved. Lab Data Labs: Lab Results 03/11/24 03/11/24 Range/Units 08:38 09:21 WBC 6.40 (4.50-11.00) K/uL RBC 5.98 H (4.30-5.90) m/uL Hgb 16.7 (13.5-17.5) gm/dL Hct 53.2 H (37.0-53.0) % MCV 89 (80-100) fL MCH 28 (26-34) pg MCHC 31 L (32-36) gm/dL RDW Coeff of Lida 14.3 (11.5-15.5) % Plt Count 153 (140-440) K/uL Neut % (Auto) 70.2 (42.0-72.0) % Lymph % (Auto) 19.8 L (20-44) % [place] % (Auto) 7.3 (0.0-11.0) % Eos % (Auto) 1.6 (0.0-7.0) % Baso % (Auto) 0.9 (0.0-3.0) % Neut # (Auto) 4.49 (1.7-7.0) K/uL Lymph # (Auto) 1.30 (0.90-2.90) K/uL [place] # (Auto) 0.50 (0.00-0.90) K/UL Eos # (Auto) 0.10 (0.00-0.50) K/uL Baso # (Auto) 0.06 (0.00-0.30) K/uL Abs Immat Gran (auto) 0.01 (0.00-0.30) K/uL Imm/Tot Granulo (auto) 0.2 % Sodium 137 (135-149) mmol/L Potassium 4.7 (3.6-5.1) mmol/L Chloride 103 (96-114) mmol/L Carbon Dioxide 25 (20-32) mmol/L Anion Gap 9 (7-15) mEq/L BUN 19 (7-30) mg/dL Creatinine 1.2 (0.5-1.5) mg/dL Estimated Creat Clear 57.52 Estimated GFR 63 ml/min Glucose 105 (60-115) mg/dL Calcium 9.3 (8.4-10.6) mg/dL POC Troponin I 0.01 (0.01-0.04) ng/ml Imaging Data CT scan - head: Radiologist's impression: Stable age-related and chronic small-vessel disease changes of the brain without acute intracranial abnormality. MRI - head: Radiologist's impression: 1. No acute intracranial process. 2. Stable mild chronic ischemic microvascular disease. ECG Data Attestation: I personally reviewed and interpreted this ECG as follows: Interpretation: Normal sinus rhythm. Rate is 91 beats per minute. There are no ST or T-wave abnormalities. Discharge Plan Discharge Clinical Impression: Transient ischemic attack Additional Instructions: Take Plavix as prescribed. Follow up with primary physician for cardiac monitoring. Continue other medications as indicated. Return if symptoms are recurrent or worsening. Prescriptions: New clopidogrel [Plavix] 75 mg tablet 75 mg PO DAILY Qty: 30 2RF No Action metoprolol tartrate 50 mg tablet 50 mg PO BID famotidine 20 mg tablet 20 mg PO BID Qty: 180 3RF atorvastatin 40 mg tablet 40 mg PO QHS Qty: 90 3RF aspirin 81 mg capsule 81 mg PO QDAY blm joint support 715 mg PO DAILY calcium citrate 250 mg calcium tablet 250 mg PO BID cholecalciferol (vitamin D3) 50 mcg (2,000 unit) capsule See Rx Instructions PO QDAY Rx Instructions: 2 am, 1 pm orally every day; prasterone (dhea) 50 mg tablet 100 mg PO QDAY omega 800 mg PO DAILY prostate support PO DAILY triple boran bones 3 mg 6 mg PO BID coQ10 (ubiquinol) 100 mg capsule 200 mg PO QDAY cyanocobalamin (vitamin B-12) 500 mcg lozenge 500 mcg PO QDAY pyridoxine (vitamin B6) 100 mg tablet 50 mg PO QDAY ascorbic acid (vitamin C) 1,000 mg tablet 1 g PO QDAY vit e 100 mcg PO DAILY vitamin K2 100 mcg capsule 100 mcg PO QDAY zinc 22 mg PO testosterone 50 mg/5 gram (1 %) gel 1 tube transdermal QAM Qty: 90 1RF Follow Up/Referrals: Lyle Perry MD [Primary Care Provider] -
--- OUTSIDE RECORDS SUMMARY | 2024-03-11 09:05 | XMS_ITS | Clinical Summary ---
[facility] Address [address], [place] [address] Care Team Providers Care Scientific Director Name Role Phone Lyle Perry MD Primary Care Provider [phone] Source Comments You are receiving this document as you are listed as the primary care provider,follow-up provider, or the patient has been referred to you for consultation.This is in compliance with the Medicare and[facility] EHR Incentive Program,which states Providers who transition their patient to another setting of careor provider of care or refers their patient to another provider of care shouldprovide summary care record for each transition of care or referral. [employer] Allergies Active Allergy Reactions Criticality Noted Date [...] TABS Take 1 Capsule by mouth. Active [place]-3 Fatty Acids ([employer] OMEGA-3 GUMMY FISH/DHA) 113.5 [...] age to complete this topic Care Teams Scientific Director Relationship Specialty Start Date End Date Lyle Perry MD [address] [place] [address] PCP - General Family Practice 12/30/22
--- NOTE | 2024-03-11 09:35 | CRLHL7_ITS ---
For Patients: As a result of the Century Cures Act, medical imaging exams and procedure reports are released immediately into your electronic medical record. You may view this report before your referring provider. If you have questions, please contact your health care provider. Indication: Left facial numbness. Technique: Multiplanar, multisequence MRI of the brain was performed without intravenous contrast. Comparison: CT head 03/11/2024. MR brain 08/25/2021. Findings: The corpus callosum, pituitary gland clivus appear intact. Craniocervical junction appears preserved. No parenchymal restricted diffusion. Stable foci of susceptibility artifact along the frontal horns of the lateral ventricles, corresponding to calcification noted on prior CT. The ventricles are proportionate to the cerebral sulci. The 4th ventricle appears midline. The basal cisterns appear patent. No abnormal extra-axial fluid collection identified. Mild parenchymal volume loss. Mild scattered T2 FLAIR hyperintense foci within the subcortical and periventricular white matter, favored to represent chronic ischemic microvascular disease. There is no intracranial mass, abnormal mass-effect or midline shift identified. Major intracranial vascular flow voids appear grossly intact. Thinning of the ocular lenses. Moderate right mastoid effusion. Impression: 1. No acute intracranial process. 2. Stable mild chronic ischemic microvascular disease. Dictated by Cosme Pascual MD @ 03/11/2024 11:23:16 AM (Electronically Signed)
[2024-03-11 09:40] LABS: Basophils Absolute Auto 0.06 K/uL (0.00-0.30); Basophils Percent Auto 0.9 % (0.0-3.0); Eosinophils Percent Auto 1.6 % (0.0-7.0); Hematocrit 53.2 % (37.0-53.0); Hemoglobin* 16.7 gm/dL (13.5-17.5); Immature Granulocytes Abs Auto 0.01 K/uL (0.00-0.30); Immature Granulocytes Pct Auto 0.2 %; Lymphocytes Percent Auto 19.8 % (20-44); Mean Corpuscular HGB Conc 31 gm/dL (32-36); Mean Corpuscular Hemoglobin 28 pg (26-34); Mean Corpuscular Volume 89 fL (80-100); Monocytes Percent Auto 7.3 % (0.0-11.0); Neutrophils Absolute Auto 4.49 K/uL (1.7-7.0); Neutrophils Percent Auto 70.2 % (42.0-72.0); Platelet Count* 153 K/uL (140-440); RDW Coefficient of Variation % 14.3 % (11.5-15.5); Red Blood Count 5.98 m/uL (4.30-5.90)
[2024-03-11 09:41] LABS: Slide Review Reflex No
[2024-03-11 09:50] LABS: Chloride* 103 mmol/L (96-114)
[2024-03-11 09:51] LABS: Potassium* 4.7 mmol/L (3.6-5.1); Sodium* 137 mmol/L (135-149)
[2024-03-11 09:53] LABS: Creatinine* 1.2 mg/dL (0.5-1.5); Est. Creatinine Clearance* 57.52; Estimated Glomerular Filt Rate 63 ml/min
[2024-03-11 09:54] LABS: Anion Gap 9 mEq/L (7-15); Blood Urea Nitrogen* 19 mg/dL (7-30); Calcium* 9.3 mg/dL (8.4-10.6); Carbon Dioxide* 25 mmol/L (20-32); Glucose* 105 mg/dL (60-115)
[2024-03-11] MEDS: LORazepam 2 MG/ML inj 0.5 MG IV (10:38)
[2024-03-11 10:49] LABS: Troponin, Point-of-Care* 0.01 ng/ml (0.01-0.04)
== END 2024-03-11 12:19 | disposition home or self-care (01) ==
PROVIDERS: Emergency Provider Emergency Medicine Emergency Medical Services; PCP Family Medicine
DX: G45.9 Transient cerebral ischemic attack, unspecified (principal)
CPT/HCPCS: 36415; 70450; 70496; 70498; 70551; 80048; 84484; 85025; 93005; 96374; 99284; 99285; 99291; J2060; Q9967

== ENCOUNTER 2024-04-01 15:49 | Outpatient (CLI) | payer MEDICARE, SELFPAY ==
--- OUTSIDE RECORDS SUMMARY | 2024-04-01 15:52 | XMS_ITS | Clinical Summary ---
Author Organization [facility] Address [address], [place] [address] Care Team Providers Care Sludge Control Attendant Name Role Phone Lyle Perry MD Primary Care Provider [phone] Source Comments You are receiving this document as you are listed as the primary care provider,follow-up provider, or the patient has been referred to you for consultation.This is in compliance with the Medicare and[facility] EHR Incentive Program,which states Providers who transition their patient to another setting of careor provider of care or refers their patient to another provider of care shouldprovide summary care record for each transition of care or referral. [employer] Allergies Active Allergy Reactions Criticality Noted Date [...] TABS Take 1 Capsule by mouth. Active [place]-3 Fatty Acids ([employer] OMEGA-3 GUMMY FISH/DHA) 113.5 [...] 72 08/02/2021 3:17 PM CDT Temperature 37.4 C (99.4 F) 03/01/2021 1:16 PM CDT Respiratory Rate - - Oxygen Saturation 98% [...] age to complete this topic Care Teams Sludge Control Attendant Relationship Specialty Start Date End Date Lyle Perry MD [address] [place] [address] PCP - General Family Practice 12/30/22
== END 2024-04-01 15:50 | disposition home or self-care (01) ==
LOC: LKVREF 15:50
PROVIDERS: PCP Family Medicine; Visit Provider Family Medicine
DX: R51.9 Headache, unspecified (principal); R20.0 Anesthesia of skin; Z11.9 Encounter for screening for infectious and parasitic diseases, unspecified
CPT/HCPCS: 86618

== ENCOUNTER 2024-04-17 16:19 | Outpatient (CLI) | payer MEDICARE, SELFPAY ==
--- NOTE | 2024-04-17 16:45 | CRLHL7_ITS ---
For Patients: As a result of the Century Cures Act, medical imaging exams and procedure reports are released immediately into your electronic medical record. You may view this report before your referring provider. If you have questions, please contact your health care provider. Indication: CHRONIC SINUSITIS Technique: Performed without IV contrast Comparison: 03/11/2024 CT brain and MRI brain Findings: Frontal sinuses: Mucous retention cyst right frontal sinus measures 1 cm. Mild mucosal thickening within the right frontal sinus. Left frontal sinus clear. Ethmoid sinuses: Clear. Maxillary sinuses: Mild mucosal thickening within the maxillary sinuses. Mucous retention cyst inferior left maxillary sinus measures 8 millimeters. The maxillary sinus drainage pathways are patent on both sides. Sphenoid sinuses: Clear, including both sphenoethmoidal recesses. Nasal Cavity: Nasal septum relatively midline. No nasal polyps. Degenerative changes at the temporomandibular joints. Small amount of fluid within the right mastoid air cells. Incidental basal ganglia calcifications again noted along with calcifications in the periventricular white matter. Impression: 1. Right frontal sinus disease and bilateral maxillary sinus disease, mild. 2. Midline nasal septum. Patent sinus drainage pathways. Mild right mastoid effusion. Please note that all CT scans at this facility use dose modulation, iterative reconstruction, and/or weight-based dosing when appropriate to reduce radiation dose to as low as reasonably achievable. Dictated by Harmeet Almeida MD @ 04/19/2024 1:27:12 PM (Electronically Signed)
== END 2024-04-17 16:20 | disposition home or self-care (01) ==
PROVIDERS: PCP Family Medicine; Visit Provider Family Medicine
DX: J32.9 Chronic sinusitis, unspecified (principal); J32.0 Chronic maxillary sinusitis; J34.2 Deviated nasal septum; R51.9 Headache, unspecified
CPT/HCPCS: 70486

== ENCOUNTER 2024-06-14 07:32 | Outpatient (CLI) | payer MEDICARE, SELFPAY | END 2024-06-14 07:33 | disposition home or self-care (01) | LOC: NFLDREF 06-21 02:29 | PROVIDERS: PCP Family Medicine; Referring Provider Family Medicine; Visit Provider Family Medicine | DX: E34.9 Endocrine disorder, unspecified (principal); R73.03 Prediabetes; I10 Essential (primary) hypertension; R53.83 Other fatigue; I25.10 Atherosclerotic heart disease of native coronary artery without angina pectoris; Z12.5 Encounter for screening for malignant neoplasm of prostate | CPT/HCPCS: 80053; 84270; 84402; 84403; G0103 ==

== ENCOUNTER 2024-07-10 10:26 | Emergency (ER) | payer MEDICARE, SELFPAY ==
[2024-07-10] VITALS (90 sets, daily range): BP systolic 100–146; BP diastolic 67–105; PULSE 60–84; RESP 10–38; TEMP 36.6; O2SAT 91–98; BMI 29.3
--- OUTSIDE RECORDS SUMMARY | 2024-07-10 10:29 | XMS_ITS | Clinical Summary ---
Author Organization [facility] Address [address], [place] [address] Care Team Providers Care Collateral Specialist Name Role Phone Lyle Perry MD Primary Care Provider [phone] Source Comments You are receiving this document as you are listed as the primary care provider,follow-up provider, or the patient has been referred to you for consultation.This is in compliance with the Medicare and[facility] EHR Incentive Program,which states Providers who transition their patient to another setting of careor provider of care or refers their patient to another provider of care shouldprovide summary care record for each transition of care or referral. [employer] Allergies Active Allergy Reactions Criticality Noted Date Comments Ciprofloxacin Myalgias 03/08/2017 depression Levofloxacin 01/16/2020 Penicillins 01/16/2020 Medications aspirin 81 MG chewable tablet Chew and swallow 81 mg by mouth. Active atorvastatin (LIPITOR) 40 MG tablet 1 Active cholecalciferol (VITAMIND3) 50 MCG (2000 UT) tablet Take 2,000 Units by mouth. Active metoprolol tartrate (LOPRESSOR) 25 MG tablet 1 Active cyanocobalamin 500 MCG tablet Take 500 mcg by mouth. Active famotidine (PEPCID) 20 MG tablet 1 Active tocopheryl (VITAMIN E) 400 units capsule Take 400 Units by mouth. Active Riboflavin 400 MG TABS Take 1 Capsule by mouth. Active [place]-3 Fatty Acids ([employer] OMEGA-3 GUMMY FISH/DHA) 113.5 MG CHEW Daily Active ascorbic acid (AKA VITAMIN C) 1000 MG tablet Take 1,000 mg by mouth. Active Calcium Citrate 1040 MG Take 2 Tablets by mouth. Active Glucosamine-Chond roit-Vit C-Mn (GLUCOSAMINE 1500 COMPLEX OR) Take 1,000 mg by mouth. Active Nutritional Supplements (DHEA OR) Take 100 mg by mouth. Active meclizine (ANTIVERT) 25 MG tablet TAKE ONE TABLET BY MOUTH EVERY EIGHT HOURS NEEDED 1 Active diazePAM (VALIUM) 5 MG tablet TAKE ONE TABLET BY MOUTH TWICE DAILY NEEDED FOR DIZZINESS / ASSOCIATED NAUSEA 1 Active metoprolol-hydroc hlorothiazide (DUTOPROL) 25-12.5 MG ER tablet 9 Active testosterone (ANDROGEL) 50 MG/5GM (1%) gelIndications:Lo w testosterone in male Apply 1 Packet (50 mg of testosterone) to skin daily. 30 Packet 5 3 Active Active Problems No known active problems Immunizations Immunization Administration Dates Next Due Td, Preservative Free 11/26/2004 Tdap 06/12/2017 Social History Tobacco Use Types Packs/Day Years Used Date Smoking Tobacco: Never Smokeless Tobacco: Never PHQ-2 Answer Date Recorded PHQ-2 Score 2 03/01/2021 Sex and Gender Information Value Date Recorded Sex Assigned at Not on file Legal Sex Male 5:30 AM CDT Gender Identity Not on file Sexual Orientation [...] 1950 Medicare Welcome Visit 1950 Cholesterol 1984 Pneumococcal 50+ Yrs (1 of 1 - PCV) 11/08/1999 Zoster/Shingles (1 of 2) 11/08/1999 COVID-19 Vaccine (1 - 2023-2 5 season) 2024 Influenza (#1) [...] on patient's age to complete this topic Meningococcal B Aged Out No longer el igible based on patient's age to complete this topic Insurance MEDICARE ADVANTAGE UHC MEDICARE ADVANTAGE Care Teams Collateral Specialist Relationship Specialty Start Date End Date Lyle Perry MD [address] [place] [address] PCP - General Family Practice 12/30/22
--- OUTSIDE RECORDS SUMMARY | 2024-07-10 10:29 | XMS_ITS | Clinical Summary ---
Author Organization [employer] Address [address] [place] [address] Care Team Providers Care Computational Sciences Professor Name Role Phone Lyle Perry MD Primary Care Provider Allergies Active Allergy Reactions Criticality Noted Date Comments Levofloxacin Myalgia 08/18/2023 Penicillins *Unknown - Childhood Rxn Tolerated Ancef on previous admission Medications Cholecalciferol, Vitamin D3, 2,000 unit tablet Take 2,000 Units by mouth once daily. 4 tabs daily Active CALCIUM CITRATE/VITAMIN D2 (CALCIUM CITRATE WITH D ORAL) Take 2 Tabs by mouth once daily. Active cyanocobalamin (VITAMIN B12) 500 mcg tablet Take 500 mcg by mouth once daily. Active ascorbic acid, vitamin C, (VITAMIN C) 1,000 mg tablet Take 1,000 mg by mouth once daily. Active vitamin e 400 unit capsule Take 400 Units by mouth once daily. Active aspirin chewable 81 mg chewable tablet Take 81 mg by mouth once daily with a meal. Active omega-3 fatty acids (FISH OIL) cap Take 1 Capsule by mouth two times daily. Active testosterone 1%, 50 mg/5 g, (ANDROGEL/VOGELX O) topical gel Apply 1 Packet on dry, clean, hairless skin once daily. 1 Active atorvastatin (LIPITOR) 40 mg tablet 1 Tablet (40 mg) once daily with evening meal. 0 3 Active famotidine (Pepcid) 20 mg tablet Take 20 mg by mouth two times daily. Active nitroglycerin (NITROSTAT) 0.4 mg sublingual tabletIndication s:Coronary artery disease involving capitan grande band coronary artery without angina pectoris, unspecified whether capitan grande band or transplanted heart Place 1 Tablet (0.4 mg) under the tongue every 5 minutes if needed for Chest Pain for a maximum 3 tablets in 15 minutes. Call 911 if symptoms not improving after the first dose. 24 Tablet 11/15/2022 4:57 PM CDT 3 Active medication order composer Per pt. K2, Zinc, TripleBorn, prostate health, DHEA, BLM joint, 04/18/23 3 Active pyridoxine, vitamin B6, (Vitamin B-6) 100 mg tablet 0 Active riboflavin, vitamin B2, 400 mg tab Take 1 Capsule by mouth. Active vitamin K2 100 mcg cap 0 Active zinc sulfate (ZINC-220 ORAL) Take 1 Tablet by mouth once daily. Active polyethylene glycol-electroly te (GOLYTELY) 236-22.74-6.74 -5.86 gram suspensionIndica tions:Encounter for screening colonoscopy Drink 2 liters (half the bottle) the day before colonoscopy and 2 liters (remaining prep) 6 hours prior to colonoscopy appointment. 4000 mL 4 Active lactobacillus combination no.4 (Probiotic) 3 billion cell cap Take 1 Capsule by mouth once daily. Active Prasterone, DHEA, (DHEA) 50 mg cap 8 Active clopidogreL (PLAVIX) 75 mg tabletIndication s:Coronary artery disease involving capitan grande band coronary artery without angina pectoris, unspecified whether capitan grande band or transplanted heart TAKE 1 TABLET BY MOUTH ONCE DAILY 60 Tablet 1 4 Active metoprolol tartrate (LOPRESSOR) 25 mg tabletIndication s:Coronary artery disease involving capitan grande band coronary artery without angina pectoris, unspecified whether capitan grande band or transplanted heart Take 1 Tablet (25 mg) by mouth two times daily. 180 Tablet 3 4 Active azelastine 137 mcg/actuation (ASTELIN) nasal sprayIndications :Allergic rhinitis, unspecified seasonality, unspecified trigger Inhale 2 Sprays into affected nostril(s) two times daily. 30 mL 2 4 Active fluticasone (50 mcg per actuation) nasal solution (FLONASE)Indicat ions:Allergic rhinitis, unspecified seasonality, unspecified trigger Inhale 2 Sprays into affected nostril(s) once daily. 15 mL 3 4 Active Active Problems Problem Noted Date Diagnosed Date S/P TAVR (transcatheter aortic valve replacement ) 02/27/2024 Severe aortic stenosis 08/23/2023 Cardiovascular symptoms 11/15/2022 CHF (congestive heart failur e), NYHA class II, chronic, combined 08/18/2022 Stage 3a chronic kidney disease 08/18/2022 HTN (hypertension) 02/17/2022 Transient ischemic attack 09/30/2021 Moderate aortic stenosis 09/17/2021 History of transient ischemic attack (TIA) 09/17 Kidney stones 10/10/2018 S/P CABG x 3 10/23/2017 Overview (10/23/2017): 10/15/17 chronic total occlusions of the ostial LAD and large RPLA collateralized with severe diffuse RCA/PDA disease 10/19/2017 CAB X3 with HERRERA Coronary artery disease 10/18/2017 Overview (11/15/2022): - 10/15/17 angio: chronic total occlusions of the ostial LAD and large RPLA collateralized with severe diffuse RCA/PDA disease - 10/19/2017 CAB X3: HERRERA - LAD, saphenous vein sequential graft to posterior descending and posterolateral branch of RCA - angiogram 11/15/22: s/p ELIAS pCX (stent extends into LM to cover LCX ostium); s/p ELIAS OM1 - Dyslipidemia 10/18/2017 NSTEMI (non-ST elevated myocardial infarction) 0 10/14/2017 History of colon polyps 11/04/2016 Overview (11/28/2023): Colonoscopy 11/2023 3-TA, repeat in 5 years Diverticulosis of large intestine without hemorr jefry 11/04/2016 Melanosis coli 11/04/2016 Colon polyp 07/23/2010 Overview (03/12/2019): Colonoscopy 07/2010 polyps repeat in 3 years Colonoscopy 09/2013 polyps repeat in 3 years Colonoscopy 11/2016 multiple colon polyps, recommend genetic testing and repeat colonoscopy in 2 years Colonoscopy 03/2019 polyps, repeat in 3 years Aortic valve stenosis Encounters Date Type Department Care Team Description 05/23/2024 2:46 PM RUSSIAN TEACHER - 05/23/2024 11:59 PM RUSSIAN TEACHER [facility] [address] [place] [address] Beltran Harrell MD Iverson, Ryan, PT Dizziness; Imbalance 05/23/2024 Travel 04/25/2024 10:40 AM RUSSIAN TEACHER Office Visit [facility] [address] [place] [id number] Beltran Harrell MD Nose Problem (Chronic sinus infection and cyst in sinuses ) 04/25/2024 Travel 04/17/2024 Orders Only [facility] Scanner 1 scan: (1-Ord) [facility], CT SINUS W/O CONTRAST, 04/17/2024 from Last 3 Months Immunizations Name Administration Dates Next Due Td, Preservative Free (age >= 7 Years) 5 Tdap 06/12/2017 Family History Medical History Relation Name Comments Other Father GI bleed Hypertension Mother Relation Name Status Comments Father Mother Alive Social History Tobacco Use Types Packs/Day Years Used Date Smoking Tobacco: Never Smokeless Tobacco: Never Tobacco Cessation:Counseling Given: Yes Alcohol Use Standard Drinks/Week Comments Yes 0 (1 standard drink = 0.6 oz pur e alcohol) Rarely PHQ-2 Answer Date Recorded PHQ-2 TOTAL SCORE 0 11/06/2023 Social Connections Answer Date Recorded Do you often feel lonely or isolated from those around you? 0 11/06/2023 Financial Resource Strain Answer Date R ecorded Difficulty of Paying Living Expenses 3 11/06/2023 Difficulty of Paying Living Expenses Not on file 11/06/2023 Food Insecurity Answer Date Recorded Do you worry your food will run out before you are able to buy more? 1 11/06/2023 Transportation Needs Answer Date Record ed Does lack of transportation keep you from medica l appointments? 1 11/06/2023 Does lack of transportation keep you from work, meetings or getting things that you need? 1 11/06/2023 Housing Stability Answer Date Recorded What is your housing situation today? 1 11/06/2023 Interpersonal Safety Answer Date Record ed Are you being hit, kicked, p ushed or yelled at (see row info)? No 08/23/2023 Interpersonal Safety Abuse 12 - 18 Not on file 08/23/2023 Interpersonal Safety Ambulatory Vulnerability No t on file 08/23/2023 Utilities Answer Date Recorded Do you have trouble paying f or utilities (for example, heat, electricity, water, phone)? 1 11/06/2023 Sex and Gender Information Value Date Recorded Sex Assigned at Not on file Legal Sex Male 6:26 AM RUSSIAN TEACHER Gender Identity Not on file Sexual Orientation Not on file Obstetrics History Last Filed Vital Signs Vital Sign Reading Time Taken Comments Blood Pressure 156/88 02/27/2024 2:49 PM CDT Pulse 78 02/27/2024 2:49 PM CDT Temperature 37.6 C (99.7 F) 08/24/2023 9:00 AM CDT Respiratory Rate 16 08/24/2023 12:20 PM CDT Oxygen Saturation 96% 02/27/2024 2:49 PM CDT Inhaled Oxygen Concentration - - Weight 93.9 kg (207 lb) 02/27/2024 2:49 PM CDT Height 182.9 cm (6') 11/06/2023 4:04 PM CDT Body Mass Index 28.07 11/06/2023 4:04 PM CDT Plan of Treatment Health Maintenance Due Date Last Done Comments Hepatitis C screening for ag e 18-79 11/08/1967 Pneumococcal series for age 50+ (1 of 2 - PCV) 1968 Zoster (shingles) series for age 50+ (1 of 2) 11/08/1999 RSV vaccine for adults or (1 - Risk 60-74 years 1-dose series) 2009 Medicare Wellness for age 65+ 2014 COVID-19 vaccine series ( - season) 2024 Influenza for age 65+ 01/07/2024 BMI (ht and wt on same day) for age 18+ 11/05/2024 11/06/2023, 09/29/2023, 08/18/2023, Additional history exists Depression screening for age 12+ 11/06/2024 2023, 11/06/2023, 11/14/2017 Tetanus booster 06/12/2027 06/12/2017, 11/26/2004 Lipids for age 45-75 11/16/2027 11/15/2022, 10/16/19 18 Colonoscopy through age 75 11/23/202811/23, 11/24/2023, 11/24/2023, Additional history exists Tdap Completed 06/12/2017 Medical Devices Implanted Type Area [employer] Device Identifier Shelf Expiration Date Model / Serial / Lot Stent Uret [id number] Silhouette - [id number] Implanted:Qty: 1 on 11/29/2018 by Vladimir Elliott MD at [facility] Left: [employer] 04/08/2021 [id number] / / [id number] Procedures Procedure Name Priority Date/Time Associated Diagnosis Comments SCAN-CT INTERPRETATION 12:00 AM RUSSIAN TEACHER COLONOSCOPY SCREENING Routine 11/24/2023 8:21 AM CDT Polyp of colon, unspecified part of colon, unspecified type LIPID PANEL Add On 11/15/2022 7:35 AM CDT from Last 3 Months or Most Recently Relevant to Health Maintenance Results * SCAN-CT INTERPRETATION (04/17/2024 12:00 AM RUSSIAN TEACHER) Anatomical Region Laterality Modality Other us Scanner OTHER Final Result * SCAN-COLONOSCOPY (11/24/2023 12:00 AM CDT) us Scanner OTHER Final Result * Lipid Panel (11/15/2022 7:35 AM CDT) CHOLESTEROL,TOTAL 119 100 - 199 mg/dL 11/15/2022 8:13 AM CDT [facility] Comment: Cholesterol, Total Reference Ranges Desirable <200 mg/dL Borderline 200-239 mg/dL High >=240 mg/dL TRIGLYCERIDES 119 <150 mg/dL 11/15/2022 8:13 AM CDT [facility] HDL CHOLESTEROL 43 >40 mg/dL 8:13 AM CDT [facility] NON-HDL CHOLESTEROL 76 <145 mg/dl 11/15/2022 8:13 AM CDT [facility] CHOL/HDL RATIO 2.77 <4.50 11/15/2022 8:13 AM CDT [facility] LDL CHOLESTEROL 52 <=130 mg/dL 11/15/2022 8:13 AM CDT [facility] VLDL CHOLESTEROL 24 <=30 mg/dL 11/15/2022 8:13 AM CDT [facility] PROVIDER ORDERED STATUS FASTING 11/15/2022 8:13 AM CDT [facility] Blood BLOOD SPECIMEN / Unknown Venipuncture / Unknown 11/15/2022 7:35 AM CDT 11/15/2022 7:42 AM CDT us Kalee Marquez NP CHEMISTRY Final Result [facility] [address] [place] [address], from Last 3 Months or Most Recently Relevant to Health Maintenance Insurance MEDICARE PART A HB ONLY [facility] MR/MSHO MEDICARE PROVIDER BASED [facility] [place] Advance Directives * Full Code (Latest Code Status on File) Date Activated Date Inactivated Comments 08/23/2023 9:17 AM 08/24/2023 5:31 PM Question Answer Comments Code Status Discussion: Reviewed Preferences * Full Code Date Activated Date Inactivated Comments 11/15/2022 8:34 AM 11/16/2022 2:30 PM Question Answer Comments Code Status Discussion: Reviewed Preferences * Full Code Date Activated Date Inactivated Comments 11/15/2022 7:26 AM 11/15/2022 8:34 AM Question Answer Comments Code Status Discussion: Unable to Assess Preferences, Provider to review later * Full Code Date Activated Date Inactivated Comments 11/29/2018 11:51 AM 11/29/2018 6:34 PM * Full Code Date Activated Date Inactivated Comments 10/14/2017 3:28 PM 10/23/2017 3:36 PM Care Teams Computational Sciences Professor Relationship Specialty Start Date End Date Lyle Perry MD [address] [place] [address] PCP - General Family Practice 10/07/20
--- OUTSIDE RECORDS SUMMARY | 2024-07-10 10:29 | XMS_ITS | Data Portability ---
Author Organization [place] [facility] - [facility] Address [address] [place] [address] Assessment Encounter Date Assessment Date Assessment LastModified by Organization Details LastModified Time 04/12/2024 04/12/2024 ASSESSMENT: Patient is a good candidate for conservative care and the prognosis is for a favorable outcome that achieves the patients' goals. We discussed etiology, activity modifications, home care, and other treatment options. Initially, it is recommended that the patient receive in-office treatment 1 times per week for 8 weeks at which time a re-evaluation will be performed to determine an appropriate change in plan. Initially, treatment will focus on joint manipulation to restore range of motion and reduce pain. We will slowly progress to therapeutic exercises and activities to improve function, strength, and stability may also be used as warranted. If the patient is not responding as expected, more invasive procedures will be discussed along with a referral. All considerations above were discussed with the patient and questions answered to satisfaction. If the patient should have any additional questions, or should the condition evolve or worsen, the patient should not hesitate to contact our office. ecram Not available 04/13/2024 08:29:13 Plan of Treatment Reminders Order Date Submit Date Provider Last Modified By Organization Details Last Modified Time Details Appointments None record ed. Lab None record ed. Referral None record ed. Procedures None record ed. Surgeries None record ed. Imaging None record ed. Medication Orders None record ed. Patient TargetsNo targets recorded. Patient InstructionsNo instructions recorded. Reason for Referral None Reported. Problems Name Problem SNOMED Code Status Onset Date Resolution Date Notes Provider Name and Address Organization Details Recorded Time Thoracic segmental dysfunction 224396745 Active 2023 Dawood May DC [address], [place], [address], [facility] 4 08:29:14 Lumbar segmental dysfunction 490816704 Active 2023 Dawood Logan Dominickbhumi CEE [address], [place], [address], [facility] 4 08:29:14 Low back pain 928136041 Active 2023 Dawood Logan Dominickbhumi CEE [address], [place], [address], [facility] 4 08:29:14 Somatic dysfunction of sacral spine 708227655 Active 2023 Dawood Logan Dominickbhumi CEE [address], [place], [address], [facility] 4 08:29:14 Problem Notes None recorded. Procedures Surgical History Date Name Laterality Status Provider Name and Address Organization Details Recorded Time 4 [address]: Spinal manipulation , 3 to 4 regions completed Dawood Logan DominickbhumiCEE [address], [place], [address], [facility] 04/13/2024 08:31:18 Imaging Results None recorded. Procedure Notes None recorded. Medical Equipment None Reported. Vitals None Recorded Social History None recorded. Functional Status None recorded. Mental Status None recorded. Family History Nothing Reported. Medical History No medical history recorded. Past Encounters Encounter ID Performer Location Encounter Start Date Encounter Closed Date Diagnosis/Indication Diagnosis SNOMED-CT Code Diagnosis ICD10 Code Diagnosis Note [id number] Dawood CEE [facility] [address] [place] [phone] 04/12/2024 18:49:32 04/17/2024 16:03:09 Lumbar segmental dysfunction 854069906 M99.03 Low back pain 111164331 M54.50 Somatic dy sfunction of sacral spine 057771106 M99.04 Thoracic s egmental dysfunction 809363505 M99.02 Health Concerns Section Related Observation LastModified by Organization Detai ls LastModified Time None Recorded Concern Status LastModified by Organization Details LastModified Time None Recorded Advance Directives Directive None Recorded Payers Encounter Date Sequence Insurance Name Policy Number Policy Lucas Covered Member ID Lucas Member ID Guarantor Name 04/12/2024 1 [facility] Ryan Miguel Bishop [id number] Ryan Bishop Notes Date Note Type Note Provider Name and Address Organization Details Recorded Time 04/12/2024 text/html HPI - Lumbar SpineReported bypatient.Location: bilateral; With radiation to knee Quality:aching; dull Severity:not changing Timing:gradual Duration:continuous since onset Context:cannot identify Aggravating Factors:standing; walking; weightbearing Alleviating Factors:rest; elevation; post acute care nurse Associated Symptoms:numbness;t ingling Previous PT or Chiropractic:helped significantly Dawood May DC [address] [place] [address], [place], [address], [facility] 04/13/2024 08:32:19
--- NOTE | 2024-07-10 11:04 | CRLHL7_ITS ---
For Patients: As a result of the Century Cures Act, medical imaging exams and procedure reports are released immediately into your electronic medical record. You may view this report before your referring provider. If you have questions, please contact your health care provider. Indication: Chest pain Technique: Chest 1 view Comparison: Chest x-ray 03/09/2021 Findings/Impression: Cardiovascular and mediastinum: Normal heart size with aortic tortuosity. Status post aortic valve replacement. Lungs and pleural space: Low lung volumes without pleural effusion or pneumothorax. Pulmonary cephalization with discoid atelectasis. Slight reticular interstitial prominence in the perihilar regions, possibly minimal interstitial edema. Bones and soft tissues: Status post median sternotomy. Dictated by Cr Harris MD @ 07/10/2024 11:23:45 AM (Electronically Signed)
[2024-07-10] MEDS: MORPHINE 4 MG/ML INJ IVP (11:06)
--- NOTE | 2024-07-10 11:07 | ED.GENADULT ---
HPI - General Adult General Chief complaint: Chest Pain Stated complaint: Pectoral/chest pain Time Seen by Provider: 07/10/24 10:57 History of Present Illness HPI narrative: The patient is a 73 year white male who was shoveling this morning and developed chest pain. Really has not relented it has been a little bit more lateral chest and the now more substernal. Patient denies diaphoresis shortness of breath. He took some mitral that did not really make much difference. He took some Tylenol. He has had a history of a TAVR procedure, he has had coronary bypass graft in a 20 18 x 3 and he has had couple of stents as well these were done at [facility]. Patient denies recent illness or fever, recent chest pain, extremity symptoms. He definitely noted this with exertion and has not relented. He is not diaphoretic. His vital signs look within normal limits. His EKG EKG done on stat presentation shows no acute ST T wave changes by my read. Related Data Home Medications ?Medication ?Instructions ?Recorded ?Confirmed ascorbic acid (vitamin C) 1,000 mg 1 g PO QDAY 04/27/22 06/17/24 tablet aspirin 81 mg capsule 81 mg PO QDAY 04/27/22 06/17/24 blm joint support PO DAILY 04/27/22 06/17/24 calcium citrate 250 mg PO BID 04/27/22 06/17/24 cholecalciferol (vitamin D3) 50 See Rx Instructions PO QDAY 04/27/22 06/17/24 mcg (2,000 unit) capsule coQ10 (ubiquinol) 100 mg capsule 200 mg PO QDAY 04/27/22 06/17/24 cyanocobalamin (vitamin B-12) 500 500 mcg PO QDAY 04/27/22 06/17/24 mcg lozenges omega 800 mg PO DAILY 04/27/22 06/17/24 prasterone (dhea) 50 mg tablet 100 mg PO QDAY 04/27/22 06/17/24 prostate support PO DAILY 04/27/22 06/17/24 pyridoxine (vitamin B6) 100 mg 50 mg PO QDAY 04/27/22 06/17/24 tablet triple boran bones 6 mg PO BID 04/27/22 06/17/24 vit e PO DAILY 04/27/22 06/17/24 vitamin K2 100 mcg capsule 100 mcg PO QDAY 04/27/22 06/17/24 zinc PO 04/27/22 06/17/24 ketoconazole 2 % shampoo topical 04/01/24 06/17/24 Previous Rx's ?Medication ?Instructions ?Recorded atorvastatin 40 mg tablet 40 mg PO QHS #90 tabs 03/25/24 famotidine 20 mg tablet 20 mg PO BID #180 tabs 03/28/24 testosterone 50 mg/5 gram (1 %) 1 tube transdermal QAM #90 ea 03/28/24 transdermal gel fluticasone propionate 50 2 spray intranasal QDAY #16 grams 04/11/24 mcg/actuation nasal spray,suspension (Flonase Allergy Relief) metoprolol succinate 50 mg 50 mg PO QDAY #90 tabs 06/17/24 tablet,extended release 24 hr (Toprol XL) Allergies Allergy/AdvReac Type Severity Reaction Status Date / Time ciprofloxacin Allergy Intermediate Depression Verified 06/17/24 15:11 levofloxacin (From Levaquin) Allergy Unknown Depression Verified 06/17/24 15:11 Penicillins Allergy Unknown Verified 06/17/24 15:11 sulfamethoxazole (From AdvReac Verified 06/17/24 15:11 Bactrim) trimethoprim (From Bactrim) AdvReac Verified 06/17/24 15:11 Review of Systems Status of ROS: Reports: 6 or more systems reviewed and unremarkable except as noted in History and below [facility] Medical History Drug intolerance ?Z78.9 - Other specified health status (ICD-10) Acute kidney injury ?N17.9 - Acute kidney failure, unspecified (ICD-10) Non-ST elevation (NSTEMI) myocardial infarction (10/14/17) ?I21.4 - Non-ST elevation (NSTEMI) myocardial infarction (ICD-10) Pulmonary nodule ?R91.1 - Solitary pulmonary nodule (ICD-10) COVID-19 ?U07.1 - COVID-19 (ICD-10) History of renal calculi ?Z87.442 - Personal history of urinary calculi (ICD-10) Surgical History S/P TAVR (transcatheter aortic valve replacement) ?Z95.2 - Presence of prosthetic heart valve (ICD-10) 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) ?Z95.1 - Presence of aortocoronary bypass graft (ICD-10) Status post laparoscopic appendectomy (09/27/18) ?Z90.49 - Acquired absence of other specified parts of digestive tract (ICD-10) History of tonsillectomy ?Z90.89 - Acquired absence of other organs (ICD-10) History of colonoscopy with polypectomy ?Z98.890 - Other specified postprocedural states (ICD-10) ?Z86.010 - Personal history of colonic polyps (ICD-10) History of cataract extraction (12/17/14) ?Z98.49 - Cataract extraction status, unspecified eye (ICD-10) History of carpal tunnel surgery of right wrist (01/17/19) ?Z98.890 - Other specified postprocedural states (ICD-10) Family History Father GI bleeding Mother High blood pressure Social History Narrative: He lives with his , Fariha, in [place]. is healthcare power of criminal attorney. Code status is full. He does not smoke. He rarely drinks alcohol. What is your current living situation?: I presently have a place to live Problems where you live: no known problems Problems where you live details: n/a In the past 12 months, utilities in danger of being shut off: no In past 12 months, lack of transportation kept you from medical appts, meetings, work, or getting things needed for daily living: no In the past 12 mos, have been you worried that your food would run out before you had money to buy more?: never true In the past 12 mos, the food you bought just didn't last and you didn't have money to buy more?: never true Smoking Status: Never smoker Do you use any of these nicotine containing products: None Second hand tobacco smoke exposure: No How often do you have a drink containing alcohol: 2-4 times a month How many standard drinks containing alcohol do you have on a typical day: 1 or 2 How often do you have six or more drinks on one occasion: Never AUDIT-C Alcohol total score: 2 Non-prescribed substance use: denies use Caffeine: Yes (coffee) How often does anyone, including family, friends and others, physically hurt you: never How often does anyone, including family, friends and others, insult or talk down to you: never How often does anyone, including family, friends and others, threaten you with harm: never How often does anyone, including family, friends and others, scream or curse at you: never service: Yes (Sidecar) Exam Narrative: Exam Narrative: Objective: Patient's vital signs within normal limits in general is in mild distress and discomfort HEENT is unremarkable neck is supple without nodes chest is clear Heart rhythm regular 2/6 systolic murmur Prateek ectopic beat Abdomen benign soft nontender Extremities are no edema neurologic nonfocal Good peripheral perfusion No edema peripherally. Const: Vital Signs, click to edit/add: Vital Signs - 24 hr 07/10/24 10:38 07/10/24 10:39 07/10/24 10:43 Temperature 97.8 F Pulse Rate 78 81 Pulse Rate [Pulse Oximeter] 77 Respiratory Rate 18 22 12 Blood Pressure 138/92 H Blood Pressure [Ri ght Upper Arm] 138/92 H Pulse Oximetry 95 94 94 Oxygen Delivery Me thod Room Air 07/10/24 10:45 07/10/24 10:57 07/10/24 11:00 Temperature Pulse Rate 77 79 Pulse Rate [Pulse Oximeter] Respiratory Rate 14 23 Blood Pressure Blood Pressure [Ri ght Upper Arm] Pulse Oximetry 96 94 94 Oxygen Delivery Me thod 07/10/24 11:02 07/10/24 11:03 07/10/24 11:15 Temperature Pulse Rate 82 80 Pulse Rate [Pulse Oximeter] Respiratory Rate 19 16 Blood Pressure 146/89 H Blood Pressure [Ri ght Upper Arm] Pulse Oximetry 96 95 96 Oxygen Delivery Me thod 07/10/24 11:30 07/10/24 11:32 07/10/24 11:40 Temperature Pulse Rate 75 75 70 Pulse Rate [Pulse Oximeter] Respiratory Rate 19 15 23 Blood Pressure 146/92 H 142/90 H Blood Pressure [Ri ght Upper Arm] Pulse Oximetry 98 97 97 Oxygen Delivery Me thod 07/10/24 11:43 07/10/24 11:45 07/10/24 11:47 Temperature Pulse Rate 67 71 68 Pulse Rate [Pulse Oximeter] Respiratory Rate 12 15 19 Blood Pressure 134/90 H 136/85 Blood Pressure [Ri ght Upper Arm] Pulse Oximetry 98 97 97 Oxygen Delivery Me thod 07/10/24 11:52 07/10/24 11:57 07/10/24 12:00 Temperature Pulse Rate 67 67 66 Pulse Rate [Pulse Oximeter] Respiratory Rate 23 21 16 Blood Pressure 130/91 H 134/97 H Blood Pressure [Ri ght Upper Arm] Pulse Oximetry 97 97 97 Oxygen Delivery Me thod 07/10/24 12:02 07/10/24 12:15 07/10/24 12:17 Temperature Pulse Rate 65 66 64 Pulse Rate [Pulse Oximeter] Respiratory Rate 15 14 Blood Pressure 137/87 135/85 Blood Pressure [Ri ght Upper Arm] Pulse Oximetry 97 94 96 Oxygen Delivery Me thod Course Vital Signs Vital signs: Initial Vital Signs Temperature 97.8 F 07/10/24 10:38 Temperature Source Temporal Artery Scan 07/10/24 10:38 Pulse Rate 77 07/10/24 10:38 Pulse Rhythm Regular 07/10/24 10:38 Respiratory Rate 18 07/10/24 10:38 Blood Pressure 138/92 H 07/10/24 10:38 Blood Pressure Mean 107 H 07/10/24 10:38 Blood Pressure Position Supine 07/10/24 10:38 Pulse Oximetry 95 07/10/24 10:38 Oxygen Delivery Method Room Air 07/10/24 10:38 Vital Signs Temperature 97.8 F 07/10/24 10:38 Pulse Rate 77 07/10/24 10:38 Respiratory Rate 18 07/10/24 10:38 Blood Pressure 138/92 H 07/10/24 10:38 Pulse Oximetry 95 07/10/24 10:38 Oxygen Delivery Method Room Air 07/10/24 10:38 Temperature 97.8 F 07/10/24 10:38 Pulse Rate 64 07/10/24 12:17 Respiratory Rate 14 07/10/24 12:17 Blood Pressure 135/85 07/10/24 12:17 Pulse Oximetry 96 07/10/24 12:17 Oxygen Delivery Method Room Air 07/10/24 10:38 Medications Administered Medications: Generic Name Dose Route Start Last Admin Trade Name Freq PRN Reason Stop Dose Admin Heparin Sodium/Dextrose 25,000 unit in 500 mls @ 0 mls/hr 07/10/24 11:15 07/10/24 11:24 Heparin IV 1,000 unit/hr .Q0M TIMBO 20 mls/hr Administration Protocol Per Protocol Nitroglycerin/Dextrose 25,000 mcg in 250 mls @ 3 mls/hr 07/10/24 11:06 07/10/24 11:32 Nitroglycerin/Dextrose IVPB 5 mcg/min .TITRATE PRN 3 mls/hr Administration Protocol 5 MCG/MIN Discontinued Medications Generic Name Dose Route Start Last Admin Trade Name Jannie PRN Reason Stop Dose Admin Aspirin 324 mg 07/10/24 11:03 07/10/24 11:18 Aspirin 81 Mg Tab.Chew PO 07/10/24 11:04 324 mg ONCE ONE Administration Heparin Sodium (Porcine) 4,000 unit 07/10/24 11:06 07/10/24 11:19 Heparin 5,000 Unit/0.5 Ml Inj IVP 07/10/24 11:07 4,000 unit ONCE ONE Administration Hydromorphone HCl 0.5 mg 07/10/24 12:03 07/10/24 11:35 Hydromorphone 0.5 Mg/0.5 Ml Inj IVP 07/10/24 12:04 0.5 mg ONCE ONE Administration Sodium Chloride 500 mls @ 500 mls/hr 07/10/24 11:03 07/10/24 12:20 0.9 % Sodium Chloride 500 Ml IV 07/10/24 12:02 Infused .Q1H ONE Infusion Morphine Sulfate 4 mg 07/10/24 11:03 07/10/24 11:06 Morphine 4 Mg/Ml Inj IVP 07/10/24 11:04 4 mg ONCE ONE Administration Medical Decision Making [facility] Narrative Medical decision making narrative: [age] year white male with history of significant coronary disease with 3 vessel bypass as well as stents, as well as a TAVR procedure presents with chest pain while shoveling that has not relented. His initial EKG looks unremarkable. Because of his clinical history and his presentation will treat him aggressively with IV heparin bolus and drip, IV nitroglycerin, oral aspirin, IV morphine. Will get a troponin level and chest x-ray laboratory studies. Will consult cardiology. Patient likely needs consultation and possibly repeat angiogram. Addendum 11:37 a.m.: Dr. Rodriguez accepts on behalf of the [facility], hospitalist for [facility]. Patient was given additional Dilaudid, IV heparin and nitro has been started. Will Cl soon they can transfer him. Due to the weather it has been quite touching go whether we can actually transport anybody. [facility] has accepted the may have a slight weight period As well. 2:30 p.m. addendum the patient's repeat point of care troponin is elevated. We have contacted the transfer center at [facility] can expedite his transfer for potential angiogram and treatment. His pain is largely improved. Hemodynamically still stable. Transfer she has been completed, Dr. Her Valdez accepted. Lab Data Labs: Lab Results 07/10/24 07/10/24 07/10/24 Range/Units 11:00 11:05 13:58 WBC 8.07 (4.50-11.00) K/uL RBC 5.43 (4.30-5.90) m/uL Hgb 15.9 (13.5-17.5) gm/dL Hct 48.7 (37.0-53.0) % MCV 90 (80-100) fL MCH 29 (26-34) pg MCHC 33 (32-36) gm/dL RDW Coeff of Lida 13.6 (11.5-15.5) % Plt Count 172 (140-440) K/uL Neut % (Auto) 73.3 H (42.0-72.0) % Lymph % (Auto) 16.4 L (20-44) % Evans % (Auto) 8.1 (0.0-11.0) % Eos % (Auto) 1.4 (0.0-7.0) % Baso % (Auto) 0.6 (0.0-3.0) % Neut # (Auto) 5.90 (1.7-7.0) K/uL Lymph # (Auto) 1.30 (0.90-2.90) K/uL Evans # (Auto) 0.70 (0.00-0.90) K/UL Eos # (Auto) 0.11 (0.00-0.50) K/uL Baso # (Auto) 0.05 (0.00-0.30) K/uL Abs Immat Gran (auto) 0.02 (0.00-0.30) K/uL Imm/Tot Granulo (auto) 0.2 % INR 0.95 (0.91-1.10) APTT 26 (23-33) Seconds Sodium 138 (135-149) mmol/L Potassium 4.7 (3.6-5.1) mmol/L Chloride 105 (96-114) mmol/L Carbon Dioxide 22 (20-32) mmol/L Anion Gap 11 (7-15) mEq/L BUN 19 (7-30) mg/dL Creatinine 1.3 (0.5-1.5) mg/dL Estimated Creat Clear 53.10 Estimated GFR 58 ml/min Glucose 119 H (60-115) mg/dL Calcium 9.4 (8.4-10.6) mg/dL Total Bilirubin 1.0 (0.1-1.5) mg/dL Direct Bilirubin 0.2 (0.0-0.5) mg/dL AST 30 (12-35) U/L ALT 45 (4-50) U/L Alkaline Phosphatase 62 (40-150) U/L Troponin I < 0.01 L (0.01-0.04) ng/mL C-Reactive Protein < 0.5 L (0.5-1.0) mg/dL NT-Pro-B Natriuret Pep 72 pg/mL Total Protein 7.3 (6.0-8.3) g/dL Albumin 4.5 (3.3-5.0) g/dL POC Troponin I 0.01 0.60 H (0.01-0.04) ng/ml 07/10/24 Range/Units 18:33 WBC (4.50-11.00) K/uL RBC (4.30-5.90) m/uL Hgb (13.5-17.5) gm/dL Hct (37.0-53.0) % MCV (80-100) fL MCH (26-34) pg MCHC (32-36) gm/dL RDW Coeff of Lida (11.5-15.5) % Plt Count (140-440) K/uL Neut % (Auto) (42.0-72.0) % Lymph % (Auto) (20-44) % Evans % (Auto) (0.0-11.0) % Eos % (Auto) (0.0-7.0) % Baso % (Auto) (0.0-3.0) % Neut # (Auto) (1.7-7.0) K/uL Lymph # (Auto) (0.90-2.90) K/uL Evans # (Auto) (0.00-0.90) K/UL Eos # (Auto) (0.00-0.50) K/uL Baso # (Auto) (0.00-0.30) K/uL Abs Immat Gran (auto) (0.00-0.30) K/uL Imm/Tot Granulo (auto) % INR (0.91-1.10) APTT 64 H (23-33) Seconds Sodium (135-149) mmol/L Potassium (3.6-5.1) mmol/L Chloride (96-114) mmol/L Carbon Dioxide (20-32) mmol/L Anion Gap (7-15) mEq/L BUN (7-30) mg/dL Creatinine (0.5-1.5) mg/dL Estimated Creat Clear Estimated GFR ml/min Glucose (60-115) mg/dL Calcium (8.4-10.6) mg/dL Total Bilirubin (0.1-1.5) mg/dL Direct Bilirubin (0.0-0.5) mg/dL AST (12-35) U/L ALT (4-50) U/L Alkaline Phosphatase (40-150) U/L Troponin I (0.01-0.04) ng/mL C-Reactive Protein (0.5-1.0) mg/dL NT-Pro-B Natriuret Pep pg/mL Total Protein (6.0-8.3) g/dL Albumin (3.3-5.0) g/dL POC Troponin I (0.01-0.04) ng/ml Discharge Plan Discharge Clinical Impression: Chest pain, Coronary artery disease Patient Disposition: Ness Julien Prescriptions: No Action aspirin 81 mg capsule 81 mg PO QDAY blm joint support 715 mg PO DAILY calcium citrate 250 mg calcium tablet 250 mg PO BID cholecalciferol (vitamin D3) 50 mcg (2,000 unit) capsule See Rx Instructions PO QDAY Rx Instructions: 2 am, 1 pm orally every day; prasterone (dhea) 50 mg tablet 100 mg PO QDAY omega 800 mg PO DAILY prostate support PO DAILY triple boran bones 3 mg 6 mg PO BID coQ10 (ubiquinol) 100 mg capsule 200 mg PO QDAY cyanocobalamin (vitamin B-12) 500 mcg lozenge 500 mcg PO QDAY pyridoxine (vitamin B6) 100 mg tablet 50 mg PO QDAY ascorbic acid (vitamin C) 1,000 mg tablet 1 g PO QDAY vit e 100 mcg PO DAILY vitamin K2 100 mcg capsule 100 mcg PO QDAY zinc 22 mg PO metoprolol succinate [Toprol XL] 50 mg tablet extended release 24 hr 50 mg PO QDAY Qty: 90 3RF ketoconazole 2 % shampoo topical fluticasone propionate [Flonase Allergy Relief] 50 mcg/actuation spray,suspension 2 spray intranasal QDAY Qty: 16 2RF Rx Instructions: administer into each nostril atorvastatin 40 mg tablet 40 mg PO QHS Qty: 90 2RF famotidine 20 mg tablet 20 mg PO BID Qty: 180 0RF testosterone 50 mg/5 gram (1 %) gel 1 tube transdermal QAM Qty: 90 1RF Stand Alone Forms: MyHealth Info Instructions
[2024-07-10] MEDS: 0.9 % SODIUM CHLORIDE 500 ML 500 ML IV (11:09)
--- OUTSIDE RECORDS SUMMARY | 2024-07-10 11:09 | XMS_ITS | Clinical Summary ---
Author Organization [facility] Address [address], [place] [address] Care Team Providers Care Mat Repairer Name Role Phone Lyle Perry MD Primary Care Provider [phone] Source Comments You are receiving this document [...] for each transition of care or referral. [employer] Allergies Active Allergy Reactions Criticality Noted Date [...] TABS Take 1 Capsule by mouth. Active [place]-3 Fatty Acids ([employer] OMEGA-3 GUMMY FISH/DHA) 113.5 [...] MEDICARE ADVANTAGE UHC MEDICARE ADVANTAGE Care Teams Mat Repairer Relationship Specialty Start Date End Date Lyle Perry MD [address] [place] [address] PCP - General Family Practice 12/30/22
[2024-07-10 11:11] LABS: Basophils Absolute Auto 0.05 K/uL (0.00-0.30); Basophils Percent Auto 0.6 % (0.0-3.0); Eosinophils Absolute Auto 0.11 K/uL (0.00-0.50); Eosinophils Percent Auto 1.4 % (0.0-7.0); Hematocrit 48.7 % (37.0-53.0); Hemoglobin* 15.9 gm/dL (13.5-17.5); Immature Granulocytes Abs Auto 0.02 K/uL (0.00-0.30); Immature Granulocytes Pct Auto 0.2 %; Lymphocytes Percent Auto 16.4 % (20-44); Mean Corpuscular HGB Conc 33 gm/dL (32-36); Mean Corpuscular Hemoglobin 29 pg (26-34); Mean Corpuscular Volume 90 fL (80-100); Monocytes Percent Auto 8.1 % (0.0-11.0); Neutrophils Percent Auto 73.3 % (42.0-72.0); Platelet Count* 172 K/uL (140-440); RDW Coefficient of Variation % 13.6 % (11.5-15.5); Red Blood Count 5.43 m/uL (4.30-5.90); White Blood Count* 8.07 K/uL (4.50-11.00)
[2024-07-10 11:12] LABS: Slide Review Reflex No
[2024-07-10] MEDS: ASPIRIN 81 MG TAB.CHEW 324 MG PO (11:18)
[2024-07-10] MEDS: HEPARIN 5,000 UNIT/0.5 ML INJ 4000 UNIT IVP (11:19)
[2024-07-10 11:24] LABS: Albumin* 4.5 g/dL (3.3-5.0); Chloride* 105 mmol/L (96-114)
[2024-07-10] MEDS: HEPARIN 25,000 UNIT/500 ML BAG 20 UNIT IV (11:24)
[2024-07-10 11:25] LABS: Potassium* 4.7 mmol/L (3.6-5.1); Sodium* 138 mmol/L (135-149)
[2024-07-10 11:27] LABS: Blood Urea Nitrogen* 19 mg/dL (7-30); Creatinine* 1.3 mg/dL (0.5-1.5); Estimated Glomerular Filt Rate 58 ml/min
[2024-07-10 11:28] LABS: Alanine Aminotransferase* 45 U/L (4-50); Alkaline Phosphatase* 62 U/L (40-150); Anion Gap 11 mEq/L (7-15); Aspartate Amino Transferase* 30 U/L (12-35); Bilirubin Direct* 0.2 mg/dL (0.0-0.5); Calcium* 9.4 mg/dL (8.4-10.6); Carbon Dioxide* 22 mmol/L (20-32); Glucose* 119 mg/dL (60-115); INR 0.95 (0.91-1.10); Prothrombin Time 13.4 Seconds; Total Protein* 7.3 g/dL (6.0-8.3)
[2024-07-10 11:29] LABS: Partial Thromboplastin Time* 26 Seconds (23-33)
[2024-07-10] MEDS: NITROGLYCERIN/DEXTROSE 25,000 MCG/250 ML BOTTLE 3 MCG IVPB (11:32)
[2024-07-10] MEDS: HYDROmorphone 0.5 mg/0.5 ml inj IVP (11:35)
[2024-07-10 11:36] LABS: Troponin, Point-of-Care* 0.01 ng/ml (0.01-0.04)
[2024-07-10 11:37] LABS: C Reactive Protein* < 0.5 mg/dL (0.5-1.0)
[2024-07-10 11:46] LABS: NT Pro B Type NatriureticPept* 72 pg/mL; Troponin I* < 0.01 ng/mL (0.01-0.04)
[2024-07-10 18:55] LABS: Partial Thromboplastin Time* 64 Seconds (23-33)
[2024-07-10] MEDS: 5 % DEXTROSE/0.45% SOD CHLOR 1,000 ML 20 ML IV (20:45)
[2024-07-10] MEDS: ACETAMINOPHEN 500 MG TABLET 1000 MG PO (23:19)
[2024-07-11] VITALS (13 sets, daily range): BP systolic 105–113; BP diastolic 70–72; PULSE 64–73; RESP 11–19; O2SAT 91–96
--- NOTE | 2024-07-11 00:52 | ED.NURSE ---
Pt report given to LACY Diggs at [facility]. Pt to be in room H8070.
[2024-07-11 00:58] LABS: Partial Thromboplastin Time* 51 Seconds (23-33)
--- NOTE | 2024-07-11 01:21 | ED.NURSE ---
Report given to EMS.
== END 2024-07-11 01:26 | disposition short-term general hospital (02) ==
PROVIDERS: Emergency Provider Family Medicine; PCP Family Medicine
DX: R07.9 Chest pain, unspecified (principal); I25.10 Atherosclerotic heart disease of native coronary artery without angina pectoris
CPT/HCPCS: 36415; 71045; 80048; 80076; 83880; 84484; 85025; 85610; 85730; 86140; 93005; 94761; 96361; 96374; 96375; 99285; A9270; J1171; J1644; J2270; J7030; S5010

== ENCOUNTER 2024-07-11 01:28 | Outpatient (CLI) | payer MEDICARE, SELFPAY | END 2024-07-11 01:29 | disposition home or self-care (01) | LOC: AMB 07-12 09:48 | PROVIDERS: PCP Family Medicine; Visit Provider Family Medicine | DX: R07.89 Other chest pain (principal) | CPT/HCPCS: A0425; A0427 ==

== ENCOUNTER 2024-07-15 16:58 | Outpatient (CLI) | payer MEDICARE, SELFPAY | END 2024-07-15 16:59 | disposition home or self-care (01) | PROVIDERS: PCP Family Medicine; Visit Provider Family Medicine | DX: I10 Essential (primary) hypertension (principal); I25.10 Atherosclerotic heart disease of native coronary artery without angina pectoris; Z79.899 Other long term (current) drug therapy | CPT/HCPCS: 80048; 82306; 84597 ==

== ENCOUNTER 2024-09-12 06:16 | Day surgery (SDC) | payer MEDICARE, SELFPAY ==
[2024-09-12] VITALS (7 sets, daily range): BP systolic 139–152; BP diastolic 69–91; PULSE 63–77; RESP 16–20; TEMP 36.7; O2SAT 95–98; BMI 27.8
[2024-09-12] MEDS: LIDOCAINE 1%-EPI 1:100,000 20 ML INFILTRATI (07:15)
[2024-09-12] MEDS: ETHYL CHLORIDE 1 APPLICATION 1 APPLIC TOPICAL (07:15)
[2024-09-12] MEDS: BUPIVACAINE 0.5 %/EPI 1:200K INJECTION (07:15)
--- NOTE | 2024-09-12 07:57 | PM.ORPRC ---
Procedure Note Date of procedure: 09/12/24 Procedure: Preop diagnosis: Right hand ring finger stenosing tenosynovitis Postop diagnosis: Right hand ring finger stenosing tenosynovitis Procedure: Right hand ring finger A1 sara release Anesthesia: Local Surgeon: Franck Bae MD retirement assistant: SHLOMO Chowdary EBL: 1 mL Complications: None Specimens: None Drains: None Preoperative antibiotics: None Indications: The patient has a history of right upper extremity ring finger painful catching and locking. Despite appropriate non operative management including flexor tendon sheath corticosteroid injections they continue to have symptoms. Operative intervention was recommended. The risks, benefits alternatives and expected outcomes were discussed in detail. These included but were not limited to: Infection, bleeding, injury to blood vessel or nerve, venous thromboembolism. All questions were answered to their satisfaction. The patient was placed supine on the operating room table. Local anesthesia was established with 0.5% Marcaine with epinephrine and 2% lidocaine with epinephrine. The hand was prepped and draped in usual sterile fashion. A transverse incision was made centered over the base of the ring finger in the distal palmar crease. Subcutaneous dissection was taken through the palmar fascia to the flexor tendons with the tenotomy scissors. The A1 sara was released with the 15 blade and tenotomy scissors. Active flexion and extension of the finger shows no catching or locking, no bowstringing of the flexor tendons. The wound was closed with interrupted nylon sutures. A dry dressing was applied. Sponge and needle counts were correct x 2. The patient tolerated the procedure well, there were no apparent complications. They were sent to same day surgery in satisfactory condition. Plan: Use of the hand as tolerates. Discontinue the intraoperative dressing on postoperative day 3 and may get the wound wet as tolerates. Follow up in the office in 2 weeks for a wound check and suture removal.
== END 2024-09-12 08:16 | disposition home or self-care (01) ==
LOC: OR 06:17
PROVIDERS: PCP Family Medicine; Visit Provider Orthopaedic Surgery
PROC: (CPT 26055; principal; 2024-09-12 07:45)
DX: M65.341 Trigger finger, right ring finger (principal); M65.841 Other synovitis and tenosynovitis, right hand
CPT/HCPCS: 26055; J3490

== ENCOUNTER 2024-09-13 09:12 | Emergency (ER) | payer MEDICARE, SELFPAY ==
[2024-09-13] VITALS (18 sets, daily range): BP systolic 133–175; BP diastolic 77–88; PULSE 59–73; RESP 11–19; TEMP 36.9; O2SAT 95–98; BMI 27.7
--- OUTSIDE RECORDS SUMMARY | 2024-09-13 09:15 | XMS_ITS | Data Portability ---
Author Organization [place] - [facility], auto[facility] - [facility] Address [address] [place] [address] Assessment Encounter Date Assessment Date Assessment LastModified [...] Organization Details Recorded Time Thoracic segmental dysfunction 915975660 Active 2023 Dawood May DC [address], [place], [address], [facility] 4 08:29:14 Lumbar segmental dysfunction 685709683 Active 2023 Dawood Logan Dominickbhumi CEE [address], [place], [address], [facility] 4 08:29:14 Low back pain 376253267 Active 2023 Dawood Logan Dominickbhumi CEE [address], [place], [address], [facility] 4 08:29:14 Somatic dysfunction of sacral spine 920569284 Active 2023 Dawood Logan Dominickbhumi CEE [address], [place], [address], [facility] 4 08:29:14 Problem Notes None recorded. Procedures Surgical History Date Name Laterality Status Provider Name and Address Organization Details Recorded Time 4 48452: Spinal manipulation , 3 to 4 regions completed Dawood Logan DominickbhumiCEE [address], [place], [address], [facility] 04/13/2024 08:31:18 Imaging Results None recorded. Procedure Notes None recorded. Medical Equipment None Reported. Vitals None Recorded Social History None recorded. Functional Status None recorded. Mental Status None recorded. Family History Nothing Reported. Medical History No medical history recorded. Past Encounters Encounter ID Performer Location Encounter Start Date Encounter Closed Date Diagnosis/Indication Diagnosis SNOMED-CT Code Diagnosis ICD10 Code Diagnosis Note [id number] Dawood CEE [facility] [address] [place] [phone] 04/12/2024 18:49:32 04/17/2024 16:03:09 Lumbar segmental dysfunction 345829301 M99.03 Low back pain 264637624 M54.50 Somatic dy sfunction of sacral spine 827413014 M99.04 Thoracic s egmental dysfunction 239860784 M99.02 Health Concerns Section Related Observation LastModified by Organization Detai ls LastModified Time None Recorded Concern Status LastModified by Organization Details LastModified Time None Recorded Advance Directives Directive None Recorded Payers Encounter Date Sequence Insurance Name Policy Number Policy Lucas Covered Member ID Lucas Member ID Guarantor Name 04/12/2024 1 [facility] Ryan Miguel Bishop [id number] Ryan Bishop Notes Date Note Type Note Provider Name and Address Organization Details Recorded Time 04/12/2024 text/html HPI - Lumbar SpineReported bypatient.Location: bilateral; With radiation to knee Quality:aching; dull Severity:not changing Timing:gradual Duration:continuous since onset Context:cannot identify Aggravating Factors:standing; walking; weightbearing Alleviating Factors:rest; elevation; 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
--- OUTSIDE RECORDS SUMMARY | 2024-09-13 09:15 | XMS_ITS | Clinical Summary ---
Author Organization [facility] Address [address] [place] [id number] Care Team Providers Care Internal Recruiter Name Role Phone Lyle Perry MD Primary Care Provider Allergies Active Allergy Reactions Criticality Noted Date Comments Levofloxacin Myalgia 08/18/2023 Penicillins *Unknown - Childhood Rxn Tolerated Ancef on previous admission Medications Cholecalciferol, Vitamin D3, 2,000 unit tablet Take 4,000 units by mouth two times daily. Active CALCIUM CITRATE/VITAMIN D2 (CALCIUM CITRATE WITH D ORAL) Take 1 Tablet by mouth two times daily. Active ascorbic acid, vitamin C, (VITAMIN C) 1,000 mg tablet Take 1,000 mg by mouth once daily. Active vitamin E acetate (VITAMIN E ORAL) Take 268 units by mouth once daily in the evening. Active aspirin chewable 81 mg chewable tablet Chew 81 mg by mouth once daily in the evening. Active omega-3 fatty acids (FISH OIL) cap Take 1 Capsule by mouth once daily. Active testosterone 1%, 50 mg/5 g, (ANDROGEL/VOGELX O) topical gel Apply 1 Packet on dry, clean, hairless skin once daily. 07/07/19 21 Active atorvastatin (LIPITOR) 40 mg tablet 1 Tablet (40 mg) once daily with evening meal. 0 08/19/19 23 Active famotidine (Pepcid) 20 mg tablet Take 20 mg by mouth two times daily. Active zinc sulfate (ZINC-220 ORAL) Take 1 Tablet by mouth once daily. Active lactobacillus combination no.4 (Probiotic) 3 billion cell cap Take 1 Capsule by mouth once daily. Active Prasterone, DHEA, (DHEA) 50 mg cap Take 100 mg by mouth once daily. 01/06/20 18 Active alpha lipoic acid 100 mg capsule Take 600 mg by mouth once daily in the evening. Active medication order composer Take by mouth once daily. BLM (Bone Ligaments and Muscles by [employer]) Supplement. Contains: glucosamine, collagen, MSM, and other ingredients Active medication order composer Take by mouth once daily in the evening. Prostate Support (Saw palmetto, nettle, pumpkin seed, zinc, B6, lycopene) by NOW vitamins Active medication order composer Take 2 Tablets by mouth two times daily. Triple Dixon Bones Active coenzyme q10 (Co Q-10) 100 mg cap Take 100 mg by mouth two times daily. Ubiquinol [facility] Health Active clopidogreL (PLAVIX) 75 mg tabletIndication s:NSTEMI (non-ST elevated myocardial infarction) (HC) Take 1 Tablet (75 mg) by mouth once daily. Do not stop taking or miss doses for minimum one year/ until OK'd by senior systems software engineer. 30 Tablet 11 07/12/2024 2:05 PM QUAL FIELD MANAGER 07/14/19 25 Active gabapentin 100 mg capsule Take 100 mg by mouth once daily. 07/20/19 25 Active nitroglycerin 0.4 mg sublingual tabletIndication s:Coronary artery disease, unspecified vessel or lesion type, unspecified whether angina present, unspecified whether cahuilla or transplanted heart,Coronary artery disease involving cahuilla coronary artery without angina pectoris, unspecified whether cahuilla or transplanted heart Place 1 Tablet (0.4 mg) under the tongue every 5 minutes if needed for Chest Pain. 25 Tablet 3 08/23/19 25 Active metoprolol succinate 50 mg sustained-releas e tabletIndication s:Coronary artery disease, unspecified vessel or lesion type, unspecified whether angina present, unspecified whether cahuilla or transplanted heart,NSTEMI (non-ST elevated myocardial infarction) (HC) Take 1 Tablet (50 mg) by mouth once daily. 90 Tablet 3 08/23/19 25 Active nitroglycerin (NITROSTAT) 0.4 mg sublingual tabletIndication s:Coronary artery disease involving cahuilla coronary artery without angina pectoris, unspecified whether cahuilla or transplanted heart Place 1 Tablet (0.4 mg) under the tongue every 5 minutes if needed for Chest Pain for a maximum 3 tablets in 15 minutes. Call 911 if symptoms not improving after the first dose. 24 Tablet 11/15/2022 4:57 PM CDT 11/16/19 23 025 Discontin ued(Reord er (E-cancel not sent)) metoprolol succinate (TOPROL XL) 50 mg sustained-releas e tabletIndication s:NSTEMI (non-ST elevated myocardial infarction) (HC) Take 1 Tablet (50 mg) by mouth once daily. 30 Tablet 2 07/14/19 25 025 Discontin ued(Reord er (E-cancel not sent)) Active Problems Problem Noted Date Diagnosed Date CAD (coronary artery disease) 07/11/2024 S/P TAVR (transcatheter aortic valve replacement ) 02/27/2024 Severe aortic stenosis 08/23/2023 CHF (congestive heart failur e), NYHA class [...] Colonoscopy 03/2019 polyps, repeat in 3 years Resolved Problems Problem Noted Date Diagnosed Date Resolved Date Cardiovascular symptoms 11/15/2022 03/0 10/2024 Aortic valve stenosis 2024 Encounters Date Type Department Care Team Description 09/02/[address] [facility] [address] [place] [phone] Ramo Langley MD Care Coordination (Pre Procedure - Oral Surgeon office) 08/22/2024 2:30 PM CDT Office Visit [facility] [address] [facility] [address] [place] [address] Daniel, AMAN Sanchez Follow Up (Hostpital follow up - D/S WAS 09/11(4-6 week follow up Coronary artery disease, unspecified vessel or lesion type, unspecified whether angina present, unspecified whether cahuilla or transplanted heart//Pt states he is doing well-denies cardiac sx) 08/22/2024 Travel 08/17/2024 Travel 07/11/2024 2:25 AM QUAL FIELD MANAGER - 07/12/2024 2:51 PM QUAL FIELD MANAGER Hospital Encounter [facility] [address] [place] [address] [facility], [facility] [employer] DO Clements, Lauren Elise, MD French, Rudy Govea MD NSTEMI (non-ST elevated myocardial infarction) (HC) (Primary Dx); Cardiovascular symptoms; Coronary artery disease, unspecified vessel or lesion type, unspecified whether angina present, unspecified whether cahuilla or transplanted heart Discharge Disposition: Home Self Care 07/11/2024 Travel 07/10/2024 Telephone [facility] [address] [place] [address] Harmeet Rodriguez MD from Last 3 Months Immunizations Immunization Administration Dates Next Due Td, [...] or isolated from those around you? 0 07/11/2024 Financial Resource Strain Answer Date R ecorded Difficulty of Paying Living Expenses 3 11/06/2023 Difficulty of Paying Living Expenses Not on file 11/06/2023 Food Insecurity Answer Date Recorded Do you worry your food will run out before you are able to buy more? 1 07/11/2024 Transportation Needs Answer Date Record ed Does lack of transportation keep you from medica l appointments? 1 07/11/2024 Does lack of transportation keep you from work, meetings or getting things that you need? 1 07/11/2024 Housing Stability Answer Date Recorded What is your housing situation today? 1 07/11/2024 Interpersonal Safety Answer Date Record ed Are you being hit, kicked, p ushed or yelled at (see row info)? No 07/11/2024 Interpersonal Safety Abuse 12 - 18 Not on file 07/11/2024 Interpersonal Safety Ambulatory Vulnerability No t on file 07/11/2024 Utilities Answer Date Recorded Do you have trouble paying f or utilities (for example, heat, electricity, water, phone)? 1 07/11/2024 Sex and Gender Information Value Date Recorded Sex Assigned at Not on file Legal Sex Male 6:26 AM QUAL FIELD MANAGER Gender Identity Not on file Sexual Orientation Not on file Obstetrics History Last Filed Vital Signs Vital Sign Reading Time Taken Comments Blood Pressure 146/78 08/22/2024 2:25 PM CDT Pulse 74 08/22/2024 2:25 PM CDT Temperature 36.8 C (98.2 F) 07/12/2024 8:03 AM QUAL FIELD MANAGER Respiratory Rate 16 07/12/2024 8:03 AM QUAL FIELD MANAGER Oxygen Saturation 96% 08/22/2024 2:25 PM CDT Inhaled Oxygen Concentration - - Weight 93.9 kg (207 lb) 08/22/2024 2:25 PM CDT Height 180.3 cm (5' 11) 08/22/2024 2:25 PM CDT Body Mass Index 28.87 08/22/2024 2:25 PM CDT Plan of Treatment Health Maintenance [...] COVID-19 vaccine series ( - season) 2024 Depression screening for age 12+ 11/06/2024 2023, 11/06/2023, 11/14/2017 Influenza Vaccine (Season Ended) 2025 BMI (ht and wt on same day) for age 18+ 08/22/2025 08/22/2024, 11/06/2023, 09/29/2023, Additional history exists Tetanus booster 06/12/2027 06/12/2017, 11/26/2004 Colonoscopy through age 75 11/23/202811/23, 11/24/2023, 11/24/2023, Additional history exists Lipids for age 45-75 07/11/2029 07/11/2024, 11/15/2022, 10/15/2017 Tdap Completed 06/12/2017 Medical Devices Implanted Type Area Lead Handler Device Identifier Shelf Expiration Date Model / Serial / Lot Stent Uret [id number] Silhouette - [id number] Implanted:Qty: 1 on 11/29/2018 by Vladimir Elliott MD at [facility] Left: Ureter [employer] Apurva 04/08/2021 [id number] / / [id number] Procedures Procedure Name Priority Date/Time Associated Diagnosis Comments CREATININE ALEXANDER 07/12/2024 8:13 AM QUAL FIELD MANAGER MAGNESIUM Early AM 07/12/2024 8:13 AM QUAL FIELD MANAGER SODIUM Early AM 07/12/2024 8:13 AM QUAL FIELD MANAGER POTASSIUM Early AM 07/12/2024 8:13 AM QUAL FIELD MANAGER EKG 12 LEAD Early AM 07/12/2024 6:13 AM QUAL FIELD MANAGER SCAN-CARDIAC STRIP 07/12/2024 4: 53 AM QUAL FIELD MANAGER APTT Timed 07/11/2024 8:01 PM QUAL FIELD MANAGER SCAN-CARDIAC STRIP 07/11/2024 7: 30 PM QUAL FIELD MANAGER HCHG ACTIVATED CLOTTING TM CV Timed 07/11/2024 7:00 PM QUAL FIELD MANAGER HCHG ACTIVATED CLOTTING TM CV Timed 07/11/2024 6:49 PM QUAL FIELD MANAGER CVL CORONARY ANGIOGRAM POSS PCI Routine 07/11/2024 6:33 PM QUAL FIELD MANAGER Cardiovascular symptoms HEMOGLOBIN STAT 07/11/2024 4:41 PM QUAL FIELD MANAGER APTT Timed 07/11/2024 11:53 AM QUAL FIELD MANAGER SCAN CORRESP-EKG RESULTS 07/11/2024 11:49 AM QUAL FIELD MANAGER SCAN CORRESP-IMAGING 07/11/2024 11:49 AM QUAL FIELD MANAGER ECHO TTE COMPLETE WO CONTRAST Routine 07/11/2024 10:57 AM QUAL FIELD MANAGER SCAN-CARDIAC STRIP 07/11/2024 7: 57 AM QUAL FIELD MANAGER BASIC METABOLIC PANEL ALEXANDER 07/11/2024 6:46 AM QUAL FIELD MANAGER CREATININE ALEXANDER 07/11/2024 6:46 AM QUAL FIELD MANAGER LIPID PANEL ALEXANDER 07/11/2024 6:46 AM QUAL FIELD MANAGER TROPONIN T (HS) ONE TIME Timed 07/11/2024 6:46 AM QUAL FIELD MANAGER APTT STAT 07/11/2024 4:46 AM QUAL FIELD MANAGER EKG 12 LEAD Routine 07/11/2024 4:28 AM QUAL FIELD MANAGER APTT STAT 07/11/2024 3:15 AM QUAL FIELD MANAGER CBC WITH AUTO DIFFERENTIAL ALEXANDER 07/11/2024 3:13 AM QUAL FIELD MANAGER CBC WITH AUTO DIFFERENTIAL ALEXANDER 07/11/2024 3:13 AM QUAL FIELD MANAGER CREATININE ALEXANDER 07/11/2024 3:13 AM QUAL FIELD MANAGER TROPONIN T (HS) ACUTE W/2HR REFLEX STAT 07/11/2024 3:13 AM QUAL FIELD MANAGER HEMOGLOBIN Early AM 07/11/2024 3:13 AM QUAL FIELD MANAGER PLATELET COUNT Early AM 07/11/2024 3:13 AM QUAL FIELD MANAGER SCAN-CARDIAC STRIP 07/11/2024 2: 57 AM QUAL FIELD MANAGER COLONOSCOPY SCREENING Routine 11/24/2023 8:21 AM CDT Polyp of colon, unspecified part of colon, unspecified type from Last 3 Months or Most Recently Relevant to Health Maintenance Results * SODIUM (07/12/2024 8:13 AM QUAL FIELD MANAGER) SODIUM 140 136 - 145 mmol/L 07/12/2024 9:25 AM QUAL FIELD MANAGER [facility] Blood BLOOD SPECIMEN / Unknown Venipuncture / Unknown 07/12/2024 8:13 AM QUAL FIELD MANAGER 07/12/2024 8:57 AM QUAL FIELD MANAGER us Madeline Terry MD CHEMISTRY Final R esult [facility] [address] [place] [address], [place] * POTASSIUM (07/12/2024 8:13 AM QUAL FIELD MANAGER) POTASSIUM 4.7 3.5 - 5.1 mmol/L 07/12/2024 9:25 AM QUAL FIELD MANAGER [facility] Blood BLOOD SPECIMEN / Unknown Venipuncture / Unknown 07/12/2024 8:13 AM QUAL FIELD MANAGER 07/12/2024 8:57 AM QUAL FIELD MANAGER us Madeline Terry MD CHEMISTRY Final R esult Performing Organization Address City/[facility]/ZIP Co de Phone Number [facility] [address] [place] [address], [place] * (ABNORMAL) Creatinine FOR ADD ON (07/12/2024 8:13 AM QUAL FIELD MANAGER) Only the most recent of3 resultswithin the time period is included. eGFR 66(L) >90 mL/min/1.7 3m2 07/12/2024 9:57 AM QUAL FIELD MANAGER [facility] Comment:As of 2021, eG FR is calculated by the CKD-EPI creatinine equation without race adjustment. eGFR can be influenced by muscle mass, exercise, and diet. The reported eGFR is an estimation only and is only applicable if the renal function is stable. CREATININE 1.16 0.70 - 1.20 mg/dL 07/12/2024 9:57 AM QUAL FIELD MANAGER [facility] Blood BLOOD SPECIMEN / Unknown Venipuncture / Unknown 07/12/2024 8:13 AM QUAL FIELD MANAGER 07/12/2024 8:57 AM QUAL FIELD MANAGER us Maryan Zaragoza NP CHEMISTRY Final Result Performing Organization Address City/[facility]/ZIP Co de Phone Number [facility] [address] [place] [address], [place] * Magnesium AM (07/12/2024 8:13 AM QUAL FIELD MANAGER) MAGNESIUM 1.9 1.6 - 2.4 mg/dL 07/12/2024 9:25 AM QUAL FIELD MANAGER [facility] Blood BLOOD SPECIMEN / Unknown Venipuncture / Unknown 07/12/2024 8:13 AM QUAL FIELD MANAGER 07/12/2024 8:57 AM QUAL FIELD MANAGER Madeline Terry MD CHEMISTRY Final R esult [facility] [address] [place] [address], * EKG - In AM (07/12/2024 6:13 AM QUAL FIELD MANAGER) Only the most recent of2 resultswithin the time period is included. Interpretation Sinus Rhythm with a demand pacemaker Supra-ventricular complexes Nonspecific T wave abnormality worse in Lateral Leads Abnormal ECG When compared with ECG of 11-Jul-2024 04:28, Premature supraventricular complexes are now Present Nonspecific T wave abnormality now evident in Lateral leads BEYOND NOW Ventricular Rate 64 BPM BEYOND NOW Atrial Rate 64 BPM BEYOND NOW P-R Interval ms BEYOND NOW QRS Duration 82 ms BEYOND NOW QT 424 ms BEYOND NOW QTc 437 ms BEYOND NOW P [place] 55 degrees BEYOND NOW R [place] 52 degrees BEYOND NOW T [place] 97 degrees BEYOND NOW 07/12/2024 6:13 AM QUAL FIELD MANAGER 07/12/2024 11:53 AM QUAL FIELD MANAGER Erik Arias MD EKG ORD Final Result Performing Organization Address City/[facility]/ZIP Co de Phone Number BEYOND NOW [place], [place] * SCAN-CARDIAC STRIP (07/12/2024 4:53 AM QUAL FIELD MANAGER) Scanner OTHER Final Result * (ABNORMAL) APTT (07/11/2024 8:01 PM QUAL FIELD MANAGER) Only the most recent of4 resultswithin the time period is included. APTT 156(HH) 25 - 36 sec 07/11/2024 8:51 PM QUAL FIELD MANAGER [facility] Blood BLOOD SPECIMEN / Unknown Butterfly / Unknown 07/11/2024 8:01 PM QUAL FIELD MANAGER 07/11/2024 8:14 PM QUAL FIELD MANAGER Narrative [facility] - 07/11/2024 8:51 PM QUAL FIELD MANAGER Therapeutic Range: 59-89 seconds Madeline Terry MD HEMATOLOGY Final R esult Performing Organization Address City/[facility] Co de Phone Number [facility] [address] [place] [address], [place] * SCAN-CARDIAC STRIP (07/11/2024 7:30 PM QUAL FIELD MANAGER) Scanner OTHER Final Result * (ABNORMAL) ACTIVATED CLOTTING TIME [id number] ACT (07/11/2024 7:00 PM QUAL FIELD MANAGER) Only the most recent of2 resultswithin the time period is included. ACTIVATED CLOTTING TIME, POCT 243(H) 74 - 125 sec 07/11/2024 7:08 PM QUAL FIELD MANAGER [facility] Blood BLOOD SPECIMEN / Unknown 07/11/2024 7:00 PM QUAL FIELD MANAGER 07/11/2024 7:08 PM QUAL FIELD MANAGER Madeline Terry MD HEMATOLOGY Final R esult Performing Organization Address [facility] Co de Phone Number [facility] [address] [place] [address], [place] * CVL CORONARY ANGIOGRAM POSS PCI (07/11/2024 6:33 PM QUAL FIELD MANAGER) Anatomical Region Laterality Modality Other 07/11/2024 6:33 PM QUAL FIELD MANAGER Narrative Procedure Note Erik Arias MD - 07/11/2024 7:19 PM CST DATE OF SERVICE: 07/11/2024 PREOPERATIVE DIAGNOSES: 1. Acute non-ST elevation CT. 2. Status post coronary artery bypass surgery. 3. Status post Evolut TAVR. PROCEDURES: 1. Coronary arteriography, saphenous vein graft and internal mammaryangiography. 2. Obtuse marginal drug-eluting stent. FINDINGS: The left main coronary stent is widely patent extending into the obtusemarginal. There appears to be evidence for subacute thrombosis withfilling defect style lesions evident. These marginal stents were placedin 11/2022. The filling defects were then covered with a single 2.5 x 38zotarolimus-eluting stent, leading to an excellent result. The leftanterior descending is totally occluded. There is a widely patent leftinternal mammary to the LAD showing nice retrograde filling of the LADdiagonal. The right coronary artery is dominant and totally occluded. There is apatent sequential graft to the PDA and posterolateral branch. SUMMARY OF FINDINGS: 1. Acute CT. 2. Late stent thrombosis in the obtuse marginal, good drug-eluting stentresult. 3. All grafts patent. 4. Evolut looks deeply implanted as though it shifted inward towards theLV in comparison to the deployment carried out in 08/2023. 5. Recommend dual antiplatelet therapy for 12 months. 6. Successful Perclose groin closure. 7. No complication. Results are automatically released to your [employer] ([employer]) accountonce available, in compliance with federal regulations. This means thatyou may see your results before your provider has had a chance to reviewthem. Please allow 2-3 business days for your provider to comment on theresults. MD STEFFANIE ROCHA/JACOBO/CAITY/EDW VJID: [id number] TJID: [id number] cc: PURNIMA PINTO us Provider Referring CV IMAGING Edited Result - Final * HEMOGLOBIN (07/11/2024 4:41 PM QUAL FIELD MANAGER) Only the most recent of2 resultswithin the time period is included. HEMOGLOBIN 15.8 13.5 - 17.5 g/dL 07/11/2024 4:51 PM QUAL FIELD MANAGER [facility] MCV 89 80 - 100 fL 07/11/2024 4:51 PM QUAL FIELD MANAGER [facility] Blood BLOOD SPECIMEN / Unknown Butterfly / Unknown 07/11/2024 4:41 PM QUAL FIELD MANAGER 07/11/2024 4:47 PM QUAL FIELD MANAGER Narrative [facility] - 07/11/2024 4:51 PM QUAL FIELD MANAGER Every morning while on IV heparin. us Tanvir Sky MD HEMATOLOGY Final Result [facility] [address] [place] [address], [place] * SCAN CORRESP-EKG RESULTS (07/11/2024 11:49 AM QUAL FIELD MANAGER) Narrative 07/11/2024 11:49 AM QUAL FIELD MANAGER Ordered by an unspecified provider. us Other Clinical Staff OTHER Final Resul t * SCAN CORRESP-IMAGING (07/11/2024 11:49 AM QUAL FIELD MANAGER) Anatomical Region Laterality Modality Other Narrative 07/11/2024 11:49 AM QUAL FIELD MANAGER Ordered by an unspecified provider. us Other Clinical Staff OTHER Final Resul t * ECHO TTE COMPLETE WO CONTRAST (07/11/2024 10:57 AM QUAL FIELD MANAGER) AORTIC VALVE MEAN PG 7 mmHg EJECTION FRACTION 61 % LVEDD 4.4 cm EJECTION FRACTION 60 - 65% Anatomical Region Laterality Modality Ultrasound 07/11/2024 9:40 AM QUAL FIELD MANAGER Narrative 07/11/2024 11:03 AM QUAL FIELD MANAGER ECHOCARDIOGRAM RYAN BISHOP : 1950 73 years Study Date: 07/11/2024 9:40:25 AM Gender: M BP: 114/73 mmHg Height: 180.00 cm BSA: 2.14 m Weight: 94.00 kg Tech: [facility] Referring MD: YOUNG FORTE Site: [facility] Reading Location: [employer] Patient Location: Inpatient. Procedure: 2D, Color Doppler and Spectral Doppler. Indication for study: Chest pain Cardiac Rhythm: Normal sinus.Study quality: Good. Final Impressions: 1. LVEF estimate 60-65%. Normal LV size and wall thickness. 2. Normal RV size and global function. 3. TAVr with 34 mm Evolut Fx. No stenosis [V-max 1.7 m/s and MG 7 mmHg] and no AI. 4. Moderate LAE. 5. Normal RAP estimate. 6. No pericardial effusion. Chamber Sizes and Function No resting regional wall motion abnormality visualized. Left atrial size is moderately enlarged. Right ventricular cavity size is normal, global systolic RV function is borderline reduced. The right atrium is normal. Right atrial volume index is 23 ml/m . Right atrial area is 18 cm . The pulmonary artery is not well visualized. The sinus of Valsalva is not well visualized. The ascending aorta is normal sized. Valves, RV Pressures and Diastolic Function The aortic valve is functioning 34mm Evolut Fx, no stenosis and no regurgitation. The mitral valve is sclerotic, trace mitral regurgitation. Mitral annular calcification is present. Indeterminate pattern of LV diastolic filling. The tricuspid valve is normal in structure and trace tricuspid regurgitation. The pulmonic valve is not well visualized. Trace pulmonary regurgitation. Masses, Effusion, Shunts There is no pericardial effusion. The inferior vena cava is normal sized, respiratory size variation greater than 50%. No left to right shunting was detected by limited color flow Doppler interrogation of the interatrial septum. MEASUREMENTS AND CALCULATIONS 2-D Measurements and LV Function: LVID (d) 4.4 cm LV FS% (2D) 27 % LVID (s) 3.2 cm LVOT diameter 2.3 cm IVS (d) 1.2 cm HR 60 bpm LVPW (d) 1.0 cm LA Vol index 41 ml/m2 Ao Sinus ULN 4.2 cm * RA Vol index 23 ml/m2 Asc Ao 3.0 cm RA area 18 cm Asc Ao ULN 4.3 cm * RV Basal Diam 4.2 cm * Input BSA outside of range, reported values correspond to BSA = 2.1 Diastology: Mitral Tissue Doppler E Peak 1.1 m/s e', Septum 0.07 m/s A Peak 0.8 m/s E/A 1.3 DT 210 msec Aortic Valve: Vmax 1.7 m/s TRACEE (V) 2.78 cm VTI 0.39 m TRACEE (I) 2.91 cm LVOT V max 1.1 m/s Max PG 11 mmHg LVOT VTI 0.27 m Mean PG 7 mmHg SV 113 ml Dim Index 0.69 SV index 53 ml/m CO 6.8 l/min CI 3.2 l/min/m Mitral Valve: MVA 3.6 cm MV P 1/2 61 msec Tricuspid Valve and estimated PA pressures: TAPSE 2.0 cm . This study was interpreted by an [facility] accredited facility. Final Procedure Note Jorge Crawley MD - 07/11/2024 ECHOCARDIOGRAM RYAN BISHOP : 1950 73 years Study Date: 07/11/2024 9:40:25 AM Gender: M BP: 114/73 mmHg Height: 180.00 cm BSA: 2.14 m Weight: 94.00 kg Tech: [facility] Referring MD: YOUNG FORTE Site: [facility] Reading Location: [facility] Patient Location: Inpatient. Procedure: 2D, Color Doppler and Spectral Doppler. Indication for study: Chest pain Cardiac Rhythm: Normal sinus.Study quality: Good. Final Impressions: 1. LVEF estimate 60-65%. Normal LV size and wall thickness. 2. Normal RV size and global function. 3. TAVr with 34 mm Evolut Fx. No stenosis [V-max 1.7 m/s and MG 7 mmHg]and no AI. 4. Moderate LAE. 5. Normal RAP estimate. 6. No pericardial effusion. Chamber Sizes and Function No resting regional wall motion abnormality visualized. Left atrial sizeis moderately enlarged. Right ventricular cavity size is normal, globalsystolic RV function is borderline reduced. The right atrium is normal.Right atrial volume index is 23 ml/m . Right atrial area is 18 cm . Thepulmonary artery is not well visualized. The sinus of Valsalva is not wellvisualized. The ascending aorta is normal sized. Valves, RV Pressures and Diastolic Function The aortic valve is functioning 34mm Evolut Fx, no stenosis and noregurgitation. The mitral valve is sclerotic, trace mitral regurgitation.Mitral annular calcification is present. Indeterminate pattern of LVdiastolic filling. The tricuspid valve is normal in structure and tracetricuspid regurgitation. The pulmonic valve is not well visualized. Tracepulmonary regurgitation. Masses, Effusion, Shunts There is no pericardial effusion. The inferior vena cava is normal sized,respiratory size variation greater than 50%. No left to right shunting wasdetected by limited color flow Doppler interrogation of the interatrialseptum. MEASUREMENTS AND CALCULATIONS 2-D Measurements and LV Function: LVID (d) 4.4 cm LV FS% (2D) 27% LVID (s) 3.2 cm LVOT diameter2.3 cm IVS (d) 1.2 cm HR 60bpm LVPW (d) 1.0 cm LA Vol index 41ml/m2 Ao Sinus ULN 4.2 cm * RA Vol index 23ml/m2 Asc Ao 3.0 cm RA area 18cm Asc Ao ULN 4.3 cm * RV Basal Diam4.2 cm * Input BSA outside of range, reported values correspond to BSA = 2.1 Diastology: Mitral Tissue Doppler E Peak 1.1 m/s e', Septum 0.07 m/s A Peak 0.8 m/s E/A 1.3 DT 210 msec Aortic Valve: Vmax 1.7 m/s TRACEE (V) 2.78 cm VTI 0.39 m TRACEE (I) 2.91 cm LVOT V max 1.1 m/s Max PG 11 mmHg LVOT VTI 0.27 m Mean PG 7 mmHg SV 113 ml Dim Index 0.69 SV index 53 ml/m CO 6.8 l/min CI 3.2 l/min/m Mitral Valve: MVA 3.6 cm MV P 1/2 61 msec Tricuspid Valve and estimated PA pressures: TAPSE 2.0 cm . This study was interpreted by an [facility] accredited facility. Final us Young Zayjudi DO ECHO ORD Final Resul t * SCAN-CARDIAC STRIP (07/11/2024 7:57 AM QUAL FIELD MANAGER) us Scanner OTHER Final Result * (ABNORMAL) TROPONIN T (HS) ONE TIME (07/11/2024 6:46 AM QUAL FIELD MANAGER) TROPONIN T HS 4,705(H) 6-15 ng/L ng/L 07/11/2024 7:48 AM QUAL FIELD MANAGER [facility] Blood BLOOD SPECIMEN / Unknown Venipuncture / Unknown 07/11/2024 6:46 AM QUAL FIELD MANAGER 07/11/2024 7:17 AM QUAL FIELD MANAGER Young Forte DO CHEMISTRY Final Resul t Performing Organization Address City/[facility] Co de Phone Number [facility] [address] [place] [address], * LIPID PANEL (07/11/2024 6:46 AM QUAL FIELD MANAGER) CHOLESTEROL,TOTAL 109 100 - 199 mg/dL 07/11/2024 7:48 AM QUAL FIELD MANAGER [facility] Comment: Cholesterol, Total Reference Ranges Desirable <200 mg/dL Borderline 200-239 mg/dL High >=240 mg/dL TRIGLYCERIDES 111 <150 mg/dL 07/11/2024 7:48 AM QUAL FIELD MANAGER [facility] HDL CHOLESTEROL 41 >40 mg/dL 7:48 AM QUAL FIELD MANAGER [facility] NON-HDL CHOLESTEROL 68 <145 mg/dl 07/11/2024 7:48 AM QUAL FIELD MANAGER [facility] CHOL/HDL RATIO 2.66 <4.50 07/11/2024 7:48 AM QUAL FIELD MANAGER [facility] LDL CHOLESTEROL 46 <=130 mg/dL 07/11/2024 7:48 AM QUAL FIELD MANAGER [facility] VLDL CHOLESTEROL 22 <=30 mg/dL 07/12/19 7:48 AM QUAL FIELD MANAGER [facility] Blood BLOOD SPECIMEN / Unknown Venipuncture / Unknown 07/11/2024 6:46 AM QUAL FIELD MANAGER 07/11/2024 7:17 AM QUAL FIELD MANAGER Jonelle You PIECE MEAT TRIMMER CHEMISTRY Final Resul t Performing Organization Address City/[facility]/ZIP Co de Phone Number [facility] [address] [place] [address], * (ABNORMAL) BASIC METABOLIC PANEL (07/11/2024 6:46 AM QUAL FIELD MANAGER) SODIUM 142 136 - 145 mmol/L 07/11/2024 4:54 PM QUAL FIELD MANAGER [facility] POTASSIUM 4.8 3.5 - 5.1 mmol/L 07/11/2024 4:54 PM [facility] CHLORIDE 108(H) 98 - 107 mmol/L 07/11/2024 4:54 PM [facility] CO2,TOTAL 19(L) 22 - 29 mmol/L 07/11/2024 4:54 PM [facility] ANION GAP 15 5 - 18 07/11/2024 4:54 PM [facility] GLUCOSE 108(H) 70 - 99 mg/dL 07/11/2024 4:54 PM [facility] CALCIUM 9.0 8.8 - 10.4 mg/dL 07/11/2024 4:54 PM [facility] Comment: Reference ranges for this test were updated on 03/12/2024 to reflect our healthy population more accurately. Reference range changes are not retroactively applied to results, but previous results using the same methodology can be interpreted in the context of the new reference range. BUN 16 8 - 23 mg/dL 07/11/2024 4:54 PM [facility] CREATININE 1.17 0.70 - 1.20 mg/dL 07/11/2024 4:54 PM [facility] BUN/CREAT RATIO 14 10 - 20 4:54 PM [facility] eGFR 65(L) >90 mL/min/1. 73m2 07/11/2024 4:54 PM [facility] Comment: As of 2021, eGFR is calculated by the CKD-EPI creatinine equation without race adjustment. eGFR can be influenced by muscle mass, exercise, and diet. The reported eGFR is an estimation only and is only applicable if the renal function is stable. As of 07/20/2021, eGFR is calculated by the CKD-EPI creatinine equation without race adjustment. eGFR can be influenced by muscle mass, exercise, and diet. The reported eGFR is an estimation only and is only applicable if the renal function is stable. Blood BLOOD SPECIMEN / Unknown Venipuncture / Unknown 07/11/2024 6:46 AM QUAL FIELD MANAGER 07/11/2024 7:17 AM QUAL FIELD MANAGER us Tanvir Sky MD CHEMISTRY Final Result [facility] [address] [place] [address], [place] * (ABNORMAL) TROPONIN T (HS) ACUTE W/2HR REFLEX (07/11/2024 3:13 AM QUAL FIELD MANAGER) TROPONIN T HS 4,877(H) 6-15 ng/L ng/L 07/11/2024 3:56 AM QUAL FIELD MANAGER [facility] Blood BLOOD SPECIMEN / Unknown Venipuncture / Unknown 07/11/2024 3:13 AM QUAL FIELD MANAGER 07/11/2024 3:36 AM QUAL FIELD MANAGER Narrative [facility] - 07/11/2024 3:56 AM QUAL FIELD MANAGER hs-cTnT (Elecsys Troponin T Gen 5) concentration (s) above the sex-specific 99th percentile (16 ng/L or greater for males or 11 ng/L or greater for females) are indicative of myocardial injury. If initial hs-cTnT <=100 ng/L at presentation, a 0h/2h ABSOLUTE (ng/L) delta change (rising or falling) of >=10 ng/L suggests a significant change, whereas a 0h/2h delta change <=3 ng/L suggests no significant change. If initial hs-cTnT >100 ng/L at presentation, a 0h/2h/ RELATIVE (percent, %) delta change of 20% is suggested to distinguish patients with acute vs. chronic myocardial injury. There are multiple etiologies that can cause hs-cTnT increases above the 99th percentile (myocardial injury) other than acute myocardial infarction. Clinical context and careful clinical evaluation are critical for diagnosis and risk-stratification. The diagnosis of acute myocardial infarction requires a rising and/or falling pattern in hs-cTnT concentrations with at least one value above the sex-specific 99th percentile PLUS at least one of the following clinical criteria: ischemic symptoms, new or presumed new significant ST-T wave changes or new LBBB, development of pathological Q waves, imaging evidence of new loss of viable myocardium or new regional wall motion abnormality, or identification of intracoronary atherothrombosis or an acute angiographic culprit on coronary angiography. In appropriate low-risk patients with a non-ischemic electrocardiogram without active chest pain with a symptom onset >3-hours without recurrence, a single initial hs-cTnT<6 ng/L identifies patient with a very low risk in emergency department patient population. Young Forte DO CHEMISTRY Final Resul t [facility] [address] [place] [address], * (ABNORMAL) CBC WITH AUTO DIFFERENTIAL (07/11/2024 3:13 AM QUAL FIELD MANAGER) [facility] WHITE BLOOD COUNT 10.7 4.5 - 11.0 thou/cu mm 07/11/2024 5:20 PM QUAL FIELD MANAGER [facility] RED BLOOD COUNT 5.26 4.30 - 5.90 mil/cu mm 07/11/2024 5:20 PM QUAL FIELD MANAGER [facility] HEMOGLOBIN 15.2 13.5 - 17.5 g/dL 07/11/2024 5:20 PM [facility] HEMATOCRIT 48.3 37.0 - 53.0 % 07/11/2024 5:20 PM QUAL FIELD MANAGER [facility] MCV 90 80 - 100 fL 07/11/2024 5:20 PM QUAL FIELD MANAGER [facility] MCH 29.7 26.0 - 34.0 pg 07/11/2024 5:20 PM QUAL FIELD MANAGER [facility] MCHC 32.3 32.0 - 36.0 g/dL 07/11/2024 5:20 PM QUAL FIELD MANAGER [facility] RDW 14.3 11.5 - 15.5 % 07/11/2024 5:20 PM QUAL FIELD MANAGER [facility] PLATELET COUNT 181 140 - 440 thou/cu mm 07/11/2024 5:20 PM QUAL FIELD MANAGER [facility] MPV 9.6 6.5 - 11.0 fL 07/11/2024 5:20 PM QUAL FIELD MANAGER [facility] NRBC 0.0 % 07/11/2024 5:20 PM QUAL FIELD MANAGER [facility] ABS NRBC 0.0 thou /cu mm 07/11/2024 5:20 PM [facility] % NEUT 75.4 % 07/11/2024 5:20 PM [facility] % LYMPH 14.6 % 07/11/2024 5:20 PM [facility] % MONO 8.0 % 07/11/2024 5:20 PM [facility] % EOS 0.9 % 07/11/2024 5:20 PM [facility] % BASO 0.7 % 07/11/2024 5:20 PM [facility] % IMMATURE GRAN (METAS,MYELOS,ME OS) 0.4 % 07/11/2024 5:20 PM [facility] ABSOLUTE NEUTROPHILS 8.1(H) 1.7 - 7.0 thou/cu mm 07/11/2024 5:20 PM [facility] ABSOLUTE LYMPHOCYTES 1.6 0.9 - 2.9 thou/cu mm 07/11/2024 5:20 PM [facility] ABSOLUTE MONOCYTES 0.9(H) <0.9 thou/cu mm 07/11/2024 5:20 PM [facility] ABSOLUTE EOSINOPHILS 0.1 <0.5 thou/cu mm 07/11/2024 5:20 PM [facility] ABSOLUTE BASOPHILS 0.1 <0.3 thou/cu mm 07/11/2024 5:20 PM [facility] ABSOLUTE IMMATURE GRANULOCYTES(MET ,MYELOS,PROS) 0.0 <0.3 thou/cu mm 07/11/2024 5:20 PM [facility] Blood BLOOD SPECIMEN / Unknown Venipuncture / Unknown 07/11/2024 3:13 AM QUAL FIELD MANAGER 07/11/2024 3:36 AM [facility] - 07/11/2024 5:20 PM QUAL FIELD MANAGER Every morning while on IV heparin. Necessary every morning while on IV heparin. us Tanvir kSy MD HEMATOLOGY Final Result Performing Organization Address City/[facility] Co de Phone Number [facility] [address] [place] [id number], * PLATELET COUNT (07/11/2024 3:13 AM QUAL FIELD MANAGER) PLATELET COUNT 181 140 - 440 thou/cu mm 07/11/2024 3:40 AM QUAL FIELD MANAGER [facility] MPV 9.6 6.5 - 11.0 fL 07/11/2024 3:40 AM QUAL FIELD MANAGER [facility] Blood BLOOD SPECIMEN / Unknown Venipuncture / Unknown 07/11/2024 3:13 AM QUAL FIELD MANAGER 07/11/2024 3:36 AM QUAL FIELD MANAGER Narrative [facility] - 07/11/2024 3:40 AM QUAL FIELD MANAGER Every morning while on IV heparin. Necessary every morning while on IV heparin. us Young Forte DO HEMATOLOGY Final Resul t Performing Organization Address [facility] Co de Phone Number [facility] [address] [address], [place] * SCAN-CARDIAC STRIP (07/11/2024 2:57 AM QUAL FIELD MANAGER) us Scanner OTHER Final Result * SCAN-COLONOSCOPY (11/24/2023 12:00 AM CDT) us Scanner OTHER Final Result from Last 3 Months or Most Recently Relevant to Health Maintenance Insurance MEDICARE PART A HB ONLY [facility] MR MEDICARE PROVIDER BASED MR BC [place] Advance Directives * Full Code (Latest Code Status on File) Date Activated Date Inactivated Comments 07/11/2024 3:07 AM 07/12/2024 4:56 PM Question Answer Comments Code Status Discussion: Reviewed Preferences * Full Code Date Activated Date Inactivated Comments 08/23/2023 9:17 [...] Comments 11/29/2018 11:51 AM 11/29/2018 6:34 PM Care Teams Internal Recruiter Relationship Specialty Start Date End Date Lyle Perry MD [address] [place] [address] PCP - General Family Practice 10/07/20
--- OUTSIDE RECORDS SUMMARY | 2024-09-13 09:15 | XMS_ITS | Clinical Summary ---
Author Organization [facility] [employer] Address [address], [place] [address] Care Team Providers Care Tester Wafer Substrate Name Role Phone Lyle Perry MD Primary Care Provider [phone] Source Comments You are receiving this document as you are listed as the primary care provider,follow-up provider, or the patient has been referred to you for consultation.This is in compliance with the Medicare and[facility] Incentive Program,which states Providers who transition their patient to another setting of careor provider of care or refers their patient to another provider of care shouldprovide summary care record for each transition of care or referral. [employer] Allergies Active Allergy Reactions Criticality Noted Date [...] TABS Take 1 Capsule by mouth. Active [place]-3 Fatty Acids ([employer] [place]-3 GUMMY FISH/DHA) 113.5 [...] Medicare Welcome Visit 1950 Cholesterol 1984 Pneumococcal Vaccine 50+ Yrs (1 of 1 - PCV) 11/08/1999 Zoster/Shingles Vaccine (1 o f 2) 11/08/1999 COVID-19 Vaccine (1 - 2023-2 5 season) 2024 RSV Vaccine (1 - 1-dose 75+ series) 2024 Influenza Vaccine (Season Ended) 2025 DTaP/Tdap/Td Vaccine (2 - Tdap) 06/12/2027 06/12/2017, 11/26/2004 HepA Vaccine Aged Out No longer eligi ble based on patient's age to complete this topic HepB Vaccine Aged Out No longer eligi ble based on patient's age to complete this topic Hib Vaccine Aged Out No longer eligi ble based on patient's age to complete this topic IPV (Polio) Vaccine Aged Out No longe r eligible based on patient's age to complete this topic MCV4 Vaccine Aged Out No longer eligi ble based on patient's age to complete this topic Meningococcal B Vaccine Aged Out No l onger eligible based on patient's age to complete this topic Insurance [facility] MEDICARE ADVANTAGE [facility] MEDICARE ADVANTAGE Care Teams Tester Wafer Substrate Relationship Specialty Start Date End Date Lyle Perry MD [address] [place] [address] PCP - General Family Practice 12/30/22
--- NOTE | 2024-09-13 09:31 | ED.GENADULT ---
HPI - General Adult General Date Seen: 09/13/24 Chief complaint: Hypertension Stated complaint: High BP185 Time Seen by Provider: 09/13/24 09:30 History of Present Illness HPI narrative: 73 yo M with a past medical history of coronary artery disease, previous NSTEMI, aortic stenosis, hypertension, GERD, presenting to the ER today because of high blood pressure. Actually he had an episode of dizziness this morning he was walking out from [place] [employer] and then subsequently checked his blood pressure and found to be elevated. He has a medical history of coronary disease with recent stenting in July this year,he has had a previous TAVR. Previous CABG in 2018. patient reports that he has had a busy week this week. He has had to have wisdom tooth extraction and also a trigger finger surgery which was done yesterday. His notes that at the trigger finger surgery yesterday his nurses noted that he had an irregular heart rhythm. This apparently has not been a problem for him in the past. He also has a blood pressure cuff at home which told him that his heart rhythm was irregular yesterday. He also notes that from time to time over the course of his life he can feel when his blood pressure goes high because he gets a flushed feeling in his face and upper torso. He felt like his blood pressure was high few days ago and it was elevated at about 160 or so systolic. He does not really feel episodes of palpitations or any fainting spells. He was up early this morning and feeling relatively well. He went to his dentist for a checkup because of a dry socket from his wisdom tooth extraction [facility] and while in the parking lot there he abruptly had a feeling where he felt, Woah any felt dizzy. He felt a little bit unsteady, not really spinning, not really presyncopal. He did really have any other definite symptoms. He was not nauseous. He was able to get himself home in even at home he still felt a little bit dizzy. He did have a mild frontal headache which she thinks might be a sinus thing. . Vision has been normal. Hears been normal. No focal numbness or weakness in his arms or legs. No neck pain. Headache was not abrupt or severe in onset. He also checked his blood pressure and was elevated about 185 systolic. He felt a little bit of pressure in his chest which he thought was probably from his high blood pressure. He call the phone triage nurse line and was told to come here to the ER. Now that he is here in the ER he says he is feeling quite a bit better but not completely back to normal. he has not had any recent leg swelling. per record he was seen here in the ER on 07/10/2024 after an episode of exertional chest pain with shoveling. The lab work showed initially normal troponin but 2nd troponin rising up to 0.6. He was transferred to [facility]. According to medical records from his last primary care checkup on 07/15/2024 he is he is on metoprolol 5 XL 50 mg p.o. daily.. His med list includes aspirin 81 mg, clopidogrel, Atorvastatin, vitamin-C, vitamin-B, calcium, vitamin-D, Co Q10, testosterone, Most recent cardiology clinic checkup was August 22, about 2 weeks ago. Per that note... HPI: Ryan Bishop is a 73 y.o. male with history of s/p TAVR (08/2023), CAD s/p CABG (2017) and PCI to LCx and OM1, HTN, HLD, TIA, CKD3, pre-diabetes. ? Patient reports developing bilateral chest pain after shoveling wet snow on 07/11/2024. States he initially thought pain was muscular but it was persistent so eventually presented to ED. Pain initially sharp, while in ED transitioned to aching/pressure pain. He reports he has been in good health up until today, no recent illnesses. States this pain is different than prior chest pain, he had pressure (fingernails on inside of chest down his chest) feeling in his chest before presentation leading to CABG. ? In ED, troponin I 0.01 > 0.6 (ref < 0.04). EKG without acute ischemia. CXR with possible minimal interstitial edema. He was started on heparin and nitro infusions with relief of chest pain. Transferred to [facility] for further evaluation. HS troponin T 4,877. ? 07/11/24- echo with LVEF 60-65, TAVr with 34 mm Evolut Fx. No stenosis [V-max 1.7 m/s and MG 7 mmHg] and no AI. Normal RAP estimate. No pericardial effusion. ? Cor angio with late stent thrombosis in the obtuse marginal, s/p ELIAS with good result, all grafts patent. ? He follows up today in the clinic. Doing well denying any acute cardiac concerns. Blood pressure is mildly elevated. Measures it daily at home and it averages 125/70 mmHg. ? He denies exertional chest pain since PCI. Denies exertional shortness of breath. Denies near-syncope or syncope, palpitations, PND, orthopnea, lower extremity edema or claudication. No concerns with right groin access site. ? Has been compliant with medications. DAPT for 1 year with ASA and Plavix. He is on Lipitor 40 mg once daily. He is also on metoprolol succinate. ? Recommendation for cardiac rehab but he chose not to enroll. Both him and his hike 2 miles every day (hills and flat road). Twice per week they go to a fitness club and he does elliptical and treadmill. Related Data Home Medications ?Medication ?Instructions ?Recorded ?Confirmed ascorbic acid (vitamin C) 1,000 mg 1 g PO QDAY 04/27/22 09/13/24 tablet aspirin 81 mg capsule 81 mg PO QDAY 04/27/22 09/13/24 blm joint support PO DAILY 04/27/22 09/04/24 calcium citrate 250 mg PO BID 04/27/22 09/13/24 cholecalciferol (vitamin D3) 50 See Rx Instructions PO QDAY 04/27/22 09/13/24 mcg (2,000 unit) capsule coQ10 (ubiquinol) 100 mg capsule 200 mg PO QDAY 04/27/22 09/04/24 cyanocobalamin (vitamin B-12) 500 500 mcg PO QDAY 04/27/22 09/13/24 mcg lozenges omega 800 mg 720 mg PO DAILY 04/27/22 09/13/24 prasterone (DHEA) 50 mg tablet 100 mg PO QDAY 04/27/22 09/13/24 prostate support PO DAILY 04/27/22 09/04/24 pyridoxine (vitamin B6) 100 mg 50 mg PO QDAY 04/27/22 09/04/24 tablet triple boran bones 6 mg PO BID 04/27/22 09/13/24 vit e PO DAILY 04/27/22 09/04/24 zinc 22 mg PO DAILY 04/27/22 09/13/24 clopidogrel 75 mg tablet 75 mg PO DAILY 07/15/24 09/13/24 Previous Rx's ?Medication ?Instructions ?Recorded atorvastatin 40 mg tablet 40 mg PO QHS #90 tabs 03/25/24 testosterone 50 mg/5 gram (1 %) 1 tube transdermal QAM #90 ea 03/28/24 transdermal gel fluticasone propionate 50 2 spray intranasal QDAY #16 grams 04/11/24 mcg/actuation nasal spray,suspension (Flonase Allergy Relief) metoprolol succinate 50 mg 50 mg PO QDAY #90 tabs 06/17/24 tablet,extended release 24 hr (Toprol XL) famotidine 20 mg tablet 20 mg PO BID #180 tabs 07/18/24 gabapentin 100 mg capsule 100 - 300 mg (1 - 3 x 100 mg) PO 07/19/24 QDAY #90 caps Allergies Allergy/AdvReac Type Severity Reaction Status Date / Time ciprofloxacin Allergy Intermediate Depression Verified 09/13/24 09:25 clindamycin Allergy Intermediate ulcer Verified 09/13/24 09:27 stomach and diarrhea levofloxacin (From Levaquin) Allergy Unknown Depression Verified 09/13/24 09:25 Penicillins Allergy Unknown Verified 09/13/24 09:25 sulfamethoxazole (From AdvReac Verified 09/13/24 09:25 Bactrim) trimethoprim (From Bactrim) AdvReac Verified 09/13/24 09:25 [facility] Medical History (Updated 09/13/24 @ 14:00 by Erik Echols MD) Insomnia ?G47.00 - Insomnia, unspecified (ICD-10) Non-ST elevation (NSTEMI) myocardial infarction (10/14/17) ?I21.4 - Non-ST elevation (NSTEMI) myocardial infarction (ICD-10) Drug intolerance ?Z78.9 - Other specified health status (ICD-10) Acute kidney injury ?N17.9 - Acute kidney failure, unspecified (ICD-10) Pulmonary nodule ?R91.1 - Solitary pulmonary nodule (ICD-10) COVID-19 ?U07.1 - COVID-19 (ICD-10) History of renal calculi ?Z87.442 - Personal history of urinary calculi (ICD-10) Surgical History (Updated 09/13/24 @ 11:42 by Olive Al ~ VISUAL EDUCATOR, VISUAL EDUCATOR) S/P trigger finger release (09/12/24) ?Z98.890 - Other specified postprocedural states (ICD-10) History of appendectomy ?Z90.49 - Acquired absence of other specified parts of digestive tract (ICD-10) S/P TAVR (transcatheter aortic valve replacement) ?Z95.2 - Presence of prosthetic heart valve (ICD-10) 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) ?Z95.1 - Presence of aortocoronary bypass graft (ICD-10) Status post laparoscopic appendectomy (09/27/18) ?Z90.49 - Acquired absence of other specified parts of digestive tract (ICD-10) History of tonsillectomy ?Z90.89 - Acquired absence of other organs (ICD-10) History of colonoscopy with polypectomy ?Z98.890 - Other specified postprocedural states (ICD-10) ?Z86.010 - Personal history of colonic polyps (ICD-10) History of cataract extraction (12/17/14) ?Z98.49 - Cataract extraction status, unspecified eye (ICD-10) History of carpal tunnel surgery of right wrist (01/17/19) ?Z98.890 - Other specified postprocedural states (ICD-10) Family History Father GI bleeding Mother High blood pressure Social History Narrative: He lives with his , Fariha, in [place]. 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 Code status is full. He does not smoke. He rarely drinks alcohol. What is your current living situation?: I presently have a place to live Problems where you live: no known problems Problems where you live details: n/a In the past 12 months, utilities in danger of being shut off: no In past 12 months, lack of transportation kept you from medical appts, meetings, work, or getting things needed for daily living: no In the past 12 mos, have been you worried that your food would run out before you had money to buy more?: never true In the past 12 mos, the food you bought just didn't last and you didn't have money to buy more?: never true Smoking Status: Never smoker Do you use any of these nicotine containing products: None Second hand tobacco smoke exposure: No How often do you have a drink containing alcohol: 2-4 times a month How many standard drinks containing alcohol do you have on a typical day: 1 or 2 How often do you have six or more drinks on one occasion: Never AUDIT-C Alcohol total score: 2 Non-prescribed substance use: denies use Caffeine: Yes (coffee) How often does anyone, including family, friends and others, physically hurt you: never How often does anyone, including family, friends and others, insult or talk down to you: never How often does anyone, including family, friends and others, threaten you with harm: never How often does anyone, including family, friends and others, scream or curse at you: never service: Yes ([employer]) Exam Narrative: Exam Narrative: Constitutional: Appears well-developed and well-nourished. Alert. Conversant. Non toxic. HENT: Head: Atraumatic. Nose: Nose normal. Mouth/Throat: Oral mucosa is clear and moist. no trismus. Pharynx normal. Tonsils symmetric. No tonsillar enlargement, erythema, or exudate. Eyes: Conjunctivae normal. EOM normal. Pupils equal, round, and reactive to light. No scleral icterus. Neck: Normal range of motion. Neck supple. No tracheal deviation present. No JVD Cardiovascular: Normal rate, regular rhythm. No gallop. No friction rub. subtle systolic murmur heard. Symmetric radial artery pulses Pulmonary/Chest: Effort normal. No stridor. No respiratory distress. No wheezes. No rales. No rhonchi . No tenderness. Abdominal: Soft. No distension. No mass. No tenderness. No rebound. No guarding. Musculoskeletal: RUE: Normal range of motion. No tenderness. No deformity LUE: Normal range of motion. No tenderness. No deformity RLE: Normal range of motion. No edema. No tenderness. No deformity LLE: Normal range of motion. No edema. No tenderness. No deformity Lymph: No cervical adenopathy. Neurological: Mental status normal. Attention normal. Alert and oriented x3. GCS 15. Memory normal. Speech fluent. Cognition normal. Cranial Nerves intact II-XII except I did not formally test gag or visual acuity. EOMI. Palate elevates symmetrically and tongue protrudes in the midline. Strength: 5/5 trapezius on the right and left 5/5 deltoid on the right and left 5/5 biceps on the right and left 5/5 triceps on the right and left 5/5 matlab developer on the right and left 5/5 thumb opposition on the right and left 5/5 finger abduction on the right and left 5/5 hip flexors (L3) on the right and left 5/5 quadriceps (L4) on the right and left 5/5 tibialis anterior on the right and left 5/5 EHL (L5) on the right and left 5/5 gastrocnemius (S1) on the right and left 5/5 hamstring on the right and left Sensation intact to light touch in both upper extremities (C4-T1) Sensation intact to light touch in Both lower extremities (L4-S1). Finger to nose and coordination normal. Skin: Skin is warm and dry. No rash noted. No pallor. Normal capillary refill. Psychiatric: Normal mood. Normal affect. Const: Vital Signs, click to edit/add: Vital Signs - 24 hr 09/13/24 09:14 09/13/24 09:48 09/13/24 09:48 Temperature 98.4 F Pulse Rate 70 70 Pulse Rate [Left P ulse Oximeter] 71 Respiratory Rate 18 12 12 Blood Pressure 139/87 139/87 Blood Pressure [Le ft Upper Arm] 175/88 H Pulse Oximetry 98 97 97 Oxygen Delivery [facility] Room Air 09/13/24 09:48 09/13/24 09:49 09/13/24 10:00 Temperature Pulse Rate 70 72 72 Pulse Rate [Left P ulse Oximeter] Respiratory Rate 12 14 13 Blood Pressure 139/87 Blood Pressure [Le ft Upper Arm] Pulse Oximetry 97 96 95 [facility] 10:02 09/13/24 10:15 09/13/24 10:30 Temperature Pulse Rate 69 70 73 Pulse Rate [Left P ulse Oximeter] Respiratory Rate 14 Blood Pressure 142/84 H Blood Pressure [Le ft Upper Arm] Pulse Oximetry 96 97 97 [facility] 09/13/24 10:32 09/13/24 10:52 09/13/24 10:56 Temperature Pulse Rate 68 64 60 Pulse Rate [Left P ulse Oximeter] Respiratory Rate 15 Blood Pressure 151/85 H 154/77 H Blood Pressure [Le ft Upper Arm] Pulse Oximetry 96 97 96 Oxygen Delivery Me thod 09/13/24 11:00 09/13/24 11:02 09/13/24 11:15 Temperature Pulse Rate 71 60 69 Pulse Rate [Left P ulse Oximeter] Respiratory Rate 16 18 Blood Pressure 140/87 H Blood Pressure [Le ft Upper Arm] Pulse Oximetry 96 97 96 Oxygen Delivery Me thod 09/13/24 11:30 09/13/24 11:32 09/13/24 11:33 Temperature Pulse Rate 63 59 L 61 Pulse Rate [Left P ulse Oximeter] Respiratory Rate 14 19 18 Blood Pressure 133/82 Blood Pressure [Le ft Upper Arm] Pulse Oximetry 97 97 96 Oxygen Delivery Me thod 09/13/24 11:45 09/13/24 12:00 Temperature Pulse Rate 60 68 Pulse Rate [Left P ulse Oximeter] Respiratory Rate 11 L 16 Blood Pressure Blood Pressure [Le ft Upper Arm] Pulse Oximetry 97 98 Oxygen Delivery Me thod Course Vital Signs Vital signs: Initial Vital Signs Temperature 98.4 F 09/13/24 09:14 Temperature Source Temporal Artery Scan 09/13/24 09:14 Pulse Rate 71 09/13/24 09:14 Respiratory Rate 18 09/13/24 09:14 Blood Pressure 175/88 H 09/13/24 09:14 Blood Pressure Mean 117 H 09/13/24 09:14 Blood Pressure Position Sitting 09/13/24 09:14 Pulse Oximetry 98 09/13/24 09:14 Oxygen Delivery Method Room Air 09/13/24 09:14 Vital Signs Temperature 98.4 F 09/13/24 09:14 Pulse Rate 71 09/13/24 09:14 Respiratory Rate 18 09/13/24 09:14 Blood Pressure 175/88 H 09/13/24 09:14 Pulse Oximetry 98 09/13/24 09:14 Oxygen Delivery Method Room Air 09/13/24 09:14 Temperature 98.4 F 09/13/24 09:14 Pulse Rate 68 09/13/24 12:00 Respiratory Rate 16 09/13/24 12:00 Blood Pressure 133/82 09/13/24 11:32 Pulse Oximetry 98 09/13/24 12:00 Oxygen Delivery Method Room Air 09/13/24 09:14 Medications Administered Medications: Discontinued Medications Generic Name Dose Route Start Last Admin Trade Name Jannie PRN Reason Stop Dose Admin Sodium Chloride 1,000 mls @ 1,000 mls/hr 09/13/24 10:30 09/13/24 12:01 0.9 % Sodium Chloride 1000 Ml IV 09/13/24 11:29 Infused .Q1H TIMBO Infusion Medical Decision Making MDM Narrative Medical decision making narrative: This patient presents for evaluation of an episode of dizziness and lightheadedness that occurred this morning he was walking out of [place]. He also had an elevated blood pressure Measurement at home. differential for his dizziness is quite broad. He is on aspirin and Plavix and does have a mild headache but no other focal neurologic deficits to suggest that he has intracranial bleeding. No recent or distant head trauma. He has a history of coronary disease and had a stent about 2 months ago and prior to that had CABG several years ago. He is not having any chest pain at all today or lately. EKG is nonischemic and troponin is normal. given the a time elapsed since his episode of dizziness this morning we did check a 2 hour delta troponin here in the ER. He does have some mild sinus symptoms so we did check influenza and COVID in those are negative. Thyroid studies are normal. Lactic acid is normal. Electrolytes including calcium, potassium are normal. blood sugar is normal. Lactic acid is normal. Kidney function is at baseline. Hemoglobin is actually slightly at the top end of normal at 16.7. There is [] history of hypertension in the past. No concerning symptoms of chest pain , severe headache, neurologic deficits. The workup here is negative and the patient does not have any clinical, laboratory, ecg or historical signs of end-organ dysfunction. There is no signs of hypertensive emergency or urgency. With his episode of dizziness also consider possible cardiac arrhythmia. His sinus rhythm here in the ER. 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 Lab Data Labs: Lab Results 09/13/24 09/13/24 09/13/24 Range/Units 10:28 11:00 13:06 WBC 7.48 (4.50-11.00) K/uL RBC 5.76 (4.30-5.90) m/uL Hgb 16.7 (13.5-17.5) gm/dL Hct 52.3 (37.0-53.0) % MCV 91 (80-100) fL MCH 29 (26-34) pg MCHC 32 (32-36) gm/dL RDW Coeff of Lida 13.1 (11.5-15.5) % Plt Count 168 (140-440) K/uL Neut % (Auto) 76.2 H (42.0-72.0) % Lymph % (Auto) 13.9 L (20-44) % [place] % (Auto) 7.6 (0.0-11.0) % Eos % (Auto) 1.2 (0.0-7.0) % Baso % (Auto) 0.7 (0.0-3.0) % Neut # (Auto) 5.70 (1.7-7.0) K/uL Lymph # (Auto) 1.00 (0.90-2.90) K/uL [place] # (Auto) 0.60 (0.00-0.90) K/UL Eos # (Auto) 0.09 (0.00-0.50) K/uL Baso # (Auto) 0.05 (0.00-0.30) K/uL Abs Immat Gran (auto) 0.03 (0.00-0.30) K/uL Imm/Tot Granulo (auto) 0.4 % Sodium 142 (135-149) mmol/L Potassium 4.9 (3.6-5.1) mmol/L Chloride 106 (96-114) mmol/L Carbon Dioxide 26 (20-32) mmol/L Anion Gap 10 (7-15) mEq/L BUN 20 (7-30) mg/dL Creatinine 1.3 (0.5-1.5) mg/dL Estimated Creat Clear 54.72 Estimated GFR 58 ml/min Glucose 79 (60-115) mg/dL Lactate 1.1 (0.5-1.9) mmol/L Calcium 9.2 (8.4-10.6) mg/dL TSH 1.390 (0.270-4.200) uIU/mL SARS-CoV-2 (PCR) Negative SARS-CoV-2 (Negative) Influenza Type A (PCR) Negative PCR FLU A (Negative) Influenza Type B (PCR) Negative PCR FLU B (Negative) POC Troponin I 0.01 0.01 (0.01-0.04) ng/ml Imaging Data Chest x-ray: Attestation: I have reviewed the pertinent imaging results. Radiologist's impression: Impression: Chronic interstitial change with likely mild superimposed pulmonary vascular congestion. ECG Data Attestation: I personally reviewed and interpreted this ECG as follows: Interpretation: Normal sinus rhythm Rate: 69 ID: [id number] QRS axis: normal axis. No pathologic Q-waves ST segment/T wave: no ST segment elevation or depression. QTc: 430 EKG 2. 11:13 a.m. Normal sinus rhythm Rate: 59 ID: [id number] QRS axis: normal axis. No pat ST segment/T wave: hologic Q-waves. No ST segment elevation or depression. QTc: 403 Discharge Plan Discharge Clinical Impression: Dizziness, Hypertension Patient Disposition: Home, Self-Care Condition: Stable Instructions: Hypertension (ED), Dizziness (ED) Additional Instructions: As we discussed, monitor your symptoms carefully. if you have more episodes of dizziness or lightheadedness or if you develop other concerning symptoms such as chest pain, shortness of breath, please return to the ER immediately to be rechecked. Please follow-up with your regular doctor for recheck next week, even if your getting better. Prescriptions: No Action clopidogrel 75 mg tablet 75 mg PO DAILY aspirin 81 mg capsule 81 mg PO QDAY blm joint support 715 mg PO DAILY calcium citrate 250 mg calcium tablet 250 mg PO BID cholecalciferol (vitamin D3) 50 mcg (2,000 unit) capsule See Rx Instructions PO QDAY Rx Instructions: 2 am, 1 pm orally every day; prasterone (DHEA) 50 mg tablet 100 mg PO QDAY omega 800 mg 720 mg PO DAILY prostate support PO DAILY triple boran bones 3 mg 6 mg PO BID coQ10 (ubiquinol) 100 mg capsule 200 mg PO QDAY cyanocobalamin (vitamin B-12) 500 mcg lozenge 500 mcg PO QDAY pyridoxine (vitamin B6) 100 mg tablet 50 mg PO QDAY ascorbic acid (vitamin C) 1,000 mg tablet 1 g PO QDAY vit e 100 mcg PO DAILY zinc 22 mg 22 mg PO DAILY metoprolol succinate [Toprol XL] 50 mg tablet extended release 24 hr 50 mg PO QDAY Qty: 90 3RF fluticasone propionate [Flonase Allergy Relief] 50 mcg/actuation spray,suspension 2 spray intranasal QDAY Qty: 16 2RF Rx Instructions: administer into each nostril atorvastatin 40 mg tablet 40 mg PO QHS Qty: 90 2RF testosterone 50 mg/5 gram (1 %) gel 1 tube transdermal QAM Qty: 90 1RF famotidine 20 mg tablet 20 mg PO BID Qty: 180 2RF gabapentin 100 mg capsule 100 - 300 mg PO QDAY Qty: 90 1RF Rx Instructions: Start at 1 a night but may increase to 3 at night based on response to medication Follow Up/Referrals: Lyle Perry MD [Primary Care Provider] - Stand Alone Forms: [facility] Info Instructions
--- NOTE | 2024-09-13 10:29 | CRLHL7_ITS ---
For Patients: As a result of the Century Cures Act, medical imaging exams and procedure reports are released immediately into your electronic medical record. You may view this report before your referring provider. If you have questions, please contact your health care provider. Indication: Dizziness and chest pressure Comparison: Single-view chest July 10, 2024 Technique: PA and lateral views of the chest Findings: There are diffusely increased interstitial markings seen throughout the bilateral hemithoraces with basilar atelectasis and parenchymal scar. There is no pneumothorax right pleural effusion. The cardiac silhouette is mildly prominent. The bony thorax is grossly intact. Impression: Chronic interstitial change with likely mild superimposed pulmonary vascular congestion. Dictated by Ed Ahmadi MD @ 09/13/2024 11:05:28 AM (Electronically Signed)
--- OUTSIDE RECORDS SUMMARY | 2024-09-13 10:48 | XMS_ITS | Clinical Summary ---
Author Organization [facility] [facility] Address [address] [place] [address] Care Team Providers Care Boil Off Worker Name Role Phone Lyle Perry MD Primary Care Provider [phone] Allergies Active Allergy Reactions Criticality Noted Date [...] Tablets by mouth two times daily. Triple [place] Bones Active coenzyme q10 (Co Q-10) 100 mg cap Take 100 mg by mouth two times daily. Ubiquinol [facility] Active clopidogreL (PLAVIX) 75 mg tabletIndication s:NSTEMI (non-ST elevated myocardial infarction) (HC) Take 1 Tablet (75 mg) by mouth once daily. Do not stop taking or miss doses for minimum one year/ until OK'd by pinion staker. 30 Tablet 11 07/12/2024 2:05 PM CHAIN TESTING MACHINE OPERATOR 07/14/19 25 Active gabapentin 100 mg capsule Take 100 mg by mouth once daily. 07/20/19 25 Active nitroglycerin 0.4 mg sublingual tabletIndication s:Coronary artery disease, unspecified vessel or lesion type, unspecified whether angina present, unspecified whether minto or transplanted heart,Coronary artery disease involving minto coronary artery without angina pectoris, unspecified whether minto or transplanted heart Place 1 Tablet (0.4 mg) under the tongue every 5 minutes if needed for Chest Pain. 25 Tablet 3 08/23/19 25 Active metoprolol succinate 50 mg sustained-releas e tabletIndication s:Coronary artery disease, unspecified vessel or lesion type, unspecified whether angina present, unspecified whether minto or transplanted heart,NSTEMI (non-ST elevated myocardial infarction) (HC) Take 1 Tablet (50 mg) by mouth once daily. 90 Tablet 3 08/23/19 25 Active nitroglycerin (NITROSTAT) 0.4 mg sublingual tabletIndication s:Coronary artery disease involving minto coronary artery without angina pectoris, unspecified whether minto or transplanted heart Place 1 Tablet (0.4 [...] Type Department Care Team Description 09/02/2024 Telephone [facility] [place] [place] [address] [place] [phone] Ramo Langley MD Care Coordination (Pre Procedure - Oral Surgeon office) 08/22/2024 2:30 PM CDT Office Visit [facility] [address] [facility] [address] [place] [address] Daniel, AMAN Sanchez Follow Up (Hostpital follow up - D/S WAS 09/11(4-6 week follow up Coronary artery disease, unspecified vessel or lesion type, unspecified whether angina present, unspecified whether minto or transplanted heart//Pt states he is doing well-denies cardiac sx) 08/22/2024 Travel 08/17/2024 Travel 07/11/2024 2:25 AM CHAIN TESTING MACHINE OPERATOR - 07/12/2024 2:51 PM CHAIN TESTING MACHINE OPERATOR Hospital Encounter [facility] [address] [place] [address] [facility] [place] [place] DO Clements, Lauren Elise, MD French, Rudy Govea MD NSTEMI (non-ST elevated myocardial infarction) (HC) (Primary Dx); Cardiovascular symptoms; Coronary artery disease, unspecified vessel or lesion type, unspecified whether angina present, unspecified whether minto or transplanted heart Discharge Disposition: Home Self Care 07/11/2024 Travel 07/10/2024 Telephone [facility] [address] [place] [address] Harmeet Rodriguez MD from Last 3 Months [...] on file Legal Sex Male 6:26 AM CHAIN TESTING MACHINE OPERATOR Gender Identity Not on file Sexual Orientation Not on file Obstetrics History Last Filed Vital Signs Vital Sign Reading Time Taken Comments Blood Pressure 146/78 08/22/2024 2:25 PM CDT Pulse 74 08/22/2024 2:25 PM CDT Temperature 36.8 C (98.2 F) 07/12/2024 8:03 AM CHAIN TESTING MACHINE OPERATOR Respiratory Rate 16 07/12/2024 8:03 AM CHAIN TESTING MACHINE OPERATOR Oxygen Saturation 96% 08/22/2024 2:25 PM CDT [...] Completed 06/12/2017 Medical Devices Implanted Type Area Magnaflux Operator Device Identifier Shelf Expiration Date Model / Serial / Lot Stent Uret [id number] Silhouette - [id number] Implanted:Qty: 1 on 11/29/2018 by Vladimir Elliott MD at [facility] Left: [employer]va 04/08/2021 [id number] / / [id number] Procedures Procedure Name Priority Date/Time Associated Diagnosis Comments CREATININE ALEXANDER 07/12/2024 8:13 AM CHAIN TESTING MACHINE OPERATOR MAGNESIUM Early AM 07/12/2024 8:13 AM CHAIN TESTING MACHINE OPERATOR SODIUM Early AM 07/12/2024 8:13 AM CHAIN TESTING MACHINE OPERATOR POTASSIUM Early AM 07/12/2024 8:13 AM CHAIN TESTING MACHINE OPERATOR EKG 12 LEAD Early AM 07/12/2024 6:13 AM CHAIN TESTING MACHINE OPERATOR SCAN-CARDIAC STRIP 07/12/2024 4: 53 AM CHAIN TESTING MACHINE OPERATOR APTT Timed 07/11/2024 8:01 PM CHAIN TESTING MACHINE OPERATOR SCAN-CARDIAC STRIP 07/11/2024 7: 30 PM CHAIN TESTING MACHINE OPERATOR HCHG ACTIVATED CLOTTING TM CV Timed 07/11/2024 7:00 PM CHAIN TESTING MACHINE OPERATOR HCHG ACTIVATED CLOTTING TM CV Timed 07/11/2024 6:49 PM CHAIN TESTING MACHINE OPERATOR CVL CORONARY ANGIOGRAM POSS PCI Routine 07/11/2024 6:33 PM CHAIN TESTING MACHINE OPERATOR Cardiovascular symptoms HEMOGLOBIN STAT 07/11/2024 4:41 PM CHAIN TESTING MACHINE OPERATOR APTT Timed 07/11/2024 11:53 AM CHAIN TESTING MACHINE OPERATOR SCAN CORRESP-EKG RESULTS 07/11/2024 11:49 AM CHAIN TESTING MACHINE OPERATOR SCAN CORRESP-IMAGING 07/11/2024 11:49 AM CHAIN TESTING MACHINE OPERATOR ECHO TTE COMPLETE WO CONTRAST Routine 07/11/2024 10:57 AM CHAIN TESTING MACHINE OPERATOR SCAN-CARDIAC STRIP 07/11/2024 7: 57 AM CHAIN TESTING MACHINE OPERATOR BASIC METABOLIC PANEL ALEXANDER 07/11/2024 6:46 AM CHAIN TESTING MACHINE OPERATOR CREATININE ALEXANDER 07/11/2024 6:46 AM CHAIN TESTING MACHINE OPERATOR LIPID PANEL ALEXANDER 07/11/2024 6:46 AM CHAIN TESTING MACHINE OPERATOR TROPONIN T (HS) ONE TIME Timed 07/11/2024 6:46 AM CHAIN TESTING MACHINE OPERATOR APTT STAT 07/11/2024 4:46 AM CHAIN TESTING MACHINE OPERATOR EKG 12 LEAD Routine 07/11/2024 4:28 AM CHAIN TESTING MACHINE OPERATOR APTT STAT 07/11/2024 3:15 AM CHAIN TESTING MACHINE OPERATOR CBC WITH AUTO DIFFERENTIAL ALEXANDER 07/11/2024 3:13 AM CHAIN TESTING MACHINE OPERATOR CBC WITH AUTO DIFFERENTIAL ALEXANDER 07/11/2024 3:13 AM CHAIN TESTING MACHINE OPERATOR CREATININE ALEXANDER 07/11/2024 3:13 AM CHAIN TESTING MACHINE OPERATOR TROPONIN T (HS) ACUTE W/2HR REFLEX STAT 07/11/2024 3:13 AM CHAIN TESTING MACHINE OPERATOR HEMOGLOBIN Early AM 07/11/2024 3:13 AM CHAIN TESTING MACHINE OPERATOR PLATELET COUNT Early AM 07/11/2024 3:13 AM CHAIN TESTING MACHINE OPERATOR SCAN-CARDIAC STRIP 07/11/2024 2: 57 AM CHAIN TESTING MACHINE OPERATOR COLONOSCOPY SCREENING Routine 11/24/2023 8:21 AM CDT Polyp of colon, unspecified part of colon, unspecified type from Last 3 Months or Most Recently Relevant to Health Maintenance Results * SODIUM (07/12/2024 8:13 AM CHAIN TESTING MACHINE OPERATOR) SODIUM 140 136 - 145 mmol/L 07/12/2024 9:25 AM CHAIN TESTING MACHINE OPERATOR [facility] Blood BLOOD SPECIMEN / Unknown Venipuncture / Unknown 07/12/2024 8:13 AM CHAIN TESTING MACHINE OPERATOR 07/12/2024 8:57 AM CHAIN TESTING MACHINE OPERATOR us Madeline Terry MD CHEMISTRY Final R esult [facility] [address] [place] [address], [place] * POTASSIUM (07/12/2024 8:13 AM CHAIN TESTING MACHINE OPERATOR) POTASSIUM 4.7 3.5 - 5.1 mmol/L 07/12/2024 9:25 AM CHAIN TESTING MACHINE OPERATOR [facility] Blood BLOOD SPECIMEN / Unknown Venipuncture / Unknown 07/12/2024 8:13 AM CHAIN TESTING MACHINE OPERATOR 07/12/2024 8:57 AM CHAIN TESTING MACHINE OPERATOR us Madeline Terry MD CHEMISTRY Final R esult Performing Organization Address City/[facility]/ZIP Co de Phone Number [facility] [address] [place] [address], [place] * (ABNORMAL) Creatinine FOR ADD ON (07/12/2024 8:13 AM CHAIN TESTING MACHINE OPERATOR) Only the most recent of3 resultswithin the time period is included. eGFR 66(L) >90 mL/min/1.7 3m2 07/12/2024 9:57 AM CHAIN TESTING MACHINE OPERATOR [facility] Comment:As of 2021, eG FR is calculated by the CKD-EPI creatinine equation without race adjustment. eGFR can be influenced by muscle mass, exercise, and diet. The reported eGFR is an estimation only and is only applicable if the renal function is stable. CREATININE 1.16 0.70 - 1.20 mg/dL 07/12/2024 9:57 AM CHAIN TESTING MACHINE OPERATOR [facility] Blood BLOOD SPECIMEN / Unknown Venipuncture / Unknown 07/12/2024 8:13 AM CHAIN TESTING MACHINE OPERATOR 07/12/2024 8:57 AM CHAIN TESTING MACHINE OPERATOR us Maryan Zaragoza NP CHEMISTRY Final Result Performing Organization Address City/[facility]/ZIP Co de Phone Number [facility] [address] [place] [address], [place] * Magnesium AM (07/12/2024 8:13 AM CHAIN TESTING MACHINE OPERATOR) MAGNESIUM 1.9 1.6 - 2.4 mg/dL 07/12/2024 9:25 AM CHAIN TESTING MACHINE OPERATOR [facility] Blood BLOOD SPECIMEN / Unknown Venipuncture / Unknown 07/12/2024 8:13 AM CHAIN TESTING MACHINE OPERATOR 07/12/2024 8:57 AM CHAIN TESTING MACHINE OPERATOR Madeline Terry MD CHEMISTRY Final R esult [facility] [address] [place] [address], * EKG - In AM (07/12/2024 6:13 AM CHAIN TESTING MACHINE OPERATOR) Only the most recent of2 resultswithin the [...] NOW QTc 437 ms BEYOND NOW P [place] 55 degrees BEYOND NOW R [place] 52 degrees BEYOND NOW T [place] 97 degrees BEYOND NOW 07/12/2024 6:13 AM CHAIN TESTING MACHINE OPERATOR 07/12/2024 11:53 AM CHAIN TESTING MACHINE OPERATOR Erik Arias MD EKG ORD Final Result Performing Organization Address City/[facility]/ZIP Co de Phone Number BEYOND NOW [place], [place] * SCAN-CARDIAC STRIP (07/12/2024 4:53 AM CHAIN TESTING MACHINE OPERATOR) Scanner OTHER Final Result * (ABNORMAL) APTT (07/11/2024 8:01 PM CHAIN TESTING MACHINE OPERATOR) Only the most recent of4 resultswithin the time period is included. APTT 156(HH) 25 - 36 sec 07/11/2024 8:51 PM CHAIN TESTING MACHINE OPERATOR [facility] Blood BLOOD SPECIMEN / Unknown Butterfly / Unknown 07/11/2024 8:01 PM CHAIN TESTING MACHINE OPERATOR 07/11/2024 8:14 PM CHAIN TESTING MACHINE OPERATOR Narrative [facility] - 07/11/2024 8:51 PM CHAIN TESTING MACHINE OPERATOR Therapeutic Range: 59-89 seconds Madeline Terry MD HEMATOLOGY Final R esult Performing Organization Address City/[facility] Co de Phone Number [facility] [address] [place] [address], [place] * SCAN-CARDIAC STRIP (07/11/2024 7:30 PM CHAIN TESTING MACHINE OPERATOR) Scanner OTHER Final Result * (ABNORMAL) ACTIVATED CLOTTING TIME [id number] ACT (07/11/2024 7:00 PM CHAIN TESTING MACHINE OPERATOR) Only the most recent of2 resultswithin the time period is included. ACTIVATED CLOTTING TIME, POCT 243(H) 74 - 125 sec 07/11/2024 7:08 PM CHAIN TESTING MACHINE OPERATOR [facility] Blood BLOOD SPECIMEN / Unknown 07/11/2024 7:00 PM CHAIN TESTING MACHINE OPERATOR 07/11/2024 7:08 PM CHAIN TESTING MACHINE OPERATOR Madeline Terry MD HEMATOLOGY Final R esult Performing Organization Address [facility] Co de Phone Number [facility] [address] [place] [address], [place] * CVL CORONARY ANGIOGRAM POSS PCI (07/11/2024 6:33 PM CHAIN TESTING MACHINE OPERATOR) Anatomical Region Laterality Modality Other 07/11/2024 6:33 PM CHAIN TESTING MACHINE OPERATOR Narrative Procedure Note Erik Arias MD - 07/11/2024 7:19 PM CST DATE OF SERVICE: 07/11/2024 PREOPERATIVE DIAGNOSES: 1. Acute non-ST elevation OK. 2. Status post coronary artery bypass surgery. [...] posterolateral branch. SUMMARY OF FINDINGS: 1. Acute OK. 2. Late stent thrombosis in the obtuse marginal, good drug-eluting stentresult. 3. All grafts patent. 4. Evolut looks deeply implanted as though it shifted inward towards theLV in comparison to the deployment carried out in 08/2023. 5. Recommend dual antiplatelet therapy for 12 months. 6. Successful Perclose groin closure. 7. No complication. Results are automatically released to your [employer]) accountonce available, in compliance with federal regulations. This means thatyou may see your results before your provider has had a chance to reviewthem. Please allow 2-3 business days for your provider to comment on theresults. MD STEFFANIE ROCHA/JACOBO/CAITY/EDW VJID: [id number] TJID: [id number] cc: PURNIMA PINTO us Provider Referring CV IMAGING Edited Result - Final * HEMOGLOBIN (07/11/2024 4:41 PM CHAIN TESTING MACHINE OPERATOR) Only the most recent of2 resultswithin the time period is included. HEMOGLOBIN 15.8 13.5 - 17.5 g/dL 07/11/2024 4:51 PM CHAIN TESTING MACHINE OPERATOR [facility] MCV 89 80 - 100 fL 07/11/2024 4:51 PM CHAIN TESTING MACHINE OPERATOR [facility] Blood BLOOD SPECIMEN / Unknown Butterfly / Unknown 07/11/2024 4:41 PM CHAIN TESTING MACHINE OPERATOR 07/11/2024 4:47 PM CHAIN TESTING MACHINE OPERATOR Narrative [facility] - 07/11/2024 4:51 PM CHAIN TESTING MACHINE OPERATOR Every morning while on IV heparin. us Tanvir Sky MD HEMATOLOGY Final Result [facility] [address] [place] [address], [place] * SCAN CORRESP-EKG RESULTS (07/11/2024 11:49 AM CHAIN TESTING MACHINE OPERATOR) Narrative 07/11/2024 11:49 AM CHAIN TESTING MACHINE OPERATOR Ordered by an unspecified provider. us Other Clinical Staff OTHER Final Resul t * SCAN CORRESP-IMAGING (07/11/2024 11:49 AM CHAIN TESTING MACHINE OPERATOR) Anatomical Region Laterality Modality Other Narrative 07/11/2024 11:49 AM CHAIN TESTING MACHINE OPERATOR Ordered by an unspecified provider. us Other Clinical Staff OTHER Final Resul t * ECHO TTE COMPLETE WO CONTRAST (07/11/2024 10:57 AM CHAIN TESTING MACHINE OPERATOR) AORTIC VALVE MEAN PG 7 mmHg EJECTION FRACTION 61 % LVEDD 4.4 cm EJECTION FRACTION 60 - 65% Anatomical Region Laterality Modality Ultrasound 07/11/2024 9:40 AM CHAIN TESTING MACHINE OPERATOR Narrative 07/11/2024 11:03 AM CHAIN TESTING MACHINE OPERATOR ECHOCARDIOGRAM RYAN BISHOP : 1950 73 years Study Date: 07/11/2024 9:40:25 AM Gender: M BP: 114/73 mmHg Height: 180.00 cm BSA: 2.14 m Weight: 94.00 kg Tech: [facility] Referring MD: YOUNG FORTE Site: [facility] Reading Location: [facility] Patient Location: Inpatient. Procedure: 2D, Color Doppler [...] . This study was interpreted by an [facility] accredited facility. Final Procedure Note Jorge Crawley MD - 07/11/2024 ECHOCARDIOGRAM RYAN BISHOP : 1950 73 years Study Date: 07/11/2024 9:40:25 AM Gender: M BP: 114/73 mmHg Height: 180.00 cm BSA: 2.14 m Weight: 94.00 kg Tech: [facility] Referring MD: YOUNG FORTE Site: [facility] Reading Location: [facility] IP Patient Location: [...] . This study was interpreted by an [facility] accredited facility. Final us Young Zayjudi DO ECHO ORD Final Resul t * SCAN-CARDIAC STRIP (07/11/2024 7:57 AM CHAIN TESTING MACHINE OPERATOR) us Scanner OTHER Final Result * (ABNORMAL) TROPONIN T (HS) ONE TIME (07/11/2024 6:46 AM CHAIN TESTING MACHINE OPERATOR) TROPONIN T HS 4,705(H) 6-15 ng/L ng/L 07/11/2024 7:48 AM CHAIN TESTING MACHINE OPERATOR [facility] Blood BLOOD SPECIMEN / Unknown Venipuncture / Unknown 07/11/2024 6:46 AM CHAIN TESTING MACHINE OPERATOR 07/11/2024 7:17 AM CHAIN TESTING MACHINE OPERATOR Young Forte DO CHEMISTRY Final Resul t Performing Organization Address City/[facility] Co de Phone Number [facility] [address] [place] [address], * LIPID PANEL (07/11/2024 6:46 AM CHAIN TESTING MACHINE OPERATOR) CHOLESTEROL,TOTAL 109 100 - 199 mg/dL 07/11/2024 7:48 AM CHAIN TESTING MACHINE OPERATOR [facility] Comment: Cholesterol, Total Reference Ranges Desirable <200 mg/dL Borderline 200-239 mg/dL High >=240 mg/dL TRIGLYCERIDES 111 <150 mg/dL 07/11/2024 7:48 AM CHAIN TESTING MACHINE OPERATOR [facility] HDL CHOLESTEROL 41 >40 mg/dL 7:48 AM CHAIN TESTING MACHINE OPERATOR [facility] NON-HDL CHOLESTEROL 68 <145 mg/dl 07/11/2024 7:48 AM CHAIN TESTING MACHINE OPERATOR [facility] CHOL/HDL RATIO 2.66 <4.50 07/11/2024 7:48 AM CHAIN TESTING MACHINE OPERATOR [facility] LDL CHOLESTEROL 46 <=130 mg/dL 07/11/2024 7:48 AM CHAIN TESTING MACHINE OPERATOR [facility] VLDL CHOLESTEROL 22 <=30 mg/dL 07/12/19 7:48 AM CHAIN TESTING MACHINE OPERATOR [facility] Blood BLOOD SPECIMEN / Unknown Venipuncture / Unknown 07/11/2024 6:46 AM CHAIN TESTING MACHINE OPERATOR 07/11/2024 7:17 AM CHAIN TESTING MACHINE OPERATOR Jonelle You ENVIRONMENTAL AUDITOR CHEMISTRY Final Resul t Performing Organization Address City/[facility]/ZIP Co de Phone Number [facility] [address] [place] [address], * (ABNORMAL) BASIC METABOLIC PANEL (07/11/2024 6:46 AM CHAIN TESTING MACHINE OPERATOR) SODIUM 142 136 - 145 mmol/L 07/11/2024 4:54 PM CHAIN TESTING MACHINE OPERATOR [facility] POTASSIUM 4.8 3.5 - 5.1 mmol/L 07/11/2024 4:54 PM [facility] CHLORIDE 108(H) 98 - 107 mmol/L 07/11/2024 4:54 PM [facility] CO2,TOTAL 19(L) 22 - 29 mmol/L 07/11/2024 4:54 PM [facility] ANION GAP 15 5 - 18 07/11/2024 4:54 PM [facility] GLUCOSE 108(H) 70 - 99 mg/dL 07/11/2024 4:54 PM [facility] CALCIUM 9.0 8.8 - 10.4 mg/dL 07/11/2024 4:54 PM [facility] Comment: Reference ranges for this test were updated on 03/12/2024 to reflect our healthy population more accurately. Reference range changes are not retroactively applied to results, but previous results using the same methodology can be interpreted in the context of the new reference range. BUN 16 8 - 23 mg/dL 07/11/2024 4:54 PM [facility] CREATININE 1.17 0.70 - 1.20 mg/dL 07/11/2024 4:54 PM [facility] BUN/CREAT RATIO 14 10 - 20 4:54 PM [facility] eGFR 65(L) >90 mL/min/1. 73m2 07/11/2024 4:54 PM [facility] Comment: As of 2021, [...] Unknown Venipuncture / Unknown 07/11/2024 6:46 AM CHAIN TESTING MACHINE OPERATOR 07/11/2024 7:17 AM CHAIN TESTING MACHINE OPERATOR us Tanvir Sky MD CHEMISTRY Final Result [facility] [address] [place] [address], [place] * (ABNORMAL) TROPONIN T (HS) ACUTE W/2HR REFLEX (07/11/2024 3:13 AM CHAIN TESTING MACHINE OPERATOR) TROPONIN T HS 4,877(H) 6-15 ng/L ng/L 07/11/2024 3:56 AM CHAIN TESTING MACHINE OPERATOR [facility] Blood BLOOD SPECIMEN / Unknown Venipuncture / Unknown 07/11/2024 3:13 AM CHAIN TESTING MACHINE OPERATOR 07/11/2024 3:36 AM CHAIN TESTING MACHINE OPERATOR Narrative [facility] - 07/11/2024 3:56 AM CHAIN TESTING MACHINE OPERATOR hs-cTnT (Elecsys Troponin T Gen 5) concentration [...] Young Forte DO CHEMISTRY Final Resul t [facility] [address] [place] [address], * (ABNORMAL) CBC WITH AUTO DIFFERENTIAL (07/11/2024 3:13 AM CHAIN TESTING MACHINE OPERATOR) [facility] WHITE BLOOD COUNT 10.7 4.5 - 11.0 thou/cu mm 07/11/2024 5:20 PM CHAIN TESTING MACHINE OPERATOR [facility] RED BLOOD COUNT 5.26 4.30 - 5.90 mil/cu mm 07/11/2024 5:20 PM CHAIN TESTING MACHINE OPERATOR [facility] HEMOGLOBIN 15.2 13.5 - 17.5 g/dL 07/11/2024 5:20 PM [facility] HEMATOCRIT 48.3 37.0 - 53.0 % 07/11/2024 5:20 PM CHAIN TESTING MACHINE OPERATOR [facility] MCV 90 80 - 100 fL 07/11/2024 5:20 PM CHAIN TESTING MACHINE OPERATOR [facility] MCH 29.7 26.0 - 34.0 pg 07/11/2024 5:20 PM CHAIN TESTING MACHINE OPERATOR [facility] MCHC 32.3 32.0 - 36.0 g/dL 07/11/2024 5:20 PM CHAIN TESTING MACHINE OPERATOR [facility] RDW 14.3 11.5 - 15.5 % 07/11/2024 5:20 PM CHAIN TESTING MACHINE OPERATOR [facility] PLATELET COUNT 181 140 - 440 thou/cu mm 07/11/2024 5:20 PM CHAIN TESTING MACHINE OPERATOR [facility] MPV 9.6 6.5 - 11.0 fL 07/11/2024 5:20 PM CHAIN TESTING MACHINE OPERATOR [facility] NRBC 0.0 % 07/11/2024 5:20 PM CHAIN TESTING MACHINE OPERATOR [facility] ABS NRBC 0.0 thou /cu mm 07/11/2024 5:20 PM [facility] % NEUT 75.4 % 07/11/2024 5:20 PM [facility] % LYMPH 14.6 % 07/11/2024 5:20 PM [facility] % MONO 8.0 % 07/11/2024 5:20 PM [facility] % EOS 0.9 % 07/11/2024 5:20 PM [facility] % BASO 0.7 % 07/11/2024 5:20 PM [facility] % IMMATURE GRAN (METAS,MYELOS,NJ OS) 0.4 % 07/11/2024 5:20 PM [facility] ABSOLUTE NEUTROPHILS 8.1(H) 1.7 - 7.0 thou/cu mm 07/11/2024 5:20 PM [facility] ABSOLUTE LYMPHOCYTES 1.6 0.9 - 2.9 thou/cu mm 07/11/2024 5:20 PM [facility] ABSOLUTE MONOCYTES 0.9(H) <0.9 thou/cu mm 07/11/2024 5:20 PM [facility] ABSOLUTE EOSINOPHILS 0.1 <0.5 thou/cu mm 07/11/2024 5:20 PM [facility] ABSOLUTE BASOPHILS 0.1 <0.3 thou/cu mm 07/11/2024 5:20 PM [facility] ABSOLUTE IMMATURE GRANULOCYTES(MET ,MYELOS,PROS) 0.0 <0.3 thou/cu mm 07/11/2024 5:20 PM [facility] Blood BLOOD SPECIMEN / Unknown Venipuncture / Unknown 07/11/2024 3:13 AM CHAIN TESTING MACHINE OPERATOR 07/11/2024 3:36 AM [facility] 07/11/[facility] 5:20 PM CHAIN TESTING MACHINE OPERATOR Every morning while on IV heparin. Necessary every morning while on IV heparin. us Tanvir Sky MD HEMATOLOGY Final Result Performing Organization Address City/[facility] Co de Phone Number [facility] [address] [place] [id number], * PLATELET COUNT (07/11/2024 3:13 AM CHAIN TESTING MACHINE OPERATOR) PLATELET COUNT 181 140 - 440 thou/cu mm 07/11/2024 3:40 AM CHAIN TESTING MACHINE OPERATOR [facility] MPV 9.6 6.5 - 11.0 fL 07/11/2024 3:40 AM CHAIN TESTING MACHINE OPERATOR [facility] Blood BLOOD SPECIMEN / Unknown Venipuncture / Unknown 07/11/2024 3:13 AM CHAIN TESTING MACHINE OPERATOR 07/11/2024 3:36 AM CHAIN TESTING MACHINE OPERATOR Narrative [facility] - 07/11/2024 3:40 AM CHAIN TESTING MACHINE OPERATOR Every morning while on IV heparin. Necessary every morning while on IV heparin. us Young Forte DO HEMATOLOGY Final Resul t Performing Organization Address [facility] Co de Phone Number [facility] [address] [address], [place] * SCAN-CARDIAC STRIP (07/11/2024 2:57 AM CHAIN TESTING MACHINE OPERATOR) us Scanner OTHER Final Result * SCAN-COLONOSCOPY (11/24/2023 12:00 AM CDT) us Scanner OTHER Final Result from Last 3 Months or Most Recently Relevant to Health Maintenance Insurance MEDICARE PART A HB ONLY [facility] MR MEDICARE PROVIDER BASED MR BC MODOC Advance Directives * Full Code (Latest Code [...] 11:51 AM 11/29/2018 6:34 PM Care Teams Boil Off Worker Relationship Specialty Start Date End Date Lyle Perry MD [address] [place] [address] PCP - General Family Practice 10/07/20
--- OUTSIDE RECORDS SUMMARY | 2024-09-13 10:48 | XMS_ITS | Clinical Summary ---
[facility] Address [address], [place] [address] Care Team Providers Care Drum Barker Operator Name Role Phone Lyle Perry MD Primary Care Provider [phone] Source Comments You are receiving this document as you are listed as the primary care provider,follow-up provider, or the patient has been referred to you for consultation.This is in compliance with the Medicare and[facility] EHR Incentive Program,which states Providers who transition their patient to another setting of careor provider of care or refers their patient to another provider of care shouldprovide summary care record for each transition of care or referral. [employer] Board of Addiction Medicine (ABAM) Allergies Active Allergy Reactions Criticality Noted Date [...] TABS Take 1 Capsule by mouth. Active [place]-3 Fatty Acids ([facility]-3 GUMMY FISH/DHA) 113.5 [...] patient's age to complete this topic Insurance [facility] MEDICARE ADVANTAGE [facility] MEDICARE ADVANTAGE Care Teams Drum Barker Operator Relationship Specialty Start Date End Date Lyle Perry MD [address] [place] [address] PCP - General Family Practice 12/30/22
[2024-09-13] MEDS: 0.9 % SODIUM CHLORIDE 1000 ml 1,000 ML IV (11:05)
[2024-09-13 11:09] LABS: Lactate* 1.1 mmol/L (0.5-1.9)
[2024-09-13 11:10] LABS: Basophils Absolute Auto 0.05 K/uL (0.00-0.30); Basophils Percent Auto 0.7 % (0.0-3.0); Eosinophils Absolute Auto 0.09 K/uL (0.00-0.50); Eosinophils Percent Auto 1.2 % (0.0-7.0); Hematocrit* 52.3 % (37.0-53.0); Hemoglobin* 16.7 gm/dL (13.5-17.5); Immature Granulocytes Abs Auto 0.03 K/uL (0.00-0.30); Immature Granulocytes Pct Auto 0.4 %; Lymphocytes Percent Auto 13.9 % (20-44); Mean Corpuscular HGB Conc 32 gm/dL (32-36); Mean Corpuscular Hemoglobin 29 pg (26-34); Mean Corpuscular Volume 91 fL (80-100); Monocytes Percent Auto 7.6 % (0.0-11.0); Neutrophils Percent Auto 76.2 % (42.0-72.0); Platelet Count* 168 K/uL (140-440); RDW Coefficient of Variation % 13.1 % (11.5-15.5); Red Blood Count* 5.76 m/uL (4.30-5.90); White Blood Count* 7.48 K/uL (4.50-11.00)
[2024-09-13 11:19] LABS: Troponin, Point-of-Care* 0.01 ng/ml (0.01-0.04)
[2024-09-13 11:22] LABS: Slide Review Reflex No
[2024-09-13 11:27] LABS: Chloride* 106 mmol/L (96-114); Potassium* 4.9 mmol/L (3.6-5.1); Sodium* 142 mmol/L (135-149)
[2024-09-13 11:30] LABS: Anion Gap 10 mEq/L (7-15); Blood Urea Nitrogen* 20 mg/dL (7-30); Carbon Dioxide* 26 mmol/L (20-32); Creatinine* 1.3 mg/dL (0.5-1.5); Est. Creatinine Clearance* 54.72; Estimated Glomerular Filt Rate 58 ml/min
[2024-09-13 11:31] LABS: Calcium* 9.2 mg/dL (8.4-10.6); Glucose* 79 mg/dL (60-115)
[2024-09-13 11:48] LABS: PCR FLU A Negative PCR FLU A (Negative); PCR FLU B Negative PCR FLU B (Negative); SARS PCR* Negative SARS-CoV-2 (Negative)
[2024-09-13 13:52] LABS: Troponin, Point-of-Care* 0.01 ng/ml (0.01-0.04)
== END 2024-09-13 14:12 | disposition home or self-care (01) ==
PROVIDERS: Emergency Provider Emergency Medicine; PCP Family Medicine
DX: I10 Essential (primary) hypertension (principal)
CPT/HCPCS: 36415; 71046; 80048; 83605; 84443; 84484; 85025; 87637; 93005; 99283; 99284; J7030

== ENCOUNTER 2025-02-04 14:42 | Outpatient (CLI) | payer MEDICARE, SELFPAY | END 2025-02-04 14:43 | disposition home or self-care (01) | PROVIDERS: PCP Family Medicine; Visit Provider Family Medicine | DX: I49.9 Cardiac arrhythmia, unspecified (principal) | CPT/HCPCS: 84439; 84443 ==

== ENCOUNTER 2025-04-23 06:57 | Outpatient (CLI) | payer MEDICARE, SELFPAY ==
--- NOTE | 2025-04-23 07:15 | CRLHL7_ITS ---
For Patients: As a result of the Century Cures Act, medical imaging exams and procedure reports are released immediately into your electronic medical record. You may view this report before your referring provider. If you have questions, please contact your health care provider. INDICATION: Low back pain. TECHNIQUE: Noncontrast sagittal and axial T1, T2, and sagittal STIR sequences are provided. No comparisons. FINDINGS: Degenerative marrow signal change adjacent to the L4- 5 end plates. Schmorl`s nodes adjacent to the L2-3 end plates. The overall stature, alignment and intrinsic marrow signal within the remainder of the lumbar spine is within normal limits. Conus is normal. T12-L1, L1-2: Unremarkable L2-3: Mild circumferential disc bulge with mild facet arthropathy results in mild central canal narrowing with no foraminal narrowing. L3-4: Minor posterior disc bulge results in no central canal or foraminal narrowing. 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 Mild left and moderate right foraminal narrowing. L5-S1: Mild posterior disc bulge with mild bilateral facet arthropathy results in mild bilateral foraminal narrowing with no central canal narrowing. IMPRESSION: 1. Severe central canal and bilateral lateral recess narrowing with moderate right foraminal narrowing at L4-5. 2. Milder degenerative changes within the remainder of the lumbar spine as outlined above. Dictated by Javi Hui MD @ 04/24/2025 2:21:30 PM (Electronically Signed)
== END 2025-04-23 06:58 | disposition home or self-care (01) ==
LOC: MRI 06:58
PROVIDERS: PCP Family Medicine; Visit Provider Family Medicine
DX: M51.26 Other intervertebral disc displacement, lumbar region (principal)
CPT/HCPCS: 72148